=== PATIENT | male | born 1965 | race Caucasian/White ===

== ENCOUNTER 2017-06-16 23:51 | Emergency (ER) | payer OTHER ==
[2017-06-17 00:24] VITALS: BP 129/73; PULSE 87; TEMP 97.7; BMI 37.3
--- NOTE | 2017-06-17 00:50 | PDOC ---
History of Present Illness - General History Source: Patient Exam Limitations: No Limitations, Intoxication - History of Present Illness Initial Comments: 06/17/17 01:20 The patient is a 52 year old male with a significant past medical history of myocardial infarction, bladder cancer, diabetes mellitus, dementia, hypertension , and hyperlipidemia, who presents to the emergency department complaining of nausea, vomiting and diaphoresis s/p alcohol consumption at the bar (approx. 6 or 7 Timoteo Contreras shots at the bar per patient). The patient states he felt fine at the bar but upon arriving home he began feeling nausea and vomited 1x. He reports associated symptoms of diaphoresis. He denies any recent fevers, chills , headache or dizziness. He denies any recent chest pain or shortness of breath. Allergies: Penicillins PCP: Dr. Kylie Moralez <Edu Kirby - Last Filed: 06/17/17 01:20> <Aditi Arguello - Last Filed: 06/17/17 05:11> - General Chief Complaint: Nausea/Vomiting Stated Complaint: NAUSEA/VOMITING Time Seen by Provider: 06/17/17 00:49 Past History <Edu Kirby - Last Filed: 06/17/17 01:20> - Past Medical History Anemia: No Asthma: No Cancer: Yes (bladder) Cardiac Disorders: Yes ([place] with cardiac stents) COPD: No Dementia: Yes Diabetes: Yes HTN: Yes Hypercholesterolemia: Yes Seizures: No - Surgical History Appendectomy: Yes Neurologic Surgery: No - Immunization History Immunization Up to Date: Yes - Suicide/Smoking/Psychosocial Hx Smoking History: Former smoker Have you smoked in the past 12 months: No Number of Cigarettes Smoked Daily: 20 If you are a former smoker, when did you quit?: 2013 Information on smoking cessation initiated: No 'Breaking Loose' booklet given: 05/27/15 Hx Alcohol Use: Yes Drug/Substance Use Hx: No Substance Use Type: None Hx Substance Use Treatment: No <Aditi Arguello - Last Filed: 06/17/17 05:11> - Past Medical History Allergies/Adverse Reactions: Allergies Allergy/AdvReac Type Severity Reaction Status Date / Time Penicillins AdvReac Verified 06/17/17 00:24 Home Medications: Ambulatory Orders Amlodipine Besylate [Norvasc -] 10 mg PO DAILY tablet 01/21/16 Lisinopril [Prinivil] 10 mg PO DAILY tablet 01/21/16 Oxycodone HCl/Acetaminophen [Percocet 5-325 mg Tablet] 1 - 2 tab PO Q6H PRN #20 tablet MDD 40 01/21/16 Review of Systems - Review of Systems Comments:: 06/17/17 01:25 GENERAL/CONSTITUTIONAL: No weakness. HEAD, EYES, EARS, NOSE AND THROAT: No change in vision. No ear pain or discharge. No sore throat. CARDIOVASCULAR: No chest pain or shortness of breath. RESPIRATORY: No cough, wheezing, or hemoptysis. GASTROINTESTINAL: +Nausea. +Vomiting. No diarrhea or constipation. GENITOURINARY: No dysuria, frequency, or change in urination. MUSCULOSKELETAL: No joint or muscle swelling or pain. No neck or back pain. SKIN: No rash NEUROLOGIC: No headache, vertigo, loss of consciousness, or change in strength/ sensation. ENDOCRINE: No increased thirst. No abnormal weight change. HEMATOLOGIC/LYMPHATIC: No anemia, easy bleeding, or history of blood clots. ALLERGIC/IMMUNOLOGIC: No hives or skin allergy. <Edu Kirby - Last Filed: 06/17/17 01:20> *Physical Exam - Vital Signs Last Vital Signs Temp Pulse Resp BP Pulse Ox 97.7 F 87 18 129/73 97 06/17/17 00:17 06/17/17 00:17 06/17/17 00:17 06/17/17 00:17 06/17/17 00:17 - Physical Exam Comments: 06/17/17 01:28 GENERAL: Awake, alert, and fully oriented, in no acute distress HEAD: No signs of trauma EYES: PERRLA, EOMI, sclera anicteric, conjunctiva clear ENT: +Dry mucous membranes. Auricles normal inspection, hearing grossly normal, nares patent, oropharynx clear without exudates. NECK: Normal ROM, supple, no lymphadenopathy, JVD, or masses LUNGS: Breath sounds equal, clear to auscultation bilaterally. No wheezes, and no crackles HEART: Regular rate and rhythm, normal S1 and S2, no murmurs, rubs or gallops ABDOMEN: +Diffuse abdominal tenderness. Soft, normoactive bowel sounds. No guarding, no rebound. No masses EXTREMITIES: Normal range of motion, no edema. No clubbing or cyanosis. No cords, erythema, or tenderness NEUROLOGICAL: Cranial nerves II through XII grossly intact. Normal speech, normal gait SKIN: Warm, Dry, normal turgor, no rashes or lesions noted. <Edu Kirby - Last Filed: 06/17/17 01:20> - Vital Signs Last Vital Signs Temp Pulse Resp BP Pulse Ox 97.7 F 87 18 129/73 97 06/17/17 00:17 06/17/17 00:17 06/17/17 00:17 06/17/17 00:17 06/17/17 00:17 <Aditi Arguello - Last Filed: 06/17/17 05:11> ED Treatment Course - LABORATORY CBC & Chemistry Diagram: 06/17/17 01:33 06/17/17 01:33 <Aditi Arguello - Last Filed: 06/17/17 05:11> Medical Decision Making - Medical Decision Making 06/17/17 05:08 Pt is diabeticc and HTN and states that he went out to a bar with friend and had a lot of alcoholic beverages to drink. Pt hasn't had a drink in 30 yrs, and states that the alcohol didn't agree with him. Pt appears dehydrated. He feels better after a liter of hydration. Labs are normal. Glc is elevated. Pt will be discharged home with suggestion not to drink. Alcohol level was <5 in the ER. <Aditi Arguello - Last Filed: 06/17/17 05:11> *DC/Admit/Observation/Transfer - Attestations Scribe Attestion: 06/17/17 01:30 Documentation prepared by Edu Kirby, acting as director medical writing for Aditi Arguello MD. <Edu Kirby - Last Filed: 06/17/17 01:20> - Discharge Dispostion Admit: No <Aditi Arguello - Last Filed: 06/17/17 05:11> Diagnosis at time of Disposition: Nausea & vomiting, Alcohol poisoning - Discharge Dispostion Disposition: HOME Condition at time of disposition: Improved - Referrals Referrals: Kylie Sanches MD [Primary Care Provider] - - Patient Instructions Printed Discharge Instructions: DI for Nausea -- Adult, DI for Vomiting -- Adult, DI for Alcohol Poisoning
[2017-06-17] MEDS ORDERED: SODIUM CHLORIDE 0.9% 1000 ML INFUS.BAG IV ONE (01:16)
[2017-06-17] MEDS ORDERED: FAMOTIDINE 20 MG/50 ML IVPB 50 ML IVPB ONE (01:17)
[2017-06-17 02:00] LABS: BASOPHIL 0.4 % (0-2.0); EOSINOPHIL 0.6 % (0-4.5); MCHC 33.9 g/dl (32.0-35.9); MEAN CELL VOLUME 85.7 fl (80-96); MEAN PLT VOLUME 8.3 fl (7.5-11.1); NEUTROPHILS 84.3 % (42.8-82.8); PLATELET COUNT 238 K/MM3 (134-434); RDW 13.1 % (11.9-15.9); WHITE BLOOD COUNT 14.2 K/mm3 (4.0-10.0)
[2017-06-17 02:31] LABS: ALBUMIN 3.6 g/dl (3.4-5.0); ANION GAP 10 (8-16); BILIRUBIN,TOTAL 0.5 mg/dL (0.2-1.0); CALCIUM 9.2 mg/dL (8.5-10.1); CO2 25 mmol/L (21-32); CREATININE 1.2 mg/dL (0.7-1.3); GLUCOSE,RANDOM 259 mg/dL (74-106); SGOT/AST 15 U/L (15-37); SGPT/ALT 44 U/L (12-78); TOT PROT 6.5 g/dl (6.4-8.2)
[2017-06-17 02:34] LABS: ALK PHOS 104 U/L (45-117); CPK 58 IU/L (39-308); TROPONIN I < 0.02 ng/ml (0.00-0.05)
[2017-06-17 05:48] LABS: ACETONE SERUM NEGATIVE (NEGATIVE)
--- NOTE | 2017-06-18 08:43 | EKG ---
Test Reason : Blood Pressure : / mmHG Vent. Rate : 084 BPM Atrial Rate : 084 BPM P-R Int : 160 ms QRS Dur : 096 ms QT Int : 374 ms P-R-T Axes : 021 -13 092 degrees QTc Int : 441 ms SINUS RHYTHM WITH PREMATURE ATRIAL COMPLEXES CANNOT RULE OUT ANTERIOR INFARCT (CITED ON OR BEFORE 17-JUN-2017) T WAVE ABNORMALITY, CONSIDER LATERAL ISCHEMIA ABNORMAL ECG Confirmed by MD JER, JM ([id number]) on 06/18/2017 8:43:42 AM Referred By: Confirmed By:JM RANDLE MD
== END 2017-06-17 04:28 | disposition home or self-care (01) ==
LOC: JER 23:51
PROC: 3E033GC Introduction of Other Therapeutic Substance into Peripheral Vein, Percutaneous Approach (ICD-10-PCS; principal; 2017-06-16)
DX: F10.10 Alcohol abuse, uncomplicated (principal); R11.2 Nausea with vomiting, unspecified; I25.10 Atherosclerotic heart disease of native coronary artery without angina pectoris; I10 Essential (primary) hypertension; Z95.5 Presence of coronary angioplasty implant and graft; Z87.891 Personal history of nicotine dependence; E11.9 Type 2 diabetes mellitus without complications; E78.00 Pure hypercholesterolemia, unspecified; F03.90 Unspecified dementia, unspecified severity, without behavioral disturbance, psychotic disturbance, mood disturbance, and anxiety; Z85.51 Personal history of malignant neoplasm of bladder
CPT/HCPCS: 36415; 71010-TC; 80053; 80307; 82009; 84484; 85025; 93005; 93010; 96365; 99283-25

== ENCOUNTER 2017-07-06 00:43 | Emergency (ER) | payer OTHER ==
[2017-07-06 01:02] VITALS: BP 171/98; PULSE 92; TEMP 98.4; BMI 37.3
--- NOTE | 2017-07-06 01:08 | PDOC ---
History of Present Illness - General Chief Complaint: Rash Stated Complaint: RASH Time Seen by Provider: 07/06/17 01:07 History Source: Patient - History of Present Illness Initial Comments: 07/06/17 01:23 52 year old male with itchy rash to b/l hadn arm, buttocks and b/l thigh. reports recently living in basement of house. unsure of any skin contact. patient with multiple medical history. Past History - Past Medical History Allergies/Adverse Reactions: Allergies Allergy/AdvReac Type Severity Reaction Status Date / Time Penicillins AdvReac Verified 07/06/17 01:02 Home Medications: Ambulatory Orders Amlodipine Besylate [Norvasc -] 10 mg PO DAILY tablet 01/21/16 Lisinopril [Prinivil] 10 mg PO DAILY tablet 01/21/16 Permethrin [Elimite] 60 gm TP ONCE #1 cream..g. 07/06/17 Anemia: No Asthma: No Cancer: Yes (bladder) Cardiac Disorders: Yes ([place] with cardiac stents) COPD: No Dementia: Yes Diabetes: Yes HTN: Yes Hypercholesterolemia: Yes Seizures: No - Surgical History Appendectomy: Yes Neurologic Surgery: No - Immunization History Immunization Up to Date: Yes - Suicide/Smoking/Psychosocial Hx Smoking History: Current every day smoker Have you smoked in the past 12 months: Yes Number of Cigarettes Smoked Daily: 10 If you are a former smoker, when did you quit?: 2012 Information on smoking cessation initiated: No 'Breaking Loose' booklet given: 05/27/15 Hx Alcohol Use: No Drug/Substance Use Hx: No Substance Use Type: None Hx Substance Use Treatment: No *Physical Exam - Vital Signs Last Vital Signs Temp Pulse Resp BP Pulse Ox 98.4 F 92 H 18 171/98 97 07/06/17 00:52 07/06/17 00:52 07/06/17 00:52 07/06/17 00:52 07/06/17 00:52 - Physical Exam General Appearance: Yes: Appropriately Dressed Extremity: positive: Other (+ interphalangeal b/l arm, groin abdomen, thigh some lesions scabbed) Neurologic: positive: Fully Oriented, Alert, Normal Mood/Affect Progress Note - Progress Note Progress Note: A; scabies P:permetherin. all precautions reviewed. patient verbalized understanding. *DC/Admit/Observation/Transfer Diagnosis at time of Disposition: Scabies - Discharge Dispostion Disposition: HOME - Prescriptions Prescriptions: Permethrin [Elimite] 60 gm TP ONCE #1 cream..g. - Referrals Referrals: Kylie Sanches MD [Primary Care Provider] - - Patient Instructions Printed Discharge Instructions: DI for Scabies Additional Instructions: apply permetherine as per order. - Post Discharge Activity Forms/Work/School Notes: Back to Work
--- NOTE | 2017-07-06 01:23 | PDOC ---
*Physical Exam - Vital Signs Last Vital Signs Temp Pulse Resp BP Pulse Ox 98.4 F 92 H 18 171/98 97 07/06/17 00:52 07/06/17 00:52 07/06/17 00:52 07/06/17 00:52 07/06/17 00:52 Medical Decision Making - Medical Decision Making 07/06/17 01:23 agree with care from MESERET Belle *DC/Admit/Observation/Transfer Diagnosis at time of Disposition: Scabies - Discharge Dispostion Disposition: HOME - Prescriptions Prescriptions: Permethrin [Elimite] 60 gm TP ONCE #1 cream..g. - Referrals Referrals: Kylie Sanches MD [Primary Care Provider] - - Patient Instructions Printed Discharge Instructions: DI for Scabies Additional Instructions: apply permetherine as per order. - Post Discharge Activity Forms/Work/School Notes: Back to Work
== END 2017-07-06 01:56 | disposition home or self-care (01) ==
LOC: JER 00:43
DX: B86 Scabies (principal); F17.210 Nicotine dependence, cigarettes, uncomplicated; Z88.0 Allergy status to penicillin
CPT/HCPCS: 99281-25

== ENCOUNTER 2017-09-25 15:27 | Emergency (ER) | payer OTHER ==
--- NOTE | 2017-09-25 15:38 | PDOC ---
Rapid Medical Evaluation Time Seen by Provider: 09/25/17 15:35 Medical Evaluation: Allergies Allergy/AdvReac Type Severity Reaction Status Date / Time Penicillins AdvReac Verified 07/06/17 01:02 09/25/17 15:35 I have performed a brief in-person evaluation of this patient. The patient presents with a chief complaint of: H/o DM, neuropathy, CAD, ventral hernia, tob hx, recurrent bladder cancer w/ urinary retention s/p cystoscopy last week. F/u with Dr Ford Pertinent physical exam findings:Exam unremarkable I have ordered the following:cbc/chem/ua/cx The patient will proceed to the ED for further evaluation. 09/25/17 15:42
[2017-09-25 15:40] VITALS: TEMP 98.6; BMI 37.3
[2017-09-25 16:09] LABS: BASO % 1.1 % (0-2.0); EOS % 4.7 % (0-4.5); HEMATOCRIT 44.7 % (35.4-49); HEMOGLOBIN 15.1 GM/dL (11.7-16.9); MCH 28.9 pg (25.7-33.7); MCHC 33.7 g/dl (32.0-35.9); MEAN CELL VOLUME 85.6 fl (80-96); MEAN PLT VOLUME 8.5 fl (7.5-11.1); NEUT % 49.2 % (42.8-82.8); PLATELET COUNT 227 K/MM3 (134-434); RBC 5.22 M/mm3 (4.00-5.60); RDW 12.7 % (11.9-15.9); WHITE BLOOD COUNT 5.7 K/mm3 (4.0-10.0)
[2017-09-25 16:31] LABS: URINE APPEARANCE SLCLOUDY; URINE BILIRUBIN NEGATIVE (NEGATIVE); URINE BLOOD 2+ (NEGATIVE); URINE COLOR DKYELLOW; URINE GLUCOSE (UA) 1+ (NEGATIVE); URINE KETONE TRACE (NEGATIVE); URINE NITRITE NEGATIVE (NEGATIVE)
[2017-09-25 16:32] LABS: ALBUMIN 3.6 g/dl (3.4-5.0); ALK PHOS 123 U/L (45-117); ANION GAP 6 (8-16); BILIRUBIN,TOTAL 0.4 mg/dL (0.2-1.0); BLOOD UREA NITROGEN 18 mg/dL (7-18); CALCIUM 8.7 mg/dL (8.5-10.1); CHLORIDE 109 mmol/L (98-107); CO2 27 mmol/L (21-32); CREATININE 1.1 mg/dL (0.7-1.3); GLUCOSE,RANDOM 172 mg/dL (74-106); POTASSIUM 3.7 mmol/L (3.5-5.1); SGOT/AST 18 U/L (15-37); SGPT/ALT 47 U/L (12-78); SODIUM 142 mmol/L (136-145); TOT PROT 6.7 g/dl (6.4-8.2)
[2017-09-25 16:41] LABS: URINE LEUK ESTERASE 1+ (NEGATIVE); URINE PROTEIN 1+ (NEGATIVE)
[2017-09-25 16:44] LABS: EPI CELLS RARE /HPF (FEW); URINE MUCUS FEW
--- NOTE | 2017-09-25 17:03 | PDOC ---
History of Present Illness - General History Source: Patient Exam Limitations: No Limitations - History of Present Illness Initial Comments: 09/25/17 17:11 The patient is a 52 year old male with history of prostate CA with recurrence discovered several weeks ago, hypertension, hyperlipidemia, IDDM with peripheral neuropathies, CAD s/p [place] s/p stents, cigarette smoking, who presents to the ED complaining of urinary retention that began last night. The patient reports he had a cystoscopy last week and subsequently has had difficulty with urination. He is able to produce small amounts of urine, but reports it feels blocked. He also reports associated sharp pain in his penis. No flank pain. No fever or chills. No hematuria or dysuria. No nausea, vomiting, or diarrhea. Urologist: Dr. Lafleur <Tati Hilton - Last Filed: 09/25/17 18:18> <Stella Belle - Last Filed: 09/25/17 18:23> - General Chief Complaint: Urinary Problem Stated Complaint: POST-SURG/ URINARY RETENTION Time Seen by Provider: 09/25/17 15:35 Past History <Tati Hilton - Last Filed: 09/25/17 18:18> - Past Medical History Anemia: No Asthma: No Cancer: Yes (bladder) Cardiac Disorders: Yes ([place] with cardiac stents) COPD: No Dementia: Yes Diabetes: Yes HTN: Yes Hypercholesterolemia: Yes Seizures: No - Surgical History Appendectomy: Yes Neurologic Surgery: No - Immunization History Immunization Up to Date: Yes - Suicide/Smoking/Psychosocial Hx Smoking History: Current every day smoker Have you smoked in the past 12 months: Yes Number of Cigarettes Smoked Daily: 10 If you are a former smoker, when did you quit?: 2013 Information on smoking cessation initiated: No 'Breaking Loose' booklet given: 05/27/15 Hx Alcohol Use: No Drug/Substance Use Hx: No Substance Use Type: None Hx Substance Use Treatment: No <Stella Belle - Last Filed: 09/25/17 18:23> - Past Medical History Allergies/Adverse Reactions: Allergies Allergy/AdvReac Type Severity Reaction Status Date / Time Penicillins AdvReac Verified 09/25/17 15:40 Home Medications: Ambulatory Orders Aspirin [ASA -] 81 mg PO DAILY 09/25/17 Atorvastatin Ca [Lipitor] 80 mg PO HS 09/25/17 Ciprofloxacin [Cipro -] 500 mg PO Q12H #20 tablet 09/25/17 Duloxetine HCl [Cymbalta -] 30 mg PO DAILY 09/25/17 Furosemide [Lasix -] 40 mg PO DAILY 09/25/17 Gabapentin 600 mg PO TID 09/25/17 Hydralazine HCl [Apresoline -] 25 mg PO BID 09/25/17 Insulin (Novolog 70/30) [Novolog Mix 70/30 Flexpen -] 20 units SQ BIDAC Insulin Glargine,Hum.rec.anlog [Basaglar Kwikpen U-100] 20 unit SQ DAILY Lisinopril [Prinivil -] 40 mg PO DAILY 09/25/17 Metoprolol Tartrate [Lopressor -] 25 mg PO DAILY 09/25/17 Naproxen [Naprosyn -] 500 mg PO BID PRN 09/25/17 Potassium Chloride [K-Dur -] 20 meq PO DAILY 09/25/17 Ranitidine HCl [Zantac 75] 75 mg PO DAILY 09/25/17 Tramadol HCl [Ultram] 100 mg PO Q8H PRN 09/25/17 Review of Systems - Review of Systems Able to Perform ROS?: Yes Comments:: 09/25/17 17:23 CONSTITUTIONAL: Absent: fever, chills, diaphoresis, generalized weakness, malaise, loss of appetite HEENT: Absent: rhinorrhea, nasal congestion, throat pain, throat swelling, difficulty swallowing, mouth swelling, ear pain, eye pain, visual Changes CARDIOVASCULAR: Absent: chest pain, syncope, palpitations, irregular heart rate, lightheadedness , peripheral edema RESPIRATORY: Absent: cough, shortness of breath, dyspnea with exertion, orthopnea, wheezing, stridor, hemoptysis GASTROINTESTINAL: Absent: abdominal pain, abdominal distension, nausea, vomiting, diarrhea, constipation, melena, hematochezia GENITOURINARY: Present: urinary retention, penile pain Absent: dysuria, frequency, urgency, hematuria, flank pain MUSCULOSKELETAL: Absent: myalgia, arthralgia, joint swelling SKIN: Absent: rash, itching, pallor HEMATOLOGIC/IMMUNOLOGIC: Absent: easy bleeding, easy bruising, lymphadenopathy, frequent infections ENDOCRINE: Absent: unexplained weight gain, unexplained weight loss, heat intolerance, cold intolerance NEUROLOGIC: Absent: headache, focal weakness or paresthesias, dizziness, unsteady gait, seizure, mental status changes, bladder or bowel incontinence PSYCHIATRIC: Absent: anxiety, depression, suicidal or homicidal ideation, hallucinations. <Tati Hilton - Last Filed: 09/25/17 18:18> *Physical Exam - Vital Signs Last Vital Signs Temp Pulse Resp BP Pulse Ox 98.6 F 98 H 20 159/87 97 09/25/17 15:35 09/25/17 15:35 09/25/17 15:35 09/25/17 15:35 09/25/17 15:35 - Physical Exam Comments: 09/25/17 17:26 GENERAL: Well developed, well nourished. Awake and alert. No acute distress. +Obesity. HEENT: Normocephalic, atraumatic. PERRLA, EOMI. No conjunctival pallor. Sclera are non- icteric. Moist mucous membranes. Oropharynx is clear. NECK: Supple. Full ROM. No JVD. Carotid pulses 2+ and symmetric, without bruits. No thyromegaly. No lymphadenopathy. CARDIOVASCULAR: Regular rate and rhythm. No murmurs, rubs, or gallops. Distal pulses are 2+ and symmetric. PULMONARY: No evidence of respiratory distress. Lungs clear to auscultation bilaterally. No wheezing, rales or rhonchi. ABDOMINAL: Soft, protuberant abdomen. Non-tender. No rebound or guarding. No organomegaly. Normoactive bowel sounds. MUSCULOSKELETAL Normal range of motion at all joints. No bony deformities or tenderness. No CVA tenderness. EXTREMITIES: No cyanosis. No clubbing. No edema. No calf tenderness. SKIN: Warm and dry. Normal capillary refill. No rashes. No jaundice. NEUROLOGICAL: Alert, awake, appropriate. Cranial nerves 2-12 intact. No motor deficits in the in face, upper extremities and lower extremities. Normoreflexic in the upper and lower extremities. Normal speech. Gait is normal without ataxia. PSYCHIATRIC: Cooperative. Good eye contact. Appropriate mood and affect. <Tati Hilton - Last Filed: 09/25/17 18:18> - Vital Signs Last Vital Signs Temp Pulse Resp BP Pulse Ox 98.6 F 98 H 20 159/87 97 09/25/17 15:35 09/25/17 15:35 09/25/17 15:35 09/25/17 15:35 09/25/17 15:35 <YoshiSunilfernando Desouza - Last Filed: 09/25/17 18:23> ED Treatment Course - LABORATORY CBC & Chemistry Diagram: 09/25/17 15:52 09/25/17 15:52 - ADDITIONAL ORDERS Additional order review: Laboratory Results 09/25/17 09/25/17 16:15 15:52 Sodium 142 Potassium 3.7 Chloride 109 H Carbon Dioxide 27 Anion Gap 6 L BUN 18 Creatinine 1.1 Creat Clearance w eGFR > 60 Random Glucose 172 H D Calcium 8.7 Total Bilirubin 0.4 AST 18 ALT 47 Alkaline Phosphatase 123 H Total Protein 6.7 Albumin 3.6 Urine Color Dkyellow Urine Appearance Slcloudy Urine pH 5.0 Ur Specific [place] 1.027 Urine Protein 1+ H Urine Glucose (UA) 1+ H Urine Ketones Trace H Urine Blood 2+ H Urine Nitrite Negative Urine Bilirubin Negative Urine Urobilinogen 2.0 Urine WBC (Auto) 41 Urine RBC (Auto) 72 Ur Epithelial Cells Rare Urine Mucus Few 09/25/17 15:52 RBC 5.22 MCV 85.6 MCHC 33.7 RDW 12.7 MPV 8.5 Neutrophils % 49.2 D Lymphocytes % 31.0 D Monocytes % 14.0 H D Eosinophils % 4.7 H D Basophils % 1.1 <Tati Hilton - Last Filed: 09/25/17 18:18> - LABORATORY CBC & Chemistry Diagram: 09/25/17 15:52 09/25/17 15:52 - ADDITIONAL ORDERS Additional order review: Laboratory Results 09/25/17 09/25/17 16:15 15:52 Sodium 142 Potassium 3.7 Chloride 109 H Carbon Dioxide 27 Anion Gap 6 L BUN 18 Creatinine 1.1 Creat Clearance w eGFR > 60 Random Glucose 172 H D Calcium 8.7 Total Bilirubin 0.4 AST 18 ALT 47 Alkaline Phosphatase 123 H Total Protein 6.7 Albumin 3.6 Urine Color Dkyellow Urine Appearance Slcloudy Urine pH 5.0 Ur Specific [place] 1.027 Urine Protein 1+ H Urine Glucose (UA) 1+ H Urine Ketones Trace H Urine Blood 2+ H Urine Nitrite Negative Urine Bilirubin Negative Urine Urobilinogen 2.0 Urine WBC (Auto) 41 Urine RBC (Auto) 72 Ur Epithelial Cells Rare Urine Mucus Few 09/25/17 15:52 RBC 5.22 MCV 85.6 MCHC 33.7 RDW 12.7 MPV 8.5 Neutrophils % 49.2 D Lymphocytes % 31.0 D Monocytes % 14.0 H D Eosinophils % 4.7 H D Basophils % 1.1 <Stella Belle - Last Filed: 09/25/17 18:23> Medical Decision Making - Medical Decision Making 09/25/17 18:[address] Jessica, covering physician for pt's urologist. Agreed with plan to d/c pt on antiobiotics and will see patient in office tomorrow. <Tati Hilton - Last Filed: 09/25/17 18:18> *DC/Admit/Observation/Transfer - Attestations Scribe Attestion: 09/25/17 17:27 Documentation prepared by Tati Hilton, acting as medical director occupational health for Stella Belle MD. <Tati Hilton - Last Filed: 09/25/17 18:18> <Stella Belle - Last Filed: 09/25/17 18:23> Diagnosis at time of Disposition: Dysuria UTI (urinary tract infection) Qualifiers: Urinary tract infection type: site unspecified Hematuria presence: without hematuria Qualified Code(s): N39.0 - Urinary tract infection, site not specified - Discharge Dispostion Disposition: HOME Condition at time of disposition: Stable - Prescriptions Prescriptions: Ciprofloxacin [Cipro -] 500 mg PO Q12H #20 tablet - Referrals Referrals: Purnima Chapman MD [Primary Care Provider] - Frandy Ford MD [Staff Physician] - - Patient Instructions Printed Discharge Instructions: DI for Urinary Tract Infection (UTI) Additional Instructions: please order picker your antibiotic prescription at your pharmacy See Dr Ford tomorrow, please call the office in the morning to get an exact time - Post Discharge Activity
[2017-09-25] MEDS ORDERED: LEVOFLOXACIN 500 MG TABLET (FP) PO ONE (18:17)
[2017-09-25] MEDS ORDERED: LEVOFLOXACIN 500 MG TABLET (FP) ONE (18:27)
[2017-09-25 18:31] VITALS: BP 146/82; PULSE 85
--- NOTE | 2017-09-28 07:56 | PDOC ---
Patient Follow-up (Call Back) - Post ED Follow - Up Condition at time of discharge: Stable Disposition at time of original discharge: HOME Reason for Call Back: Abnwl. Microbiology (Urine preliminary shows group D strep or enterococcus greater than 100,000. Patient has a Cerrato catheter and was placed on Cipro upon discharge. Will await final report.)
== END 2017-09-25 18:31 | disposition home or self-care (01) ==
LOC: JER 15:27
DX: N39.0 Urinary tract infection, site not specified (principal); Z98.890 Other specified postprocedural states; N99.89 Other postprocedural complications and disorders of genitourinary system; I25.2 Old myocardial infarction; F17.210 Nicotine dependence, cigarettes, uncomplicated; I25.10 Atherosclerotic heart disease of native coronary artery without angina pectoris; I10 Essential (primary) hypertension; Z95.5 Presence of coronary angioplasty implant and graft; E10.9 Type 1 diabetes mellitus without complications; Z79.4 Long term (current) use of insulin; E78.5 Hyperlipidemia, unspecified; Z85.46 Personal history of malignant neoplasm of prostate; C61 Malignant neoplasm of prostate; G62.9 Polyneuropathy, unspecified
CPT/HCPCS: 36415; 80053; 81003; 81015; 85025; 87086; 87186; 99281-25

== ENCOUNTER 2018-02-06 09:12 | Day surgery (SDC) | payer OTHER ==
[2018-02-06 10:00] VITALS: BMI 38.0
[2018-02-06] MEDS ORDERED: PROPOFOL 20 ML ONE ×2 (10:10)
[2018-02-06] MEDS ORDERED: LIDOCAINE HCL/PF 2% SDV 5ML VIAL ONE (10:10)
[2018-02-06 11:25] VITALS: TEMP 97.5
[2018-02-06 11:45] VITALS: PULSE 72
[2018-02-06 12:43] VITALS: BP 139/63
== END 2018-02-06 12:39 | disposition home or self-care (01) ==
LOC: JASU-ENDO 09:12
PROVIDERS: ATTEND Internal Medicine Gastroenterology
PROC: 0DJD8ZZ Inspection of Lower Intestinal Tract, Via Natural or Artificial Opening Endoscopic (ICD-10-PCS; principal; 2018-02-06 09:45)
DX: Z12.11 Encounter for screening for malignant neoplasm of colon (principal); Z53.8 Procedure and treatment not carried out for other reasons; I10 Essential (primary) hypertension; E11.9 Type 2 diabetes mellitus without complications; E66.01 Morbid (severe) obesity due to excess calories
CPT/HCPCS: 82962

== ENCOUNTER 2018-06-06 14:26 | Observation (INO) | payer OTHER ==
[2018-06-06 14:33] VITALS: BMI 36.6
[2018-06-06 15:01] LABS: BASO % 0.9 % (0-2.0); EOS % 5.7 % (0-4.5); HEMATOCRIT 42.4 % (35.4-49); HEMOGLOBIN 14.7 GM/dL (11.7-16.9); LYMPH % 30.2 % (8-40); MCH 29.7 pg (25.7-33.7); MCHC 34.6 g/dl (32.0-35.9); MEAN CELL VOLUME 85.8 fl (80-96); MEAN PLT VOLUME 8.3 fl (7.5-11.1); MONO % 8.8 % (3.8-10.2); NEUT % 54.4 % (42.8-82.8); PLATELET COUNT 282 K/MM3 (134-434); RBC 4.94 M/mm3 (4.00-5.60); WHITE BLOOD COUNT 7.6 K/mm3 (4.0-10.0)
--- NOTE | 2018-06-06 15:08 | PDOC ---
Attending Attestation - Resident Resident Name: Isabella Moore - ED Attending Attestation I have performed the following: I have examined & evaluated the patient, The case was reviewed & discussed with the resident, I agree w/resident's findings & plan, Exceptions are as noted - HPI HPI: 06/06/18 17:54 53 year old male, with a significant PMH of six myocardial infarctions s/p multiple stents, prostate cancer, diabetes mellitus, peripheral neuropathy, arthritis, sleep apnea, hypertension, hyperlipidemia, hernia presents to the ED from [facility] after rapid response was called due to syncopal episode. Pt had 10/ 10 CP radiating to back while mowing the lawn today, was found down on the lawn by family and rode to the ED on his motorcycle for evaluation. On arrival to hospital [facility], pt c/o severe cp and rapid response was called. Denies SOB, fevers, chills, headache, abd pain, N/V/D, LE edema. - Physicial Exam PE: 06/06/18 17:55 agree with resident exam - Medical Decision Making 06/06/18 15:07 53yo M with significant cardiac hx presents to the ED with 10/10 CP radiating to the back and syncope. Given concern for aortic dissection, CTA chest, abdomen , pelvis w/wo was obtained prior to return of creatinine. Study negative. DDx includes ACS vs PNA vs MSk pain. No large PE seen on CTA imaging and pt with no hypoxia, SOB. Will admit for cardiac work up. During ED stay, pt noted to have brief episodes where he is "unresponsive" with no prodrome or post ictal period. Pt often responds to voice but states he is "sleeping." Given known prostate ca, will scan his head. Pt admitted to hospitalist for further management. Heart Score/ECG Review #1 06/06/18 17:59 Twelve-lead EKG was performed and reviewed by me. Normal sinus rhythm, rate 88. Normal axis and intervals. No ST elevations. T wave inversion in lead aVL.
[2018-06-06 15:23] LABS: ALBUMIN 3.9 g/dl (3.4-5.0); ALK PHOS 113 U/L (45-117); ANION GAP 11 MMOL/L (8-16); BILIRUBIN,TOTAL 0.5 mg/dL (0.2-1.0); BLOOD UREA NITROGEN 23 mg/dL (7-18); CALCIUM 9.7 mg/dL (8.5-10.1); CHLORIDE 107 mmol/L (98-107); CO2 26 mmol/L (21-32); CREATININE 1.2 mg/dL (0.7-1.3); GLUCOSE,RANDOM 139 mg/dL (74-106); INR 0.99 (0.83-1.09); POTASSIUM 3.8 mmol/L (3.5-5.1); PROTHROMBIN TIME (PATIENT) 11.2 SEC (9.7-13.0); SGOT/AST 14 U/L (15-37); SGPT/ALT 36 U/L (12-78); SODIUM 144 mmol/L (136-145); TOT PROT 6.7 g/dl (6.4-8.2)
--- NOTE | 2018-06-06 15:27 | PDOC ---
History of Present Illness - General Chief Complaint: Chest Pain Stated Complaint: CHEST PAIN, SYNCOPE (RAPID RESPONSE) Time Seen by Provider: 06/06/18 14:37 History Source: Patient Exam Limitations: No Limitations - History of Present Illness Initial Comments: 06/06/18 15:27 53 year old w/ a PMH of six myocardial infarctions s/p multiple stents, prostate cancer, diabetes mellitus, peripheral neuropathy, arthritis, sleep apnea, hypertension, hyperlipidemia, hernia, who presents to the ED with sudden onset chest pain that is described as "ripping" and associated with mid-back pain that occurred when he was mowing the lawn. The patient denies nausea, diaphoresis, vomiting, or loss of consciousness. The patient also notes L shoulder pain, shortness of breath but denies abdominal pain, weakness, headache , recent illness or fevers. He has no other complaints at bedside PMHX: as in HPI PSHX: see below Meds: see below Allergies: penicillin Past History - Past Medical History Allergies/Adverse Reactions: Allergies Allergy/AdvReac Type Severity Reaction Status Date / Time Penicillins AdvReac Verified 06/06/18 14:29 Home Medications: Ambulatory Orders Atorvastatin Ca [Lipitor] 80 mg PO HS 09/25/17 Duloxetine HCl [Cymbalta -] 60 mg PO DAILY 09/25/17 Insulin (Novolog 70/30) [Novolog Mix 70/30 Flexpen -] 34 units SQ BIDAC Naproxen [Naprosyn -] 500 mg PO HS PRN 09/25/17 Sitagliptin Phosphate [Januvia] 100 mg PO DAILY 04/24/18 Amlodipine Besylate [Norvasc -] 10 mg PO DAILY tablet 04/25/18 Aspirin [ASA -] 81 mg PO DAILY tab.chew 04/25/18 Clopidogrel Bisulfate [Plavix -] 75 mg PO DAILY tablet 04/25/18 Furosemide [Lasix -] 40 mg PO DAILY tablet 04/25/18 Gabapentin [Neurontin -] 600 mg PO TID capsule 04/25/18 Lisinopril [Prinivil] 40 mg PO DAILY tablet 04/25/18 Metoprolol Tartrate [Lopressor -] 25 mg PO DAILY tablet 04/25/18 hydrALAZINE HCL [Apresoline -] 25 mg PO BID tablet 04/25/18 Metoprolol Tartrate [Lopressor -] 25 mg PO BID 06/06/18 Anemia: No Asthma: No Cancer: Yes (bladder multiple times and at present time) Cardiac Disorders: Yes (SD with cardiac stents) COPD: No Dementia: Yes Diabetes: Yes (IDDM) HTN: Yes Hypercholesterolemia: Yes Seizures: No - Surgical History Abdominal Surgery: Yes (REPAIR UMBILICAL HERNIA) Appendectomy: Yes Neurologic Surgery: No Orthopedic Surgery: (rotator cuff) - Immunization History Immunization Up to Date: Yes - Suicide/Smoking/Psychosocial Hx Smoking History: Current some day smoker Have you smoked in the past 12 months: Yes Number of Cigarettes Smoked Daily: 2 If you are a former smoker, when did you quit?: 2012 Information on smoking cessation initiated: No 'Breaking Loose' booklet given: 02/06/18 Hx Alcohol Use: No Drug/Substance Use Hx: No Substance Use Type: None Hx Substance Use Treatment: No Review of Systems - Review of Systems Able to Perform ROS?: Yes Is the patient limited [place]uran proficient: No Constitutional: No: Chills, Diaphoresis, Fever HEENTM: No: Blurred Vision, Tinnitus Respiratory: No: Cough, Orthopnea, Shortness of Breath Cardiac (ROS): Yes: See HPI, Chest Pain. No: Syncope ABD/GI: No: Constipated, Diarrhea, Nausea, Vomiting : No: Burning, Dysuria, Pain Musculoskeletal: Yes: See HPI, Back Pain Integumentary: No: Flushing Neurological: No: Headache, Numbness, Tingling, Tremors *Physical Exam - Vital Signs Last Vital Signs Temp Pulse Resp BP Pulse Ox 98.7 F 93 H 20 110/66 95 06/06/18 14:30 06/06/18 14:30 06/06/18 14:30 06/06/18 14:30 06/06/18 14:30 - Physical Exam Comments: GENERAL: Awake, alert, and fully oriented, stopped mid conversation to clutch chest in pain, subsequently appearing confused, unresponsive to name, expresses confusion to location HEAD: No signs of trauma, normocephalic, atraumatic EYES: EOMI, sclera anicteric, conjunctiva clear ENT: oropharynx clear without exudates. Moist mucosa NECK: Normal ROM, supple, no lymphadenopathy, JVD, or masses LUNGS: No distress, speaks full sentences, clear to auscultation bilaterally HEART: Regular rate and rhythm, normal S1 and S2, no murmurs, rubs or gallops, peripheral pulses normal and equal bilaterally. ABDOMEN: Soft, nontender, normoactive bowel sounds. No guarding, no rebound. No masses EXTREMITIES : Normal inspection, Normal range of motion, no edema. No clubbing or cyanosis. NEUROLOGICAL: Normal speech, normal gait, no focal sensorimotor deficits SKIN: Warm, Dry, normal turgor, no rashes or lesions noted ED Treatment Course - LABORATORY CBC & Chemistry Diagram: 06/07/18 06:50 06/07/18 06:50 Medical Decision Making - Medical Decision Making 06/06/18 15:52 53 year old w/ a PMH of six myocardial infarctions s/p multiple stents, prostate cancer, diabetes mellitus, peripheral neuropathy, arthritis, sleep apnea, hypertension, hyperlipidemia, hernia, who presents to the ED with sudden onset chest pain that is described as "ripping" and associated with back pain that occurred when he was mowing the lawn. The patient also notes L shoulder pain and shortness of breath. DDX including but not limited to: STEMI vs aortic dissection vs unstable angina vs pericarditis W/U: - cbc, cmp, cardiac profile - CXR - EKG - CTA chest, abd Scores: Heart = 5 ED Course: Patient taken to CT scan for CTA by this press writer and attending. Dissection not apparent on CTA. 06/06/18 16:30 Dr. Chapman (PCP) paged via answering service for admission. 06/06/18 17:06 [facility] contacted for admission. They accepted patient 06/06/18 17:48 patient reassessed. stable. no acute distress. eating at bedside. *DC/Admit/Observation/Transfer Diagnosis at time of Disposition: Chest pain - Discharge Dispostion Condition at time of disposition: Stable Decision to Admit order: Yes - Referrals - Patient Instructions - Post Discharge Activity
--- NOTE | 2018-06-06 15:57 | EKG ---
Test Reason : Blood Pressure : / mmHG Vent. Rate : 088 BPM Atrial Rate : 088 BPM P-R Int : 162 ms QRS Dur : 088 ms QT Int : 366 ms P-R-T Axes : 012 -12 073 degrees QTc Int : 442 ms NORMAL SINUS RHYTHM NORMAL ECG WHEN COMPARED WITH ECG OF 25-APR-2018 11:03, NO SIGNIFICANT CHANGE WAS FOUND Confirmed by ALHAJI LEMUS MD ([id number]) on 06/06/2018 3:57:12 PM Referred By: Confirmed By:ALHAJI LEMUS MD
[2018-06-06] MEDS ORDERED: ALPRAZolam 0.25 MG TABLET PO ONE (17:22)
[2018-06-06] MEDS ORDERED: ALPRAZolam 0.25 MG TABLET ONE (17:32)
--- NOTE | 2018-06-06 17:33 | HP ---
CHIEF COMPLAINT: PCP: HISTORY OF PRESENT ILLNESS: ER course was notable for: (1) (2) (3) Recent Travel: PAST MEDICAL HISTORY: PAST SURGICAL HISTORY: Social History: Smoking: Alcohol: Drugs: Family History: Allergies Penicillins Adverse Reaction (Verified 06/06/18 14:29) HOME MEDICATIONS: Home Medications Medication Instructions Recorded Atorvastatin Ca [Lipitor] 80 mg PO HS 09/25/17 Duloxetine HCl [Cymbalta -] 60 mg PO DAILY 09/25/17 Insulin (Novolog 70/30) [Novolog 34 units SQ BIDAC 09/25/17 Mix 70/30 Flexpen -] Naproxen [Naprosyn -] 500 mg PO HS PRN 09/25/17 Sitagliptin Phosphate [Januvia] 100 mg PO DAILY 04/24/18 Amlodipine Besylate [Norvasc -] 10 mg PO DAILY tablet 04/25/18 Aspirin [ASA -] 81 mg PO DAILY tab.chew 04/25/18 Clopidogrel Bisulfate [Plavix -] 75 mg PO DAILY tablet 04/25/18 Furosemide [Lasix -] 40 mg PO DAILY tablet 04/25/18 Gabapentin [Neurontin -] 600 mg PO TID capsule 04/25/18 Insulin (Levemir) [Levemir Vial] 10 units SQ HS units 04/25/18 Lisinopril [Prinivil] 40 mg PO DAILY tablet 04/25/18 Metoprolol Tartrate [Lopressor -] 25 mg PO DAILY tablet 04/25/18 hydrALAZINE HCL [Apresoline -] 25 mg PO BID tablet 04/25/18 REVIEW OF SYSTEMS CONSTITUTIONAL: Absent: fever, chills, diaphoresis, generalized weakness, malaise, loss of appetite, weight change HEENT: Absent: rhinorrhea, nasal congestion, throat pain, throat swelling, difficulty swallowing, mouth swelling, ear pain, eye pain, visual changes CARDIOVASCULAR: Absent: chest pain, syncope, palpitations, irregular heart rate, lightheadedness , peripheral edema RESPIRATORY: Absent: cough, shortness of breath, dyspnea with exertion, orthopnea, wheezing, stridor, hemoptysis GASTROINTESTINAL: Absent: abdominal pain, abdominal distension, nausea, vomiting, diarrhea, constipation, melena, hematochezia GENITOURINARY: Absent: dysuria, frequency, urgency, hesitancy, hematuria, flank pain, genital pain MUSCULOSKELETAL: Absent: myalgia, arthralgia, joint swelling, back pain, neck pain SKIN: Absent: rash, itching, pallor HEMATOLOGIC/IMMUNOLOGIC: Absent: easy bleeding, easy bruising, lymphadenopathy, frequent infections ENDOCRINE: Absent: unexplained weight gain, unexplained weight loss, heat intolerance, cold intolerance NEUROLOGIC: Absent: headache, focal weakness or paresthesias, dizziness, unsteady gait, seizure, mental status changes, bladder or bowel incontinence PSYCHIATRIC: Absent: anxiety, depression, suicidal or homicidal ideation, hallucinations. PHYSICAL EXAMINATION Vital Signs - 24 hr 06/06/18 06/06/18 14:30 15:38 Temperature 98.7 F 98.1 F Pulse Rate 93 H 67 Pulse Rate [ 68 Left Apical] Respiratory 20 16 Rate Blood Pressure 110/66 Blood Pressure 111/72 [Right Arm] O2 Sat by Pulse 95 95 Oximetry (%) GENERAL: Awake, alert, and fully oriented, in no acute distress. HEAD: Normal with no signs of trauma. EYES: Pupils equal, round and reactive to light, extraocular movements intact, sclera anicteric, conjunctiva clear. No lid lag. EARS, NOSE, THROAT: Ears normal, nares patent, oropharynx clear without exudates. Moist mucous membranes. NECK: Normal range of motion, supple without lymphadenopathy, JVD, or masses. LUNGS: Breath sounds equal, clear to auscultation bilaterally. No wheezes, and no crackles. No accessory muscle use. HEART: Regular rate and rhythm, normal S1 and S2 without murmur, rub or gallop. ABDOMEN: Soft, nontender, not distended, normoactive bowel sounds, no guarding, no rebound, no masses. No hepatomegaly or splenomegaly. MUSCULOSKELETAL: Normal range of motion at all joints. No bony deformities or tenderness. No CVA tenderness. UPPER EXTREMITIES: 2+ pulses, warm, well-perfused. No cyanosis. No clubbing. No peripheral edema. LOWER EXTREMITIES: 2+ pulses, warm, well-perfused. No calf tenderness. No peripheral edema. NEUROLOGICAL: Cranial nerves II-XII intact. Normal speech. Normal gait. PSYCHIATRIC: Cooperative. Good eye contact. Appropriate mood and affect. SKIN: Warm, dry, normal turgor, no rashes or lesions noted, normal capillary refill. Laboratory Results - last 24 hr 06/06/18 06/06/18 06/06/18 14:50 14:50 14:50 WBC RBC Hgb Hct MCV MCH MCHC RDW Plt Count MPV Absolute Neuts (auto) Neutrophils % Lymphocytes % Monocytes % Eosinophils % Basophils % Nucleated RBC % PT with INR 11.20 INR 0.99 PTT (Actin FS) 30.0 Sodium 144 Potassium 3.8 Chloride 107 Carbon Dioxide 26 Anion Gap 11 BUN 23 H Creatinine 1.2 Creat Clearance w eGFR > 60 Random Glucose 139 H D Calcium 9.7 Magnesium 2.0 Total Bilirubin 0.5 AST 14 L ALT 36 Alkaline Phosphatase 113 Creatine Kinase 103 Troponin I < 0.02 B-Natriuretic Peptide Total Protein 6.7 Albumin 3.9 06/06/18 06/06/18 14:52 16:00 WBC 7.6 RBC 4.94 Hgb 14.7 Hct 42.4 MCV 85.8 MCH 29.7 MCHC 34.6 RDW 13.0 Plt Count 282 D MPV 8.3 Absolute Neuts (auto) 4.1 Neutrophils % 54.4 Lymphocytes % 30.2 Monocytes % 8.8 Eosinophils % 5.7 H Basophils % 0.9 Nucleated RBC % 0 PT with INR INR PTT (Actin FS) Sodium Potassium Chloride Carbon Dioxide Anion Gap BUN Creatinine Creat Clearance w eGFR Random Glucose Calcium Magnesium Total Bilirubin AST ALT Alkaline Phosphatase Creatine Kinase Troponin I B-Natriuretic Peptide 121.44 Total Protein Albumin ASSESSMENT/PLAN: Hospitalist Screening - Colonoscopy Questionnaire Colonoscopy Questionnaire: Colonoscopy Questionnaire
[2018-06-06] MEDS ORDERED: SODIUM CHLORIDE 250 ML IV STA (19:34)
[2018-06-06] MEDS ORDERED: SODIUM CHLORIDE 1,000 ML IV SCH (19:45)
[2018-06-06] MEDS ORDERED: INSULIN (LEVEMIR) 100 UNITS/ML UNITS SQ SCH (22:00)
[2018-06-06] MEDS: INSULIN SLIDING SCALE (NOVOLOG) 1 VIAL SQ SCH (22:26)
[2018-06-06] MEDS ORDERED: GABAPENTIN 100 MG CAPSULE (FP) ONE (22:28)
[2018-06-06] MEDS ORDERED: INSULIN (NOVOLOG) ASPART 100 UNITS/ML 10ML VIAL ONE (22:30)
[2018-06-06] MEDS ORDERED: INSULIN (LEVEMIR) 100 UNITS/ML UNITS SQ ONE (22:30)
--- NOTE | 2018-06-06 22:34 | HP ---
CHIEF COMPLAINT: CHEST PAIN PCP: Ari HISTORY OF PRESENT ILLNESS: This is a 53 year old male with a significant past medical history of ID x 6 s/ p multiple stentis, HTN, HLD, DM who presented to the ED with an episode of chest pain while mowing the lawn. He reports that he was feeling fine prior to mowing the lawn. He states that the pain is now resolved and denies any SOB. He described the pain as "ripping" to the ED staff. ER course was notable for: (1) Troponin neg x 1 (2) no acute ECG changes (3) CTA neg for PE and aortic dissection/aneurysm Recent Travel: pt denies PAST MEDICAL HISTORY: ID, CAD, HTN, HLD, ADRI, DM, peripheral neuropathy, Bladder CA, Prostate CA, arthritis PAST SURGICAL HISTORY: cardiac stents, most recent 03/22/18 umbilical hernia repair appendectomy rotator cuff x 2 Social History: Smokin cig/day Alcohol: Monday nights, 9 beverages/shots Drugs: Marijuana on Monday Family History: father and brother with heart disease Allergies Penicillins Adverse Reaction (Verified 06/06/18 14:29) HOME MEDICATIONS: 3 Medication Instructions Recorded Atorvastatin Ca [Lipitor] 80 mg PO HS 09/25/17 Duloxetine HCl [Cymbalta -] 60 mg PO DAILY 09/25/17 Insulin (Novolog 70/30) [Novolog 34 units SQ BIDAC 09/25/17 Mix 70/30 Flexpen -] Naproxen [Naprosyn -] 500 mg PO HS PRN 09/25/17 Sitagliptin Phosphate [Januvia] 100 mg PO DAILY 04/24/18 Amlodipine Besylate [Norvasc -] 10 mg PO DAILY tablet 04/25/18 Aspirin [ASA -] 81 mg PO DAILY tab.chew 04/25/18 Clopidogrel Bisulfate [Plavix -] 75 mg PO DAILY tablet 04/25/18 Furosemide [Lasix -] 40 mg PO DAILY tablet 04/25/18 Gabapentin [Neurontin -] 600 mg PO TID capsule 04/25/18 Lisinopril [Prinivil] 40 mg PO DAILY tablet 04/25/18 Metoprolol Tartrate [Lopressor -] 25 mg PO DAILY tablet 04/25/18 hydrALAZINE HCL [Apresoline -] 25 mg PO BID tablet 04/25/18 Metoprolol Tartrate [Lopressor -] 25 mg PO BID 06/06/18 REVIEW OF SYSTEMS CONSTITUTIONAL: Absent: fever, chills, diaphoresis, generalized weakness, malaise, loss of appetite, weight change HEENT: Absent: rhinorrhea, nasal congestion, throat pain, throat swelling, difficulty swallowing, mouth swelling, ear pain, eye pain, visual changes CARDIOVASCULAR: Present: chest pain Absent: syncope, palpitations, irregular heart rate, lightheadedness, peripheral edema RESPIRATORY: Absent: cough, shortness of breath, dyspnea with exertion, orthopnea, wheezing, stridor, hemoptysis GASTROINTESTINAL: Absent: abdominal pain, abdominal distension, nausea, vomiting, diarrhea, constipation, melena, hematochezia GENITOURINARY: Absent: dysuria, frequency, urgency, hesitancy, hematuria, flank pain, genital pain MUSCULOSKELETAL: Absent: myalgia, arthralgia, joint swelling, back pain, neck pain SKIN: Absent: rash, itching, pallor HEMATOLOGIC/IMMUNOLOGIC: Absent: easy bleeding, easy bruising, lymphadenopathy, frequent infections ENDOCRINE: Absent: unexplained weight gain, unexplained weight loss, heat intolerance, cold intolerance NEUROLOGIC: Absent: headache, focal weakness or paresthesias, dizziness, unsteady gait, seizure, mental status changes, bladder or bowel incontinence PSYCHIATRIC: Absent: anxiety, depression, suicidal or homicidal ideation, hallucinations. PHYSICAL EXAMINATION Vital Signs - 24 hr 3 06/06/18 06/06/18 14:30 15:38 Temperature 98.7 F 98.1 F Pulse Rate 93 H 67 Pulse Rate [ 68 Left Apical] Respiratory 20 16 Rate Blood Pressure 110/66 Blood Pressure 111/72 [Right Arm] O2 Sat by Pulse 95 95 Oximetry (%) GENERAL: Awake, alert, and fully oriented, in no acute distress. HEAD: Normal with no signs of trauma. EYES: Pupils equal, round and reactive to light, extraocular movements intact, sclera anicteric, conjunctiva clear. No lid lag. EARS, NOSE, THROAT: Ears normal, nares patent, oropharynx clear without exudates. Moist mucous membranes. NECK: Normal range of motion, supple without lymphadenopathy, JVD, or masses. LUNGS: Breath sounds equal, clear to auscultation bilaterally. No wheezes, and no crackles. No accessory muscle use. HEART: Regular rate and rhythm, normal S1 and S2 without murmur, rub or gallop. ABDOMEN: Soft, nontender, not distended, normoactive bowel sounds, no guarding, no rebound, no masses. No hepatomegaly or splenomegaly. MUSCULOSKELETAL: Normal range of motion at all joints. No bony deformities or tenderness. No CVA tenderness. UPPER EXTREMITIES: 2+ pulses, warm, well-perfused. No cyanosis. No clubbing. No peripheral edema. LOWER EXTREMITIES: 2+ pulses, warm, well-perfused. No calf tenderness. No peripheral edema. NEUROLOGICAL: Cranial nerves II-XII intact. Normal speech. Normal gait. PSYCHIATRIC: Cooperative. Good eye contact. Appropriate mood and affect. SKIN: Warm, dry, normal turgor, no rashes or lesions noted, normal capillary refill. Laboratory Results - last 24 hr 3 06/06/18 06/06/18 06/06/18 14:50 14:50 14:50 WBC RBC Hgb Hct MCV MCH MCHC RDW Plt Count MPV Absolute Neuts (auto) Neutrophils % Lymphocytes % Monocytes % Eosinophils % Basophils % Nucleated RBC % PT with INR 11.20 INR 0.99 PTT (Actin FS) 30.0 Sodium 144 Potassium 3.8 Chloride 107 Carbon Dioxide 26 Anion Gap 11 BUN 23 H Creatinine 1.2 Creat Clearance w eGFR > 60 Random Glucose 139 H D Calcium 9.7 Magnesium 2.0 Total Bilirubin 0.5 AST 14 L ALT 36 Alkaline Phosphatase 113 Creatine Kinase 103 Troponin I < 0.02 B-Natriuretic Peptide Total Protein 6.7 Albumin 3.9 3 06/06/18 06/06/18 06/06/18 14:52 16:00 21:08 WBC 7.6 RBC 4.94 Hgb 14.7 Hct 42.4 MCV 85.8 MCH 29.7 MCHC 34.6 RDW 13.0 Plt Count 282 D MPV 8.3 Absolute Neuts (auto) 4.1 Neutrophils % 54.4 Lymphocytes % 30.2 Monocytes % 8.8 Eosinophils % 5.7 H Basophils % 0.9 Nucleated RBC % 0 PT with INR INR PTT (Actin FS) Sodium Potassium Chloride Carbon Dioxide Anion Gap BUN Creatinine Creat Clearance w eGFR Random Glucose Calcium Magnesium Total Bilirubin AST ALT Alkaline Phosphatase Creatine Kinase Troponin I 0.32 H D B-Natriuretic Peptide 121.44 Total Protein Albumin ECG Normal sinus rhythm vent rate 88, QTC [address]/T wave changes Radiology Reports CXR portable Since 04/24/2018, there is no significant change. An acute process is not seen. There is a weak inspiration, prominent mediastinum, clear lungs, sharp angles and degenerative changes. There is evidence of previous right shoulder surgery. Correlation recommended. Reported By: Frandy Hunt MD 06/06/18 1722 CTA chest/abd/pel IMPRESSION: 1. No evidence of thoracic or abdominal aortic aneurysm or dissection. 2. No acute pathology within the chest, abdomen or pelvis. Reported By: Marcos Roberts MD 06/06/18 [id number] ADDENDUM: Supplemental multiplanar projection images were obtained for evaluation of possible pulmonary embolism. There is no CT evidence of pulmonary embolism. CT head IMPRESSION: No CT evidence of acute intracranial pathology. Reported By: Marcos Roberts MD 06/06/18 1909 ASSESSMENT/PLAN: 53yM with PMH ID, CAD, HTN, HLD, DM, peripheral neuropathy, Bladder CA ( recurrent), proatate CA, arthritis, ADRI presented to the ED with chest pain while mowing his lawn. Chest pain r/o ACS - trop 0.04-->0.32. DW cardiology, start heparin - cont home plavix, ASA, lipitor, metoprolol - cardiology consult appreciated HTN/HLD - cont home meds. Monitor BP closely DM - will cut home insulin in half given NPO status after MN - monitor BGM AC/HS DVT PPX - on heparin drip FEN - tolerating po fluids - BMP in am - NPO after MN Dispo: pt currently requires further observation. Visit type - Emergency Visit Emergency Visit: Yes ED Registration Date: 06/06/18 Care time: The patient presented to the Emergency Department on the above date and was hospitalized for further evaluation of their emergent condition. - New Patient This patient is new to me today: Yes Date on this admission: 06/06/18 - Critical Care Critical Care patient: No Hospitalist Screening - Colonoscopy Questionnaire Colonoscopy Questionnaire: Colonoscopy Questionnaire - Patient: 50 - 75 years old and never had a screening colonoscopy: Yes History of colon or rectal polyps, or CA: No History of IBD, Crohn's disease or UC: No History of abdominal radiation therapy as a child: No - Relative: 1 with colon or rectal CA, or polyps at age 60 or younger: No Colon or rectal CA diagnosed at age 45 or younger: No Multiple relatives with colon or rectal CA: No - Outcome: Screening Result: Positive Screen
[2018-06-06] MEDS: HEPARIN NA (PORCINE) 5,000 UNITS/ML 1ML VIAL SQ SCH (22:35)
[2018-06-06] MEDS: GABAPENTIN 300 MG CAPSULE (FP) PO SCH (22:35)
[2018-06-06] MEDS: hydrALAZINE HCL 25 MG TABLET (FP) PO SCH (23:14)
[2018-06-06] MEDS ORDERED: HEPARIN NA (PORCINE) 5,000 UNITS/ML 1ML VIAL IVPUSH PRN ×2 (23:37)
[2018-06-07] MEDS: HEPARIN SOD,PORK IN 0.45% NACL 25,000 UNITS/500 ML INFUS.BAG IVPB SCH ×2 (00:21→23:30)
[2018-06-07] MEDS ORDERED: HEPARIN INFUSION - 25,000 UNITS/500 ML INFUS.BAG IVPB ONE (00:30)
[2018-06-07] MEDS ORDERED: hydrALAZINE HCL 25 MG TABLET (FP) ONE (01:03)
[2018-06-07] MEDS: HEPARIN NA (PORCINE) 5,000 UNITS/ML 1ML VIAL SQ SCH (06:05)
[2018-06-07] MEDS: GABAPENTIN 300 MG CAPSULE (FP) PO SCH ×3 (06:05→21:52)
[2018-06-07] MEDS ORDERED: INSULIN (NOVOLOG MIX 70/30) 100 UNITS/ML MDV SQ SCH ×2 (07:00)
[2018-06-07 07:10] LABS: EOS % 5.7 % (0-4.5); HEMATOCRIT 40.2 % (35.4-49); HEMOGLOBIN 13.3 GM/dL (11.7-16.9); LYMPH % 41.1 % (8-40); MCH 28.7 pg (25.7-33.7); MEAN CELL VOLUME 86.9 fl (80-96); MEAN PLT VOLUME 8.2 fl (7.5-11.1); MONO % 8.1 % (3.8-10.2); NEUT % 44.1 % (42.8-82.8); PLATELET COUNT 227 K/MM3 (134-434); RBC 4.63 M/mm3 (4.00-5.60); RDW 12.8 % (11.9-15.9); WHITE BLOOD COUNT 7.5 K/mm3 (4.0-10.0)
[2018-06-07] MEDS ORDERED: HEMOQUE TEST 1 EACH EACH ONE ×2 (07:34→08:35)
[2018-06-07 07:41] LABS: CHLORIDE 108 mmol/L (98-107); POTASSIUM 3.7 mmol/L (3.5-5.1); SODIUM 145 mmol/L (136-145)
[2018-06-07 07:54] LABS: ALBUMIN 3.5 g/dl (3.4-5.0); ALK PHOS 105 U/L (45-117); ANION GAP 9 MMOL/L (8-16); BILIRUBIN,TOTAL 0.4 mg/dL (0.2-1.0); BLOOD UREA NITROGEN 26 mg/dL (7-18); CALCIUM 8.9 mg/dL (8.5-10.1); CO2 28 mmol/L (21-32); GLUCOSE,RANDOM 144 mg/dL (74-106); MAGNESIUM 2.2 mg/dL (1.8-2.4); SGOT/AST 16 U/L (15-37); SGPT/ALT 35 U/L (13-61)
[2018-06-07] MEDS: INSULIN (NOVOLOG MIX 70/30) 100 UNITS/ML MDV SQ SCH ×2 (08:30→18:16)
[2018-06-07] MEDS: INSULIN SLIDING SCALE (NOVOLOG) 1 VIAL SQ SCH ×4 (08:30→21:42)
[2018-06-07] MEDS ORDERED: INSULIN (NOVOLOG MIX 70/30) 100 UNITS/ML MDV SQ ONE ×2 (08:43→18:14)
[2018-06-07] MEDS: DULoxetine HCL 30 MG CAPSULE.DR (FP) PO SCH (09:00)
[2018-06-07] MEDS: hydrALAZINE HCL 25 MG TABLET (FP) PO SCH (09:00)
[2018-06-07] MEDS: ASPIRIN 81 MG CHEWABLE TABLETS PO SCH (09:00)
[2018-06-07] MEDS: METOPROLOL TARTRATE 25 MG TABLET (FP) PO SCH ×2 (09:00→21:52)
[2018-06-07] MEDS: CLOPIDOGREL BISULFATE 75 MG TABLET (FP) PO SCH (09:00)
[2018-06-07] MEDS: ATORVASTATIN CA 80 MG TABLET (FP) PO SCH ×2 (09:00→21:52)
[2018-06-07] MEDS: amLODIPine BESYLATE 10 MG TABLET (FP) PO SCH (09:00)
[2018-06-07] MEDS: LISINOPRIL 20 MG TABLET (FP) PO SCH (09:00)
[2018-06-07] MEDS ORDERED: FUROSEMIDE 40 MG TABLET (FP) PO SCH (10:00)
[2018-06-07] MEDS ORDERED: METOPROLOL TARTRATE 25 MG TABLET (FP) PO SCH (10:00)
--- NOTE | 2018-06-07 11:26 | PN ---
Progress Note, Physician Chief Complaint: patient sitting in bed no distress no more CP NPO for now awaiting cardiology to see if he needs transfer for cath on iv heparin drip echo and carotid doppler ordered - Current Medication List Current Medications: Active Medications Amlodipine Besylate (Norvasc -) 10 mg PO DAILY [facility], [facility] Last Admin: 06/07/18 09:00 Dose: 10 mg Aspirin (Asa -) 81 mg PO DAILY [facility] Last Admin: 06/07/18 09:00 Dose: 81 mg Atorvastatin Calcium (Lipitor -) 80 mg PO HS [facility] Last Admin: 06/07/18 09:00 Dose: 80 mg Clopidogrel Bisulfate (Plavix -) 75 mg PO DAILY [facility] Last Admin: 06/07/18 09:00 Dose: 75 mg Duloxetine HCl (Cymbalta -) 60 mg PO DAILY [facility] Last Admin: 06/07/18 09:00 Dose: 60 mg Gabapentin (Neurontin -) 600 mg PO TID [facility] Last Admin: 06/07/18 06:05 Dose: 600 mg Heparin Sodium (Porcine) (Heparin -) 1,000 unit IVPUSH PRN PRN PRN Reason: Heparin Heparin Sodium (Porcine) (Heparin -) 5,000 unit IVPUSH PRN PRN PRN Reason: Heparin Hydralazine HCl (Apresoline -) 25 mg PO BID [facility] Last Admin: 06/07/18 09:00 Dose: 25 mg HEPARIN SOD,PORK IN 0.45% NACL (Heparin-1/2ns 25,000 Units/500) 25,000 units in 500 mls @ 20 mls/hr IVPB TITR [facility], [facility]; Protocol Last Titration: 06/07/18 08:35 Dose: 1,150 units/hr, 23 mls/hr Insulin Aspart (Novolog Vial Sliding Scale -) 1 vial SQ ACHS [facility], [facility]; Protocol Last Admin: 06/07/18 08:30 Dose: Not Given Insulin Aspart (Novolog Mix 70/30 Vial) 17 units SQ BIDAC [facility] Last Admin: 06/07/18 08:30 Dose: 17 units Lisinopril (Prinivil) 40 mg PO DAILY [facility] Last Admin: 06/07/18 09:00 Dose: 40 mg Metoprolol Tartrate (Lopressor -) 25 mg PO BID [facility] Last Admin: 06/07/18 09:00 Dose: 25 mg - Objective Vital Signs: Vital Signs Temperature 97.8 F 06/07/18 06:42 Pulse Rate 65 06/07/18 06:42 Respiratory Rate 18 06/07/18 06:42 Blood Pressure 136/71 06/07/18 06:42 O2 Sat by Pulse Oximetry (%) 98 06/07/18 06:42 Constitutional: Yes: Calm Cardiovascular: Yes: Regular Rate and Rhythm, S1, S2 Respiratory: Yes: CTA Bilaterally Gastrointestinal: Yes: Normal Bowel Sounds, Soft Edema: No Neurological: Yes: Alert, Oriented Labs: CBC, BMP 06/07/18 06:50 06/07/18 06:50 INR, PTT INR 0.99 (0.83-1.09) 06/06/18 14:50 Problem List - Problems (1) Chest pain Assessment/Plan: iv heparin drip troponin 0.32 ,0.25- third set ordered asprin statin- lipid profile lisinopril and metoprolol Code(s): R07.9 - CHEST PAIN, UNSPECIFIED (2) Diabetes mellitus Assessment/Plan: insulin sliding scale Code(s): E11.9 - TYPE 2 DIABETES MELLITUS WITHOUT COMPLICATIONS Qualifiers: Diabetes mellitus type: type 2 (3) Diabetic neuropathy Assessment/Plan: gabapentin Code(s): E11.40 - TYPE 2 DIABETES MELLITUS WITH DIABETIC NEUROPATHY, UNSP
--- NOTE | 2018-06-07 14:16 | CON.CARD ---
Consult Consult Specialty:: Cardiology Referred by:: Dr. Chapman Reason for Consultation:: NSTEMI - History of Present Illness Chief Complaint: Chest pain History of Present Illness: 53 year old man with a PMHx of CAD, [place] s/p s/p multiple stents (LCx-OM stents 12/31/2014 and mid to distal RCA stentsx3 03/22/2018), HTN, DM, HLD, peripheral neuropathy, prostate cancer, arthritis, sleep apnea, hernia presented to the hospital 06/06/2018 with syncope and severe chest pain after mowing the lawn. Chest pain persistent for 6-7 hours. No acute ECG changes of ischemia. Ruled in for NSTEMI. CT chest and abdomen with contrast 06/06/2018 ruled out for aneurysm and dissection. He has been on IV heparin without recurrent chest pain. 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 History of Recent Travel: No Home Medications - Allergies Allergies/Adverse Reactions: Allergies Allergy/AdvReac Type Severity Reaction Status Date / Time Penicillins AdvReac Verified 06/06/18 14:29 - Home Medications Home Medications: Ambulatory Orders Atorvastatin Ca [Lipitor] 80 mg PO HS 09/25/17 Duloxetine HCl [Cymbalta -] 60 mg PO DAILY 09/25/17 Insulin (Novolog 70/30) [Novolog Mix 70/30 Flexpen -] 34 units SQ BIDAC Naproxen [Naprosyn -] 500 mg PO HS PRN 09/25/17 Sitagliptin Phosphate [Januvia] 100 mg PO DAILY 04/24/18 Amlodipine Besylate [Norvasc -] 10 mg PO DAILY tablet 04/25/18 Aspirin [ASA -] 81 mg PO DAILY tab.chew 04/25/18 Clopidogrel Bisulfate [Plavix -] 75 mg PO DAILY tablet 04/25/18 Furosemide [Lasix -] 40 mg PO DAILY tablet 04/25/18 Gabapentin [Neurontin -] 600 mg PO TID capsule 04/25/18 Lisinopril [Prinivil] 40 mg PO DAILY tablet 04/25/18 Metoprolol Tartrate [Lopressor -] 25 mg PO DAILY tablet 04/25/18 hydrALAZINE HCL [Apresoline -] 25 mg PO BID tablet 04/25/18 Metoprolol Tartrate [Lopressor -] 25 mg PO BID 06/06/18 Family Disease History - Family Disease History Family Disease History: Heart Disease: Father, Brother (CABG, CHF) Review of Systems - Review of Systems Constitutional: reports: No Symptoms Eyes: reports: No Symptoms HENT: reports: No Symptoms Neck: reports: No Symptoms Cardiovascular: reports: Chest Pain Respiratory: reports: SOB Genitourinary: reports: No Symptoms Breasts: reports: No Symptoms Reported Musculoskeletal: reports: No Symptoms Integumentary: reports: No Symptoms Neurological: reports: Syncope Endocrine: reports: No Symptoms Hematology/Lymphatic: reports: No Symptoms Psychiatric: reports: No Symptoms Vital Signs: Vital Signs Temperature 98.0 F 06/07/18 11:57 Pulse Rate 54 L 06/07/18 11:57 Respiratory Rate 18 06/07/18 11:57 Blood Pressure 116/64 06/07/18 11:57 O2 Sat by Pulse Oximetry (%) 98 06/07/18 06:42 General: Well developed. Obese. No acute distress. Head: Normocephalic. Atraumatic, Eyes: PERRLA, EOMI. Sclerae anicteric. Conjunctivae clear. Neck: Supple. No JVD. No bruits. Heart: Normal S1, S2: Regularly regular rhythm and rate. No murmur. No gallop or rub. Lungs: Symmetrical air entry. Clear to auscultation. No crackle. No wheezing or rhonchi. Abdomen: Soft. Bowel sound positive. Non tender. No masses. Extremities: No edema. No clubbing or cyanosis. PD 2+, equal bilaterally. Neuro: Intact, no focal findings. AAO X3. - Other Data Labs, Other Data: CBC, BMP 06/07/18 06:50 06/07/18 06:50 INR, PTT INR 0.99 (0.83-1.09) 06/06/18 14:50 Troponin, BNP 06/06/18 06/06/18 06/06/18 14:50 16:00 21:08 Troponin I < 0.02 0.32 H D B-Natriuretic Peptide 121.44 06/07/18 06/07/18 06/07/18 06:50 06:50 12:40 Troponin I 0.25 H 0.15 H D B-Natriuretic Peptide 100.80 Troponin, BNP 06/06/18 06/06/18 06/06/18 14:50 16:00 21:08 Troponin I < 0.02 0.32 H D B-Natriuretic Peptide 121.44 06/07/18 06/07/18 06/07/18 06:50 06:50 12:40 Troponin I 0.25 H 0.15 H D B-Natriuretic Peptide 100.80 Assessment/Plan 53 year old man with a PMHx of CAD, [place] s/p s/p multiple stents (LCx-OM stents 12/31/2014 and mid to distal RCA stentsx3 03/22/2018), HTN, DM, HLD, peripheral neuropathy, prostate cancer, arthritis, sleep apnea, hernia presented to the hospital 06/06/2018 with syncope and severe chest pain after mowing the lawn. Chest pain persistent for 6-7 hours. No acute ECG changes of ischemia. Ruled in for NSTEMI. CT chest and abdomen with contrast 06/06/2018 ruled out for aneurysm and dissection. He has been on IV heparin without recurrent chest pain. 1) CAD s/p multiple PCI/stents, recurrent angina with evidence of NSTEMI: Cardiac cath with possible PCI is scheduled for tomorrow at [facility]. NPO after midnight. Continue IV heparin. Continue aspirin and Plavix. Continue metoprolol and atorvastatin. 2) HTN: BP is relatively low with mild bradycardia. Continue metoprolol, lisinopril and amlodipine. D/C hydralazine.
--- NOTE | 2018-06-07 14:47 | ECHO ---
Name: UDAY MONTALVO Exam:Adult Echocardiogram Study Date: 06/07/2018 08:51 AM Age: 53 yrs Reason For Study: CHEST PAIN SYNCOPE Height: 70 in Weight: 255 lb BSA: 2.3 m2 MMode/2D Measurements & Calculations IVSd: 1.0 cm Ao root diam: 3.2 cm LVIDd: 5.5 cm LA dimension: 4.0 cm LVIDs: 4.0 cm LVPWd: 0.99 cm EDV(Teich): 149.7 ml ESV(Teich): 69.8 ml Doppler Measurements & Calculations MV E max jayesh: 70.6 cm/sec Med Peak E' Jayesh: 13.9 cm/sec MV A max jayesh: 67.6 cm/sec Med E/e': 5.1 MV E/A: 1.0 Lat Peak E' Jayesh: 12.0 cm/sec MV dec time: 0.15 sec Lat E/e': 5.9 Procedure A complete two-dimensional transthoracic echocardiogram was performed (2D, M-mode, Doppler and color flow Doppler). The study was technically difficult with many images being suboptimal in quality. Left Ventricle The left ventricular size, thickness and function are normal. Ejection Fraction = 60-65%. Left Ventri cular Filling pattern is normal for age. Regional wall motion abnormalities cannot be excluded due to limit ed visualization. Right Ventricle The right ventricle is grossly normal size. The right ventricular systolic function is grossly normal . Atria Normal left and right atrial size and function. Mitral Valve There is no mitral regurgitation noted. Tricuspid Valve There was insufficient TR detected to calculate RV systolic pressure. There is trace tricuspid regurg itation. Aortic Valve No hemodynamically significant valvular aortic stenosis. No aortic regurgitation is present. Pulmonic Valve There is no pulmonic valvular regurgitation. Great Vessels The aortic root is normal size. Pericardium/Pleura There is no pericardial effusion. Interpretation Summary The study was technically difficult . The left ventricular size, thickness and function are normal. The right ventricle is grossly normal size. The right ventricular systolic function is grossly normal. There is trace tricuspid regurgitation. MD Markos Saleem 06/07/2018 02:47 PM
--- NOTE | 2018-06-07 15:36 | EKG ---
Test Reason : Blood Pressure : / mmHG Vent. Rate : 056 BPM Atrial Rate : 056 BPM P-R Int : 174 ms QRS Dur : 090 ms QT Int : 450 ms P-R-T Axes : 020 -04 064 degrees QTc Int : 434 ms SINUS BRADYCARDIA OTHERWISE NORMAL ECG WHEN COMPARED WITH ECG OF 06-JUN-2018 14:31, VENT. RATE HAS DECREASED BY 32 BPM Confirmed by MARIE DIAZ MD ([id number]) on 06/07/2018 3:36:01 PM Referred By: CHAVEZ MILLS Confirmed By:MARIE DIAZ MD
[2018-06-07] MEDS ORDERED: GABAPENTIN 100 MG CAPSULE (FP) ONE (15:42)
[2018-06-07] MEDS ORDERED: INSULIN REGULAR HUMAN 100 UNITS/ML *VIAL ONE (18:14)
[2018-06-07] MEDS ORDERED: oxyCODONE HCL 5 MG TABLET PO ONE ×2 (21:41→22:00)
[2018-06-07] MEDS ORDERED: ACETAMINOPHEN 325 MG TABLET (FP) PO ONE ×2 (22:00)
[2018-06-08] MEDS: INSULIN (NOVOLOG MIX 70/30) 100 UNITS/ML MDV SQ SCH (06:18)
[2018-06-08] MEDS: GABAPENTIN 300 MG CAPSULE (FP) PO SCH (06:18)
[2018-06-08] MEDS: INSULIN SLIDING SCALE (NOVOLOG) 1 VIAL SQ SCH (06:19)
[2018-06-08 07:03] LABS: BASO % 0.8 % (0-2.0); EOS % 5.4 % (0-4.5); HEMOGLOBIN 13.5 GM/dL (11.7-16.9); LYMPH % 40.8 % (8-40); MCH 29.3 pg (25.7-33.7); MCHC 33.7 g/dl (32.0-35.9); MEAN CELL VOLUME 86.8 fl (80-96); MEAN PLT VOLUME 8.3 fl (7.5-11.1); MONO % 8.3 % (3.8-10.2); NEUT % 44.7 % (42.8-82.8); PLATELET COUNT 238 K/MM3 (134-434); RDW 12.8 % (11.9-15.9); WHITE BLOOD COUNT 7.7 K/mm3 (4.0-10.0)
[2018-06-08 07:31] LABS: ALBUMIN 3.6 g/dl (3.4-5.0); ANION GAP 8 MMOL/L (8-16); BILIRUBIN,TOTAL 0.3 mg/dL (0.2-1.0); BLOOD UREA NITROGEN 24 mg/dL (7-18); CALCIUM 8.6 mg/dL (8.5-10.1); CHLORIDE 109 mmol/L (98-107); CO2 29 mmol/L (21-32); CREATININE 0.9 mg/dL (0.55-1.3); GLUCOSE,RANDOM 135 mg/dL (74-106); POTASSIUM 4.1 mmol/L (3.5-5.1); SGOT/AST 16 U/L (15-37); SGPT/ALT 39 U/L (13-61); SODIUM 146 mmol/L (136-145); TOT PROT 6.3 g/dl (6.4-8.2)
[2018-06-08 07:32] LABS: ALK PHOS 110 U/L (45-117)
--- NOTE | 2018-06-08 08:22 | PN ---
Progress Note, Physician - Current Medication List Current Medications: Active Medications Amlodipine Besylate (Norvasc -) 10 mg PO DAILY [facility] Last Admin: 06/07/18 09:00 Dose: 10 mg Aspirin (Asa -) 81 mg PO DAILY [facility] Last Admin: 06/07/18 09:00 Dose: 81 mg Atorvastatin Calcium (Lipitor -) 80 mg PO HS [facility] Last Admin: 06/07/18 21:52 Dose: 80 mg Clopidogrel Bisulfate (Plavix -) 75 mg PO DAILY [facility] Last Admin: 06/07/18 09:00 Dose: 75 mg Duloxetine HCl (Cymbalta -) 60 mg PO DAILY [facility] Last Admin: 06/07/18 09:00 Dose: 60 mg Gabapentin (Neurontin -) 600 mg PO TID [facility] Last Admin: 06/08/18 06:18 Dose: Not Given Heparin Sodium (Porcine) (Heparin -) 1,000 unit IVPUSH PRN PRN PRN Reason: Heparin Heparin Sodium (Porcine) (Heparin -) 5,000 unit IVPUSH PRN PRN PRN Reason: Heparin HEPARIN SOD,PORK IN 0.45% NACL (Heparin-1/2ns 25,000 Units/500) 25,000 units in 500 mls @ 20 mls/hr IVPB TITR [facility]; Protocol Last Admin: 06/07/18 23:30 Dose: 1,150 units/hr, 23 mls/hr Insulin Aspart (Novolog Vial Sliding Scale -) 1 vial SQ ACHS [facility]; Protocol Last Admin: 06/08/18 06:19 Dose: Not Given Insulin Aspart (Novolog Mix 70/30 Vial) 17 units SQ BIDAC [facility] Last Admin: 06/08/18 06:18 Dose: Not Given Lisinopril (Prinivil) 40 mg PO DAILY [facility] Last Admin: 06/07/18 09:00 Dose: 40 mg Metoprolol Tartrate (Lopressor -) 25 mg PO BID [facility] Last Admin: 06/07/18 21:52 Dose: 25 mg - Objective Vital Signs: Vital Signs Temperature 97.9 F 06/08/18 06:00 Pulse Rate 64 06/08/18 06:00 Respiratory Rate 18 06/08/18 06:00 Blood Pressure 120/83 06/08/18 06:00 O2 Sat by Pulse Oximetry (%) 95 06/08/18 00:00 Labs: CBC, BMP 06/08/18 05:45 06/08/18 05:45 INR, PTT INR 0.99 (0.83-1.09) 06/06/18 14:50
[2018-06-08 08:34] VITALS: BP 144/83; PULSE 62; TEMP 98.4
[2018-06-08] MEDS: LISINOPRIL 20 MG TABLET (FP) PO SCH (09:21)
[2018-06-08] MEDS: ASPIRIN 81 MG CHEWABLE TABLETS PO SCH (09:21)
[2018-06-08] MEDS: DULoxetine HCL 30 MG CAPSULE.DR (FP) PO SCH (09:21)
[2018-06-08] MEDS: CLOPIDOGREL BISULFATE 75 MG TABLET (FP) PO SCH (09:21)
[2018-06-08] MEDS: METOPROLOL TARTRATE 25 MG TABLET (FP) PO SCH (09:21)
[2018-06-08] MEDS: amLODIPine BESYLATE 10 MG TABLET (FP) PO SCH (09:21)
== END 2018-06-08 09:46 | disposition short-term general hospital (02) ==
LOC: JER 14:26 → JERBED 19:59 → J4W 06-07 19:03
PROVIDERS: ADMIT Internal Medicine; ATTEND Family Medicine
PROC: 3E033GC Introduction of Other Therapeutic Substance into Peripheral Vein, Percutaneous Approach (ICD-10-PCS; principal; 2018-06-06)
PROC: 3E0337Z Introduction of Electrolytic and Water Balance Substance into Peripheral Vein, Percutaneous Approach (ICD-10-PCS; 2018-06-06)
DX: I10 Essential (primary) hypertension (principal); I25.2 Old myocardial infarction; E11.40 Type 2 diabetes mellitus with diabetic neuropathy, unspecified; M19.90 Unspecified osteoarthritis, unspecified site; G47.30 Sleep apnea, unspecified; C67.9 Malignant neoplasm of bladder, unspecified; F03.90 Unspecified dementia, unspecified severity, without behavioral disturbance, psychotic disturbance, mood disturbance, and anxiety; F17.210 Nicotine dependence, cigarettes, uncomplicated; Z79.01 Long term (current) use of anticoagulants; Z79.4 Long term (current) use of insulin; Z79.82 Long term (current) use of aspirin; Z88.0 Allergy status to penicillin; Z95.5 Presence of coronary angioplasty implant and graft; Z85.46 Personal history of malignant neoplasm of prostate
CPT/HCPCS: 36415; 70450-TC; 71045-TC-FY; 71275-TC; 74174-TC; 80053; 80061; 82550; 82553; 82962; 83721; 83735; 83880; 84484; 85025; 85610; 85730; 86850; 86900; 86901; 93005; 93010; 93306-TC; 93880-TC; 96361; 96374; 96376; 99285-25; G0378; J1644

== ENCOUNTER 2018-07-29 14:15 | Observation (INO) | payer OTHER ==
[2018-07-29 14:20] VITALS: BMI 37.3
[2018-07-29] MEDS ORDERED: ACETAMINOPHEN 325 MG TABLET (FP) PO ONE (15:19)
[2018-07-29] MEDS ORDERED: SODIUM CHLORIDE 1,000 ML IV STA (15:19)
--- NOTE | 2018-07-29 15:21 | PDOC ---
History of Present Illness - General History Source: Patient Exam Limitations: No Limitations - History of Present Illness Initial Comments: 07/29/18 18:24 The patient is a 53 year old male, with a significant PMH of CAD, [place] s/p multiple stents (LCx-OM stents 12/31/2014 and mid to distal RCA stents x3 2017), TIA, HTN, IDDM, HDL, peripheral neuropathy, arthritis, sleep apnea, hernia syncope, prostate and bladder cancer who presents to the emergency department with hematuria and penile pruritus that began approximately 2-3 days ago that has progressively worsened today. The patient states he endorses associated symptoms of intermittent pressure like chest pain located to the mid sternum that is nonradiating and nonexertional , SOB, x 1 week total, no f/ c. The patient mentions he was suppose to have bladder surgery on 07/25/2018 but decided not to go because he is afraid of surgery. He is currently not on any treatment for the bladder and prostate cancer. The patient denies headache and dizziness. Denies fever, nausea, vomit, diarrhea and constipation. Denies dysuria, frequency, and urgency. Allergies: Penicillin Past surgical history: Repair Umbilical hernia, appendectomy, rotator cuff Social history: Admits to smoking cigarettes and marijuana. Denies alcohol use PCP: Dr. Chapman Urologist: Dr. Ford Agricultural Chemist: Dr. Herrera <Azalea Montero - Last Filed: 07/29/18 18:42> <Aditi Arguello - Last Filed: 07/29/18 20:41> - General History Source: Patient Exam Limitations: No Limitations <Esperanza Landers - Last Filed: 07/31/18 10:09> - General Chief Complaint: Urinary Problem Stated Complaint: BLOOD IN URINE Time Seen by Provider: 07/29/18 15:19 Past History <Azalea Montero - Last Filed: 07/29/18 18:42> <Aditi Arguello - Last Filed: 07/29/18 20:41> - Past Medical History Anemia: No Asthma: No Cancer: Yes (bladder multiple times and at present time) Cardiac Disorders: Yes (AZ with cardiac stents) COPD: No Dementia: Yes Diabetes: Yes (IDDM) HTN: Yes Hypercholesterolemia: Yes Seizures: No - Surgical History Abdominal Surgery: Yes (REPAIR UMBILICAL HERNIA) Appendectomy: Yes Neurologic Surgery: No Orthopedic Surgery: (rotator cuff) - Immunization History Immunization Up to Date: Yes - Suicide/Smoking/Psychosocial Hx Smoking History: Current some day smoker Have you smoked in the past 12 months: Yes Number of Cigarettes Smoked Daily: 2 If you are a former smoker, when did you quit?: 2012 Information on smoking cessation initiated: No 'Breaking Loose' booklet given: 06/07/18 Hx Alcohol Use: No Drug/Substance Use Hx: No Substance Use Type: None Hx Substance Use Treatment: No <LandersEsperanzatani Gordillosayra - Last Filed: 07/31/18 10:09> - Past Medical History Allergies/Adverse Reactions: Allergies Allergy/AdvReac Type Severity Reaction Status Date / Time Penicillins AdvReac Verified 07/29/18 14:20 Home Medications: Ambulatory Orders Atorvastatin Ca [Lipitor] 80 mg PO HS 09/25/17 Duloxetine HCl [Cymbalta -] 30 mg PO DAILY 09/25/17 Insulin (Novolog 70/30) [Novolog Mix 70/30 Flexpen -] 34 units SQ BIDAC Naproxen [Naprosyn -] 500 mg PO HS PRN 09/25/17 Sitagliptin Phosphate [Januvia] 100 mg PO DAILY 04/24/18 Amlodipine Besylate [Norvasc -] 10 mg PO DAILY tablet 04/25/18 Aspirin [ASA -] 81 mg PO DAILY tab.chew 04/25/18 Clopidogrel Bisulfate [Plavix -] 75 mg PO DAILY tablet 04/25/18 Furosemide [Lasix -] 40 mg PO DAILY tablet 04/25/18 Gabapentin [Neurontin -] 600 mg PO TID capsule 04/25/18 Lisinopril [Prinivil] 40 mg PO DAILY tablet 04/25/18 Metoprolol Tartrate [Lopressor -] 25 mg PO DAILY tablet 04/25/18 hydrALAZINE HCL [Apresoline -] 25 mg PO BID tablet 04/25/18 Review of Systems - Review of Systems Able to Perform ROS?: Yes Comments:: 07/29/18 18:25 Constitutional: +Chills. No fevers. HEENT: no headache or dizziness. No congestion. No visual/hearing disturbances. CVS: + chest pain. No syncope. Resp: +sob. No cough. Abdomen: +abdominal pain. No nausea or vomiting. Genitourinary: +Hematuria. No urinary sx MUSCULOSKELETAL: No joint pain and swelling. No neck or back pain. SKIN: +Penile itch. No redness or skin changes, no discharge, no rash. No wounds. Hematologic: no easy bruising/bleeding. NEUROLOGIC: No headache, dizziness, LOC or altered mental status. No weakness, numbness or tingling. All other systems reviewed and negative, or as documented in HPI. <Azalea Montero - Last Filed: 07/29/18 18:42> *Physical Exam - Vital Signs Last Vital Signs Temp Pulse Resp BP Pulse Ox 98 F 71 18 150/80 97 07/29/18 14:16 07/29/18 14:16 07/29/18 14:16 07/29/18 14:16 07/29/18 14:16 - Physical Exam Comments: 07/29/18 18:26 General:Well appearing, awake and alert, NAD. HEENT: NCAT, PERRL, EOMI, clear conjunctiva, anicteric, moist mucus membranes, clear oropharynx, no oral lesions.. Neck: neck supple, FROM Resp: CTAB, normal and even respirations, no respiratory distress CVS: RRR, no murmurs, 2+ peripheral pulses throughout, no peripheral edema Abdomen: No CVA tenderness. Obese, soft ventral hernia on Valsalva Back: nontender, normal inspection and ROM MSK: no edema, MAK x4, ROM intact. No clubbing or cyanosis. normal bulk and tone. Extrem: no calf tenderness Neuro: alert, oriented appropriately; no focal neurologic deficits Skin: warm and well perfused, cap refill <2 sec, normal color Male : normal external genitalia, no lesions, normal testicular lie, no scrotal or testicular edema or tenderness. +cremaster reflex bilaterally. no hernia. <Azalea Montero - Last Filed: 07/29/18 18:42> - Vital Signs Last Vital Signs Temp Pulse Resp BP Pulse Ox 98 F 71 18 150/80 97 07/29/18 14:16 07/29/18 14:16 07/29/18 14:16 07/29/18 14:16 07/29/18 14:16 <Aditi Arguello - Last Filed: 07/29/18 20:41> - Vital Signs Last Vital Signs Temp Pulse Resp BP Pulse Ox 98 F 71 18 150/80 97 07/29/18 14:16 07/29/18 14:16 07/29/18 14:16 07/29/18 14:16 07/29/18 14:16 <Esperanza Landers - Last Filed: 07/31/18 10:09> ED Treatment Course - LABORATORY CBC & Chemistry Diagram: 07/29/18 16:04 07/29/18 16:25 - ADDITIONAL ORDERS Additional order review: Laboratory Results 07/29/18 07/29/18 07/29/18 16:25 16:25 16:04 PT with INR 12.20 INR 1.03 Sodium 143 Potassium 4.2 Chloride 107 Carbon Dioxide 30 Anion Gap 6 L BUN 18 Creatinine 1.1 Creat Clearance w eGFR > 60 Random Glucose 136 H Calcium 8.7 Total Bilirubin 0.4 AST 11 L ALT 28 Alkaline Phosphatase 137 H Troponin I < 0.02 Total Protein 6.7 Albumin 3.6 Urine Color Red Urine Appearance Cloudy Urine pH 5.0 Ur Specific Dudley 1.026 Urine Protein 2+ H Urine Glucose (UA) 1+ H Urine Ketones Negative Urine Blood 3+ H Urine Nitrite Negative Urine Bilirubin Negative Urine Urobilinogen Negative Ur Leukocyte Esterase Negative Urine WBC (Auto) 222 Urine RBC (Auto) 6942 Urine Mucus Rare 07/29/18 16:04 RBC 4.63 MCV 87.3 MCHC 34.4 RDW 12.7 MPV 7.9 Neutrophils % 61.4 D Lymphocytes % 27.0 D Monocytes % 6.7 Eosinophils % 4.0 Basophils % 0.9 - Medications Given in the ED: ED Medications Discontinued Medications Generic Name Dose Route Start Last Admin Trade Name Freq PRN Reason Stop Dose Admin Acetaminophen 975 mg 07/29/18 15:19 07/29/18 16:34 Tylenol - PO 07/29/18 15:20 975 mg ONCE ONE Administration Sodium Chloride 1,000 mls @ 1,000 mls/hr 07/29/18 15:19 07/29/18 16:33 Normal Saline - IV 07/29/18 16:18 1,000 mls/hr ASDIR STA Administration Ceftriaxone Sodium 1,000 mg/ 50 mls @ 100 mls/hr 07/29/18 17:44 07/29/18 18: 15 Dextrose IVPB 07/29/18 18:13 100 mls/hr ONCE ONE Administration <Azalea Montero - Last Filed: 07/29/18 18:42> - LABORATORY CBC & Chemistry Diagram: 07/29/18 16:04 07/29/18 16:25 - ADDITIONAL ORDERS Additional order review: Laboratory Results 07/29/18 07/29/18 07/29/18 16:25 16:25 16:04 PT with INR 12.20 INR 1.03 Sodium 143 Potassium 4.2 Chloride 107 Carbon Dioxide 30 Anion Gap 6 L BUN 18 Creatinine 1.1 Creat Clearance w eGFR > 60 Random Glucose 136 H Calcium 8.7 Total Bilirubin 0.4 AST 11 L ALT 28 Alkaline Phosphatase 137 H Troponin I < 0.02 Total Protein 6.7 Albumin 3.6 Urine Color Red Urine Appearance Cloudy Urine pH 5.0 Ur Specific Dudley 1.026 Urine Protein 2+ H Urine Glucose (UA) 1+ H Urine Ketones Negative Urine Blood 3+ H Urine Nitrite Negative Urine Bilirubin Negative Urine Urobilinogen Negative Ur Leukocyte Esterase Negative Urine WBC (Auto) 222 Urine RBC (Auto) 6942 Urine Mucus Rare 07/29/18 16:04 RBC 4.63 MCV 87.3 MCHC 34.4 RDW 12.7 MPV 7.9 Neutrophils % 61.4 D Lymphocytes % 27.0 D Monocytes % 6.7 Eosinophils % 4.0 Basophils % 0.9 - Medications Given in the ED: ED Medications Discontinued Medications Generic Name Dose Route Start Last Admin Trade Name Freq PRN Reason Stop Dose Admin Acetaminophen 975 mg 07/29/18 15:19 07/29/18 16:34 Tylenol - PO 07/29/18 15:20 975 mg ONCE ONE Administration Sodium Chloride 1,000 mls @ 1,000 mls/hr 07/29/18 15:19 07/29/18 16:33 Normal Saline - IV 07/29/18 16:18 1,000 mls/hr ASDIR STA Administration Ceftriaxone Sodium 1,000 mg/ 50 mls @ 100 mls/hr 07/29/18 17:44 07/29/18 18: 15 Dextrose IVPB 07/29/18 18:13 100 mls/hr ONCE ONE Administration <Aditi Arguello - Last Filed: 07/29/18 20:41> - LABORATORY CBC & Chemistry Diagram: 07/31/18 06:40 07/31/18 06:40 <Esperanza Landers Robbi - Last Filed: 07/31/18 10:09> Medical Decision Making - Medical Decision Making 07/29/18 20:40 Patient Name: UDAY MONTALVO THIS IS A PRELIMINARY REPORT FROM [facility] [employer] EXAM: CT abdomen and pelvis with contrast IMAGES:647 DATE OF EXAM: 2018-07-29 18:55:03 REASON FOR EXAM: Mass or hernia COMPARISON: None Findings: Atelectasis and scarring in the lung bases. No pleural effusions. The liver, gallbladder, pancreas, adrenal glands, and spleen are unremarkable. Bilateral renal cysts. No renal or urinary calculi. No AAA. Surgical changes around the cecum are suggestive of prior appendectomy. No evidence for diverticulitis, small bowel obstruction, free fluid, or free air. There are small bilateral inguinal hernias containing fat. No evidence for abdominal mass or ventral hernia. THIS DOCUMENT HAS BEEN ELECTRONICALLY SIGNED <Aditi Arguello - Last Filed: 07/29/18 20:41> - Medical Decision Making 07/29/18 18:23 Urvashi 53 YOM PMHx of CAD, [place] s/p s/p multiple stents (LCx-OM stents 12/31/2014 and mid to distal RCA stentsx3 03/22/2018), HTN, IDDM, HLD, peripheral neuropathy , prostate and bladder cancer, arthritis, sleep apnea, hernia, syncope presenting with hematuria and penile itch x 2-3 days, worse today. +cp and sob. Vital signs reviewed, wnl. Prior notes reviewed, including admissions, discharges and consultations. laboratory results and imaging reviewed, basic labs and lytes wnl, notable for_ . UA_with blood and WBCs, could be hemorrhagic cystitis. will treat as infection as he has urinary sx; IV ceftriaxone given. Cardiac panel_neg trop x1. less likely cardiac chest pain with x 1 week sx. remains ambulatory, chest pain free in the ED. EKG normal sinus rhythm, no interval abnormalities, narrow QRS, ST and T wave segments and morphology normal. Nonspecific T wave abnormalities ED course: no acute events, remained stable and well appearing. Clinically improved after interventions, including analgesia and IVF. stable, well appearing and ambulatory in dept. Dispo: admit for further medical management, urology cs given poor follow up for his bladder ca. 07/31/18 10:08 <Esperanza Landers - Last Filed: 07/31/18 10:09> *DC/Admit/Observation/Transfer - Attestations Scribe Attestion: 07/29/18 18:28 Documentation prepared by Azalea Montero, acting as medical writer for Esperanza Landers MD, . <Azalea Montero - Last Filed: 07/29/18 18:42> - Discharge Dispostion Decision to Admit order: Yes <Aditi Arguello - Last Filed: 07/29/18 20:41> - Discharge Dispostion Decision to Admit order: Yes Decision to Admit order Date/Time: 07/31/18 10:09 <Esperanza Landers - Last Filed: 07/31/18 10:09> Diagnosis at time of Disposition: Hematuria - Discharge Dispostion Condition at time of disposition: Guarded
[2018-07-29] MEDS ORDERED: ACETAMINOPHEN 325 MG TABLET (FP) ONE (16:25)
[2018-07-29 16:44] LABS: URINE APPEARANCE CLOUDY; URINE BILIRUBIN NEGATIVE (<2.0 mg/dL); URINE COLOR RED; URINE GLUCOSE (UA) 1+ (NEGATIVE); URINE KETONE NEGATIVE (NEGATIVE); URINE LEUK ESTERASE NEGATIVE (NEGATIVE); URINE NITRITE NEGATIVE (NEGATIVE); URINE PROTEIN 2+ (NEGATIVE); URINE UROBILINOGEN NEGATIVE mg/dL (0.2-1.0)
[2018-07-29 16:48] LABS: BASO % 0.9 % (0-2.0); HEMATOCRIT 40.4 % (35.4-49); HEMOGLOBIN 13.9 GM/dL (11.7-16.9); MCHC 34.4 g/dl (32.0-35.9); MEAN CELL VOLUME 87.3 fl (80-96); MEAN PLT VOLUME 7.9 fl (7.5-11.1); MONO % 6.7 % (3.8-10.2); NEUT % 61.4 % (42.8-82.8); PLATELET COUNT 274 K/MM3 (134-434); RBC 4.63 M/mm3 (4.00-5.60); RDW 12.7 % (11.9-15.9)
[2018-07-29 16:50] LABS: URINE MUCUS RARE
[2018-07-29 16:56] LABS: INR 1.03 (0.83-1.09); PROTHROMBIN TIME (PATIENT) 12.2 SEC (9.7-13.0)
[2018-07-29 17:11] LABS: ALBUMIN 3.6 g/dl (3.4-5.0); ALK PHOS 137 U/L (45-117); ANION GAP 6 MMOL/L (8-16); BILIRUBIN,TOTAL 0.4 mg/dL (0.2-1); BLOOD UREA NITROGEN 18 mg/dL (7-18); CALCIUM 8.7 mg/dL (8.5-10.1); CHLORIDE 107 mmol/L (98-107); CO2 30 mmol/L (21-32); CREATININE 1.1 mg/dL (0.55-1.3); GLUCOSE,RANDOM 136 mg/dL (74-106); POTASSIUM 4.2 mmol/L (3.5-5.1); SGOT/AST 11 U/L (15-37); SGPT/ALT 28 U/L (13-61); SODIUM 143 mmol/L (136-145); TOT PROT 6.7 g/dl (6.4-8.2)
[2018-07-29] MEDS ORDERED: CEFTRIAXONE 1,000 MG in DEXTROSE 5%-WATER - 50 ML IVPB ONE (17:44)
[2018-07-29] MEDS ORDERED: cefTRIAXone SODIUM 1 GM VIAL ONE (18:12)
[2018-07-29] MEDS ORDERED: CEFTRIAXONE 1 GM/50 ML BAG ONE (18:13)
--- NOTE | 2018-07-29 21:35 | HP ---
CHIEF COMPLAINT: PCP: Ari HISTORY OF PRESENT ILLNESS: This is a 53 year old male with a significant past medical history of [place] s/p 11 stents, most recently 05/2018, HTN, DM, bladder and prostate CA who presented to the ED with hematuria since Monday (6 days ago). He reports that at first it was pinkish and now is jaison blood with clots. He denies any difficulty passing urine. He also c/o right flank pain, chronic midsternal chest pain. He denies N/ V/D. ER course was notable for: (1) CT abd/pel without acut findings (2) Troponin neg x 1 Recent Travel: pt denies PAST MEDICAL HISTORY: MA, CAD, HTN, HLD, ADRI, DM, peripheral neuropathy, Bladder CA, Prostate CA, arthritis PAST SURGICAL HISTORY: cardiac stents, most recent 05/2018 umbilical hernia repair appendectomy rotator cuff x 2 Social History: Smokin-2 cig/week Alcohol: Monday nights, 9 beverages/shots Drugs: Marijuana on Monday Family History: father and brother with heart disease Allergies Penicillins Adverse Reaction (Verified 07/29/18 14:20) HOME MEDICATIONS: 3 Medication Instructions Recorded Atorvastatin Ca [Lipitor] 80 mg PO HS 09/25/17 Duloxetine HCl [Cymbalta -] 60 mg PO DAILY 09/25/17 Insulin (Novolog 70/30) [Novolog 34 units SQ BIDAC 09/25/17 Mix 70/30 Flexpen -] Naproxen [Naprosyn -] 500 mg PO HS PRN 09/25/17 Sitagliptin Phosphate [Januvia] 100 mg PO DAILY 04/24/18 Amlodipine Besylate [Norvasc -] 10 mg PO DAILY tablet 04/25/18 Aspirin [ASA -] 81 mg PO DAILY tab.chew 04/25/18 Clopidogrel Bisulfate [Plavix -] 75 mg PO DAILY tablet 04/25/18 Furosemide [Lasix -] 40 mg PO DAILY tablet 04/25/18 Gabapentin [Neurontin -] 600 mg PO TID capsule 04/25/18 Lisinopril [Prinivil] 40 mg PO DAILY tablet 04/25/18 Metoprolol 25 mg PO DAILY tablet 04/25/18 hydrALAZINE HCL [Apresoline -] 25 mg PO BID tablet 04/25/18 REVIEW OF SYSTEMS CONSTITUTIONAL: Absent: fever, chills, diaphoresis, generalized weakness, malaise, loss of appetite, weight change HEENT: Absent: rhinorrhea, nasal congestion, throat pain, throat swelling, difficulty swallowing, mouth swelling, ear pain, eye pain, visual changes CARDIOVASCULAR: Absent: chest pain, syncope, palpitations, irregular heart rate, lightheadedness , peripheral edema RESPIRATORY: Absent: cough, shortness of breath, dyspnea with exertion, orthopnea, wheezing, stridor, hemoptysis GASTROINTESTINAL: Absent: abdominal pain, abdominal distension, nausea, vomiting, diarrhea, constipation, melena, hematochezia GENITOURINARY: Absent: dysuria, frequency, urgency, hesitancy, hematuria, flank pain, genital pain MUSCULOSKELETAL: Absent: myalgia, arthralgia, joint swelling, back pain, neck pain SKIN: Absent: rash, itching, pallor HEMATOLOGIC/IMMUNOLOGIC: Absent: easy bleeding, easy bruising, lymphadenopathy, frequent infections ENDOCRINE: Absent: unexplained weight gain, unexplained weight loss, heat intolerance, cold intolerance NEUROLOGIC: Absent: headache, focal weakness or paresthesias, dizziness, unsteady gait, seizure, mental status changes, bladder or bowel incontinence PSYCHIATRIC: Absent: anxiety, depression, suicidal or homicidal ideation, hallucinations. PHYSICAL EXAMINATION Vital Signs - 24 hr 3 07/29/18 14:16 Temperature 98 F Pulse Rate 71 Respiratory 18 Rate Blood Pressure 150/80 O2 Sat by Pulse 97 Oximetry (%) GENERAL: Awake, alert, and fully oriented, in no acute distress. HEAD: Normal with no signs of trauma. EYES: Pupils equal, round and reactive to light, extraocular movements intact, sclera anicteric, conjunctiva clear. No lid lag. EARS, NOSE, THROAT: Ears normal, nares patent, oropharynx clear without exudates. Moist mucous membranes. NECK: Normal range of motion, supple without lymphadenopathy, JVD, or masses. LUNGS: Breath sounds equal, clear to auscultation bilaterally. No wheezes, and no crackles. No accessory muscle use. HEART: Regular rate and rhythm, normal S1 and S2 without murmur, rub or gallop. ABDOMEN: Soft, nontender, not distended, normoactive bowel sounds, no guarding, no rebound, no masses. No hepatomegaly or splenomegaly. MUSCULOSKELETAL: Normal range of motion at all joints. No bony deformities or tenderness. mild right CVA tenderness. UPPER EXTREMITIES: 2+ pulses, warm, well-perfused. No cyanosis. No clubbing. No peripheral edema. LOWER EXTREMITIES: 2+ pulses, warm, well-perfused. No calf tenderness. No peripheral edema. NEUROLOGICAL: Cranial nerves II-XII intact. Normal speech. Normal gait. PSYCHIATRIC: Cooperative. Good eye contact. Appropriate mood and affect. SKIN: Warm, dry, normal turgor, no rashes or lesions noted, normal capillary refill. Laboratory Results - last 24 hr 3 07/29/18 07/29/18 07/29/18 16:04 16:04 16:25 WBC 9.0 RBC 4.63 Hgb 13.9 Hct 40.4 MCV 87.3 MCH 30.0 MCHC 34.4 RDW 12.7 Plt Count 274 MPV 7.9 Absolute Neuts (auto) 5.5 Neutrophils % 61.4 D Lymphocytes % 27.0 D Monocytes % 6.7 Eosinophils % 4.0 Basophils % 0.9 Nucleated RBC % 0 PT with INR 12.20 INR 1.03 Sodium 143 Potassium 4.2 Chloride 107 Carbon Dioxide 30 Anion Gap 6 L BUN 18 Creatinine 1.1 Creat Clearance w eGFR > 60 Random Glucose 136 H Calcium 8.7 Total Bilirubin 0.4 AST 11 L ALT 28 Alkaline Phosphatase 137 H Troponin I < 0.02 Total Protein 6.7 Albumin 3.6 Urine Color Red Urine Appearance Cloudy Urine pH 5.0 Ur Specific [place] 1.026 Urine Protein 2+ H Urine Glucose (UA) 1+ H Urine Ketones Negative Urine Blood 3+ H Urine Nitrite Negative Urine Bilirubin Negative Urine Urobilinogen Negative Ur Leukocyte Esterase Negative Urine WBC (Auto) 222 Urine RBC (Auto) 6942 Urine Mucus Rare ECG Normal sinus rhythm Vent rate 66, QTC [address] / T wave changes Radiology Reports CT abd/pel with IV contrast THIS IS A PRELIMINARY REPORT FROM IMAGING RECYCLING SPECIALIST Findings: Atelectasis and scarring in the lung bases. No pleural effusions. The liver, gallbladder, pancreas, adrenal glands, and spleen are unremarkable. Bilateral renal cysts. No renal or urinary calculi. No AAA. Surgical changes around the cecum are suggestive of prior appendectomy. No evidence for diverticulitis, small bowel obstruction, free fluid, or free air. There are small bilateral inguinal hernias containing fat. No evidence for abdominal mass or ventral hernia. One or more of the following dose reduction techniques were used: automated exposure control, adjustment of the mA and/or kV according to patient size, use of iterative reconstructive technique. THIS DOCUMENT HAS BEEN ELECTRONICALLY SIGNED Joshua Biswas MD 07/29/2018 20:24 EST ASSESSMENT/PLAN: 53yM with PMH MA/CAD s/p 11 stents, most recent 05/2018, HTN, HLD, ADRI, DM, peripheral neuropathy, Bladder CA, Prostate CA, arthritis presented to the ED with gross hematuria. hematuria, likely due to bladder CA - urology consult - cardiology consult regarding ASA/Plavix use - if any difficulty urinating, pt advised to notify RN as would then need de [place] torre and CBI - monitor H/H CAD/HTN/HLD - cont home meds for now including plavix and ASA as high risk for stenosis of stents - hydralazine was DC by cardiology on prior visit; pt unsure of meds has in his phone but phone is . will not continue hydralazine - pt adamant that metoprolol is QD not BID, will change to succinate QC DM - cont home meds - BGM AC/HS with novolog ss peripheral neuropathy due to DM - cont home gabapentin DVT PPX - deferred for now, anticipated LOS <48h FEN - tolerating po - BMP in am - low sodium/low fat diet as tolerated Dispo: Pt currently requires further observation for management of his emergent condition. Visit type - Emergency Visit Emergency Visit: Yes ED Registration Date: 07/29/18 Care time: The patient presented to the Emergency Department on the above date and was hospitalized for further evaluation of their emergent condition. - New Patient This patient is new to me today: Yes Date on this admission: 07/29/18 - Critical Care Critical Care patient: No
[2018-07-29] MEDS ORDERED: ATORVASTATIN CA 80 MG TABLET (FP) ONE (23:58)
[2018-07-29] MEDS: ATORVASTATIN CA 80 MG TABLET (FP) PO SCH (23:59)
[2018-07-29] MEDS: GABAPENTIN 300 MG CAPSULE (FP) PO SCH (23:59)
[2018-07-30] MEDS ORDERED: oxyCODONE HCL 5 MG TABLET PO ONE (00:21)
[2018-07-30] MEDS ORDERED: oxyCODONE HCL 5 MG TABLET ONE (00:56)
[2018-07-30 06:13] LABS: BASO % 0.7 % (0-2.0); EOS % 4.4 % (0-4.5); HEMATOCRIT 37.9 % (35.4-49); HEMOGLOBIN 13.1 GM/dL (11.7-16.9); LYMPH % 36.5 % (8-40); MCH 30.3 pg (25.7-33.7); MCHC 34.7 g/dl (32.0-35.9); MEAN CELL VOLUME 87.6 fl (80-96); MEAN PLT VOLUME 7.8 fl (7.5-11.1); NEUT % 49.4 % (42.8-82.8); PLATELET COUNT 228 K/MM3 (134-434); RBC 4.32 M/mm3 (4.00-5.60); RDW 12.7 % (11.9-15.9); WHITE BLOOD COUNT 6.9 K/mm3 (4.0-10.0)
[2018-07-30 06:40] LABS: ANION GAP 9 MMOL/L (8-16); BLOOD UREA NITROGEN 18 mg/dL (7-18); CALCIUM 8.3 mg/dL (8.5-10.1); CHLORIDE 108 mmol/L (98-107); CO2 28 mmol/L (21-32); GLUCOSE,RANDOM 149 mg/dL (74-106); MAGNESIUM 2.1 mg/dL (1.8-2.4); PHOSPHOROUS 3.8 mg/dL (2.5-4.9); POTASSIUM 3.7 mmol/L (3.5-5.1); SODIUM 145 mmol/L (136-145)
[2018-07-30] MEDS ORDERED: sitaGLIPtin PHOSPHATE 50 MG TABLET ONE (06:51)
[2018-07-30] MEDS ORDERED: INSULIN (NOVOLOG MIX 70/30) 100 UNITS/ML MDV SQ ONE ×2 (06:52→17:22)
[2018-07-30] MEDS ORDERED: INSULIN (NOVOLOG) ASPART 100 UNITS/ML 10ML VIAL ONE ×2 (06:53→17:22)
[2018-07-30] MEDS ORDERED: sitaGLIPtin PHOSPHATE 100 MG TABLET (FP) PO SCH (07:00)
[2018-07-30] MEDS ORDERED: INSULIN (NOVOLOG MIX 70/30) 100 UNITS/ML MDV SQ SCH (07:00)
[2018-07-30] MEDS ORDERED: INSULIN SLIDING SCALE (NOVOLOG) 1 VIAL SQ SCH (07:00)
[2018-07-30] MEDS: sitaGLIPtin PHOSPHATE 100 MG TABLET (FP) PO SCH (07:20)
[2018-07-30] MEDS: INSULIN (NOVOLOG MIX 70/30) 100 UNITS/ML MDV SQ SCH ×2 (07:25→17:13)
[2018-07-30] MEDS: INSULIN SLIDING SCALE (NOVOLOG) 1 VIAL SQ SCH ×4 (07:38→21:24)
[2018-07-30] MEDS ORDERED: PT OWN MED DRAWER 7, Y5N ONE (10:11)
[2018-07-30] MEDS ORDERED: FUROSEMIDE 40 MG TABLET (FP) ONE (10:17)
[2018-07-30] MEDS ORDERED: ASPIRIN 81 MG CHEWABLE TABLETS ONE (10:17)
[2018-07-30] MEDS ORDERED: LISINOPRIL 20 MG TABLET (FP) ONE (10:18)
[2018-07-30] MEDS ORDERED: amLODIPine BESYLATE 5 MG TABLET (FP) ONE (10:18)
[2018-07-30] MEDS ORDERED: CLOPIDOGREL BISULFATE 75 MG TABLET (FP) ONE (10:18)
[2018-07-30] MEDS ORDERED: DULoxetine HCL 30 MG CAPSULE.DR (FP) PO ONE (10:19)
[2018-07-30] MEDS: ASPIRIN 81 MG CHEWABLE TABLETS PO SCH (10:20)
[2018-07-30] MEDS: amLODIPine BESYLATE 10 MG TABLET (FP) PO SCH (10:21)
[2018-07-30] MEDS: FUROSEMIDE 40 MG TABLET (FP) PO SCH (10:21)
[2018-07-30] MEDS: LISINOPRIL 20 MG TABLET (FP) PO SCH (10:21)
[2018-07-30] MEDS: DULoxetine HCL 30 MG CAPSULE.DR (FP) PO SCH (10:21)
[2018-07-30] MEDS: metoPROLOL SUCCINATE 25 MG TAB.SR.24H (FP) PO SCH (10:21)
[2018-07-30] MEDS: CLOPIDOGREL BISULFATE 75 MG TABLET (FP) PO SCH (10:21)
[2018-07-30] MEDS: GABAPENTIN 300 MG CAPSULE (FP) PO SCH ×4 (10:29→21:24)
--- NOTE | 2018-07-30 10:31 | EKG ---
Test Reason : Blood Pressure : / mmHG Vent. Rate : 066 BPM Atrial Rate : 066 BPM P-R Int : 184 ms QRS Dur : 090 ms QT Int : 444 ms P-R-T Axes : 072 -18 082 degrees QTc Int : 465 ms NORMAL SINUS RHYTHM NORMAL ECG WHEN COMPARED WITH ECG OF 07-JUN-2018 13:46, NO SIGNIFICANT CHANGE WAS FOUND Confirmed by GUNJAN HANSON MD ([id number]) on 07/30/2018 10:30:48 AM Referred By: Confirmed By:GUNJAN HANSON MD
--- NOTE | 2018-07-30 12:58 | CON.GU ---
Consult - History of Present Illness History of Present Illness: 53 yo male with h/o bladd CA, poorly complaint and has refused follow cystoscopy in the office. Now presents with gross hematuria and suspected uti. 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 History of Recent Travel: No Home Medications - Allergies Allergies/Adverse Reactions: Allergies Allergy/AdvReac Type Severity Reaction Status Date / Time Penicillins AdvReac Verified 07/29/18 14:20 - Home Medications Home Medications: Ambulatory Orders Atorvastatin Ca [Lipitor] 80 mg PO HS 09/25/17 Duloxetine HCl [Cymbalta -] 60 mg PO DAILY 09/25/17 Insulin (Novolog 70/30) [Novolog Mix 70/30 Flexpen -] 34 units SQ BIDAC Naproxen [Naprosyn -] 500 mg PO HS PRN 09/25/17 Sitagliptin Phosphate [Januvia] 100 mg PO DAILY 04/24/18 Amlodipine Besylate [Norvasc -] 10 mg PO DAILY tablet 04/25/18 Aspirin [ASA -] 81 mg PO DAILY tab.chew 04/25/18 Clopidogrel Bisulfate [Plavix -] 75 mg PO DAILY tablet 04/25/18 Furosemide [Lasix -] 40 mg PO DAILY tablet 04/25/18 Gabapentin [Neurontin -] 600 mg PO TID capsule 04/25/18 Lisinopril [Prinivil] 40 mg PO DAILY tablet 04/25/18 Metoprolol Tartrate [Lopressor -] 25 mg PO DAILY tablet 04/25/18 hydrALAZINE HCL [Apresoline -] 25 mg PO BID tablet 04/25/18 Metoprolol Tartrate [Lopressor -] 25 mg PO BID 06/06/18 Family Disease History - Family Disease History Family Disease History: Heart Disease: Father, Brother (CABG, CHF) Review of Systems - Review of Systems Genitourinary: reports: Hematuria Physical Exam- Vital Signs: Vital Signs Temperature 97.6 F 07/30/18 11:29 Pulse Rate 80 07/30/18 11:29 Respiratory Rate 16 07/30/18 11:29 Blood Pressure 155/77 07/30/18 11:29 O2 Sat by Pulse Oximetry (%) 97 07/30/18 11:29 Renal/: Yes: Hematuria Labs: CBC, BMP 07/30/18 06:00 07/30/18 06:00 Imaging - Results Cat Scan: Report Reviewed Problem List - Problems (1) Hematuria Assessment/Plan: await urine culture will need f/u cystoscopy if agreeable may be done as outpt if urine clears Code(s): R31.9 - HEMATURIA, UNSPECIFIED
--- NOTE | 2018-07-30 13:02 | PN ---
Progress Note, Physician Chief Complaint: patient seen and examined in ER awake alert complaning of hematuria with clots h/o bladder cancer and cad s/p stents on Aspirin and plavix - Current Medication List Current Medications: Active Medications Amlodipine Besylate (Norvasc -) 10 mg PO DAILY [facility] Last Admin: 07/30/18 10:21 Dose: 10 mg Aspirin (Asa -) 81 mg PO DAILY [facility] Last Admin: 07/30/18 10:20 Dose: 81 mg Atorvastatin Calcium (Lipitor -) 80 mg PO HS [facility] Last Admin: 07/29/18 23:59 Dose: 80 mg Clopidogrel Bisulfate (Plavix -) 75 mg PO DAILY [facility] Last Admin: 07/30/18 10:21 Dose: 75 mg Duloxetine HCl (Cymbalta -) 60 mg PO DAILY [facility] Last Admin: 07/30/18 10:21 Dose: 60 mg Furosemide (Lasix -) 40 mg PO DAILY [facility] Last Admin: 07/30/18 10:21 Dose: 40 mg Gabapentin (Neurontin -) 600 mg PO TID [facility] Last Admin: 07/30/18 10:29 Dose: 600 mg Insulin Aspart (Novolog Mix 70/30 Vial) 34 units SQ BIDAC [facility] Last Admin: 07/30/18 07:25 Dose: 34 unit Insulin Aspart (Novolog Vial Sliding Scale -) 1 vial SQ ACHS [facility]; Protocol Last Admin: 07/30/18 12:29 Dose: 2 unit Lisinopril (Prinivil) 40 mg PO DAILY [facility] Last Admin: 07/30/18 10:21 Dose: 40 mg Metoprolol Succinate (Toprol Xl -) 25 mg PO DAILY [facility] Last Admin: 07/30/18 10:21 Dose: 25 mg Sitagliptin Phosphate (Januvia -) 100 mg PO DAILY@0700 [facility] Last Admin: 07/30/18 07:20 Dose: 100 mg - Objective Vital Signs: Vital Signs Temperature 97.6 F 07/30/18 11:29 Pulse Rate 80 07/30/18 11:29 Respiratory Rate 16 07/30/18 11:29 Blood Pressure 155/77 07/30/18 11:29 O2 Sat by Pulse Oximetry (%) 97 07/30/18 11:29 Constitutional: Yes: Calm Cardiovascular: Yes: Regular Rate and Rhythm, S1, S2 Respiratory: Yes: CTA Bilaterally Gastrointestinal: Yes: Normal Bowel Sounds, Soft Edema: No Labs: CBC, BMP 07/30/18 06:00 07/30/18 06:00 INR, PTT INR 1.03 (0.83-1.09) 07/29/18 16:25 Assessment/Plan hematuria monitor h/h urology consult regarding possible bladder cancer recurrence cardiology regarding AC as last stent was in may 2018 on aspirin and plavix DM on insulin and januvia CASD on aspirin plavix statin
--- NOTE | 2018-07-30 14:21 | CON.CARD ---
Consult Consult Specialty:: Cardiology Reason for Consultation:: CAD - History of Present Illness History of Present Illness: 53 year old male with a l history of [place] s/p stents, most recently 05/2018, HTN, DM, bladder and prostate CA who presented to the ED with hematuria. There is no dyspnea or chest pain. Has been compliant with dual antiplatelet therapy. Cath 06/08/18 [facility]: Severe proximal and mid LAD and subtotal diagonal ( culprit lesion) sp LAD and diag stenting in setting of NSTEMI. EF 60% with EDP 29mmHg. 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 History of Recent Travel: No Home Medications - Allergies Allergies/Adverse Reactions: Allergies Allergy/AdvReac Type Severity Reaction Status Date / Time Penicillins AdvReac Verified 07/29/18 14:20 - Home Medications Home Medications: Ambulatory Orders Atorvastatin Ca [Lipitor] 80 mg PO HS 09/25/17 Duloxetine HCl [Cymbalta -] 60 mg PO DAILY 09/25/17 Insulin (Novolog 70/30) [Novolog Mix 70/30 Flexpen -] 34 units SQ BIDAC Naproxen [Naprosyn -] 500 mg PO HS PRN 09/25/17 Sitagliptin Phosphate [Januvia] 100 mg PO DAILY 04/24/18 Amlodipine Besylate [Norvasc -] 10 mg PO DAILY tablet 04/25/18 Aspirin [ASA -] 81 mg PO DAILY tab.chew 04/25/18 Clopidogrel Bisulfate [Plavix -] 75 mg PO DAILY tablet 04/25/18 Furosemide [Lasix -] 40 mg PO DAILY tablet 04/25/18 Gabapentin [Neurontin -] 600 mg PO TID capsule 04/25/18 Lisinopril [Prinivil] 40 mg PO DAILY tablet 04/25/18 Metoprolol Tartrate [Lopressor -] 25 mg PO DAILY tablet 04/25/18 hydrALAZINE HCL [Apresoline -] 25 mg PO BID tablet 04/25/18 Metoprolol Tartrate [Lopressor -] 25 mg PO BID 06/06/18 Family Disease History - Family Disease History Family Disease History: Heart Disease: Father, Brother (CABG, CHF) Review of Systems - Review of Systems Constitutional: reports: No Symptoms Eyes: reports: No Symptoms HENT: reports: No Symptoms Neck: reports: No Symptoms Cardiovascular: denies: Chest Pain, Edema, Palpitations, Shortness of Breath Respiratory: reports: No Symptoms Genitourinary: reports: Burning Vital Signs: Vital Signs Temperature 97.6 F 07/30/18 11:29 Pulse Rate 80 07/30/18 11:29 Respiratory Rate 16 07/30/18 11:29 Blood Pressure 155/77 07/30/18 11:29 O2 Sat by Pulse Oximetry (%) 97 07/30/18 11:29 Constitutional: Yes: Well Nourished, No Distress, Calm Eyes: Yes: Conjunctiva Clear, EOM Intact HENT: Yes: Atraumatic, Normocephalic Neck: Yes: Supple, Trachea Midline Respiratory: Yes: Regular, CTA Bilaterally Gastrointestinal: Yes: Normal Bowel Sounds, Soft Cardiovascular: Yes: Regular Rate and Rhythm JVD: No Carotid Bruit: No Heart Sounds: Yes: S1, S2 Murmur: No: Systolic Murmur, Diastolic Murmur Edema: No - Other Data Labs, Other Data: CBC, BMP 07/30/18 06:00 07/30/18 06:00 INR, PTT INR 1.03 (0.83-1.09) 07/29/18 16:25 Troponin, BNP 07/29/18 07/29/18 16:25 21:22 Troponin I < 0.02 < 0.02 Troponin, BNP 07/29/18 07/29/18 16:25 21:22 Troponin I < 0.02 < 0.02 Imaging - Results EKG: Image Reviewed (NSR no STTT changes) Problem List - Problems (1) CAD (coronary artery disease) Code(s): I25.10 - ATHSCL HEART DISEASE OF [place] CORONARY ARTERY W/O ANG PCTRS Assessment/Plan 53 M Bladder Ca and severe CAD sp repeated PCI last was in 05/2018 in setting of a NSTEMI. Continue Dual antiplatelet therapy CAD is stable. No contraindication to cystoscopy Will see as needed.
[2018-07-30] MEDS: ATORVASTATIN CA 80 MG TABLET (FP) PO SCH (21:24)
[2018-07-31] MEDS: INSULIN (NOVOLOG MIX 70/30) 100 UNITS/ML MDV SQ SCH (06:17)
[2018-07-31] MEDS: GABAPENTIN 300 MG CAPSULE (FP) PO SCH ×2 (06:17→13:54)
[2018-07-31] MEDS: sitaGLIPtin PHOSPHATE 100 MG TABLET (FP) PO SCH (06:17)
[2018-07-31] MEDS: INSULIN SLIDING SCALE (NOVOLOG) 1 VIAL SQ SCH ×2 (06:18→11:15)
[2018-07-31 07:29] LABS: BASO % 0.6 % (0-2.0); EOS % 3.7 % (0-4.5); HEMATOCRIT 39.5 % (35.4-49); HEMOGLOBIN 13.1 GM/dL (11.7-16.9); LYMPH % 27.6 % (8-40); MCH 28.7 pg (25.7-33.7); MCHC 33.1 g/dl (32.0-35.9); MEAN CELL VOLUME 86.6 fl (80-96); MONO % 7.4 % (3.8-10.2); NEUT % 60.7 % (42.8-82.8); PLATELET COUNT 223 K/MM3 (134-434); RBC 4.56 M/mm3 (4.00-5.60); RDW 12.3 % (11.9-15.9); WHITE BLOOD COUNT 6.4 K/mm3 (4.0-10.0)
--- NOTE | 2018-07-31 08:31 | PN ---
Progress Note, Physician - Current Medication List Current Medications: Active Medications Amlodipine Besylate (Norvasc -) 10 mg PO DAILY [facility] Last Admin: 07/30/18 10:21 Dose: 10 mg Aspirin (Asa -) 81 mg PO DAILY [facility] Last Admin: 07/30/18 10:20 Dose: 81 mg Atorvastatin Calcium (Lipitor -) 80 mg PO HS [facility] Last Admin: 07/30/18 21:24 Dose: 80 mg Clopidogrel Bisulfate (Plavix -) 75 mg PO DAILY [facility] Last Admin: 07/30/18 10:21 Dose: 75 mg Duloxetine HCl (Cymbalta -) 60 mg PO DAILY [facility] Last Admin: 07/30/18 10:21 Dose: 60 mg Furosemide (Lasix -) 40 mg PO DAILY [facility] Last Admin: 07/30/18 10:21 Dose: 40 mg Gabapentin (Neurontin -) 600 mg PO TID [facility] Last Admin: 07/31/18 06:17 Dose: 600 mg Insulin Aspart (Novolog Mix 70/30 Vial) 34 units SQ BIDAC [facility] Last Admin: 07/31/18 06:17 Dose: 34 unit Insulin Aspart (Novolog Vial Sliding Scale -) 1 vial SQ ACHS [facility]; Protocol Last Admin: 07/31/18 06:18 Dose: Not Given Lisinopril (Prinivil) 40 mg PO DAILY [facility] Last Admin: 07/30/18 10:21 Dose: 40 mg Metoprolol Succinate (Toprol Xl -) 25 mg PO DAILY [facility] Last Admin: 07/30/18 10:21 Dose: 25 mg Sitagliptin Phosphate (Januvia -) 100 mg PO DAILY@0700 [facility] Last Admin: 07/31/18 06:17 Dose: 100 mg - Objective Vital Signs: Vital Signs Temperature 97.7 F 07/31/18 07:38 Pulse Rate 73 07/31/18 07:38 Respiratory Rate 20 07/31/18 07:38 Blood Pressure 150/86 07/31/18 07:38 O2 Sat by Pulse Oximetry (%) 96 07/30/18 23:25 Labs: CBC, BMP 07/31/18 06:40 INR, PTT INR 1.03 (0.83-1.09) 07/29/18 16:25 Problem List - Problems (1) Hematuria Assessment/Plan: - likely due to bladder CA - urology consult noted -culture pending -agrees to Cysto - monitor H/H Code(s): R31.9 - HEMATURIA, UNSPECIFIED (2) Sleep apnea Code(s): G47.30 - SLEEP APNEA, UNSPECIFIED (3) CAD (coronary artery disease) Assessment/Plan: - cont home meds for now including plavix and ASA as high risk for stenosis of stents - hydralazine was DC by cardiology on prior visit D Code(s): I25.10 - ATHSCL HEART DISEASE OF [place] CORONARY ARTERY W/O ANG PCTRS (4) Diabetes mellitus Assessment/Plan: - cont home meds - BGM AC/HS with novolog ss Code(s): E11.9 - TYPE 2 DIABETES MELLITUS WITHOUT COMPLICATIONS Qualifiers: Diabetes mellitus type: type 2
[2018-07-31 08:35] LABS: ALBUMIN 3.3 g/dl (3.4-5.0); ALK PHOS 120 U/L (45-117); ANION GAP 9 MMOL/L (8-16); BILIRUBIN,TOTAL 0.7 mg/dL (0.2-1); BLOOD UREA NITROGEN 16 mg/dL (7-18); CALCIUM 8.8 mg/dL (8.5-10.1); CHLORIDE 106 mmol/L (98-107); CO2 28 mmol/L (21-32); GLUCOSE,RANDOM 182 mg/dL (74-106); POTASSIUM 3.8 mmol/L (3.5-5.1); SGOT/AST 14 U/L (15-37); SGPT/ALT 29 U/L (13-61); SODIUM 143 mmol/L (136-145)
[2018-07-31 09:14] VITALS: BP 133/58; PULSE 71; TEMP 97.8
[2018-07-31] MEDS: CLOPIDOGREL BISULFATE 75 MG TABLET (FP) PO SCH (09:51)
[2018-07-31] MEDS: DULoxetine HCL 30 MG CAPSULE.DR (FP) PO SCH (09:51)
[2018-07-31] MEDS: amLODIPine BESYLATE 10 MG TABLET (FP) PO SCH (09:52)
[2018-07-31] MEDS: FUROSEMIDE 40 MG TABLET (FP) PO SCH (09:52)
[2018-07-31] MEDS: LISINOPRIL 20 MG TABLET (FP) PO SCH (09:52)
[2018-07-31] MEDS: ASPIRIN 81 MG CHEWABLE TABLETS PO SCH (09:52)
[2018-07-31] MEDS: metoPROLOL SUCCINATE 25 MG TAB.SR.24H (FP) PO SCH (09:52)
[2018-07-31] MEDS ORDERED: INSULIN (NOVOLOG) ASPART 100 UNITS/ML 10ML VIAL ONE (10:57)
--- NOTE | 2018-07-31 15:00 | DS ---
Physical Examination Vital Signs: Vital Signs Temperature 97.8 F 07/31/18 09:14 Pulse Rate 71 07/31/18 09:14 Respiratory Rate 20 07/31/18 09:14 Blood Pressure 133/58 L 07/31/18 09:14 O2 Sat by Pulse Oximetry (%) 96 07/31/18 08:00 Labs: CBC, BMP 07/31/18 06:40 07/31/18 06:40 Discharge Summary Reason For Visit: HEMATURIA, MALIGNANT NEOPLASM OF URINARY BLADDER Current Active Problems Hematuria (Acute) Sleep apnea (Acute) Condition: Improved - Instructions Referrals: Purnima Chapman MD [Primary Care Provider] - 1 Week Frandy Ford MD [Staff Physician] - 1 Week - Home Medications Comprehensive Discharge Medication List: Ambulatory Orders Atorvastatin Ca [Lipitor] 80 mg PO HS 09/25/17 Duloxetine HCl [Cymbalta -] 30 mg PO DAILY 09/25/17 Insulin (Novolog 70/30) [Novolog Mix 70/30 Flexpen -] 34 units SQ BIDAC Naproxen [Naprosyn -] 500 mg PO HS PRN 09/25/17 Sitagliptin Phosphate [Januvia] 100 mg PO DAILY 04/24/18 Amlodipine Besylate [Norvasc -] 10 mg PO DAILY tablet 04/25/18 Aspirin [ASA -] 81 mg PO DAILY tab.chew 04/25/18 Clopidogrel Bisulfate [Plavix -] 75 mg PO DAILY tablet 04/25/18 Furosemide [Lasix -] 40 mg PO DAILY tablet 04/25/18 Gabapentin [Neurontin -] 600 mg PO TID capsule 04/25/18 Lisinopril [Prinivil] 40 mg PO DAILY tablet 04/25/18 Metoprolol Tartrate [Lopressor -] 25 mg PO DAILY tablet 04/25/18 hydrALAZINE HCL [Apresoline -] 25 mg PO BID tablet 04/25/18
== END 2018-07-31 15:42 | disposition home or self-care (01) ==
LOC: JER 14:15 → JERBED 20:41 → J6S 07-30 15:33
PROVIDERS: ADMIT Internal Medicine; ATTEND Family Medicine
PROC: 3E03329 Introduction of Other Anti-infective into Peripheral Vein, Percutaneous Approach (ICD-10-PCS; principal; 2018-07-29)
PROC: 3E0337Z Introduction of Electrolytic and Water Balance Substance into Peripheral Vein, Percutaneous Approach (ICD-10-PCS; 2018-07-29)
PROC: 3E013VG Introduction of Insulin into Subcutaneous Tissue, Percutaneous Approach (ICD-10-PCS; 2018-07-29)
DX: R31.9 Hematuria, unspecified (principal); I10 Essential (primary) hypertension; E78.5 Hyperlipidemia, unspecified; E11.9 Type 2 diabetes mellitus without complications; I25.10 Atherosclerotic heart disease of native coronary artery without angina pectoris; I25.2 Old myocardial infarction; G62.9 Polyneuropathy, unspecified; M19.90 Unspecified osteoarthritis, unspecified site; G47.33 Obstructive sleep apnea (adult) (pediatric); F03.90 Unspecified dementia, unspecified severity, without behavioral disturbance, psychotic disturbance, mood disturbance, and anxiety; C61 Malignant neoplasm of prostate; C67.9 Malignant neoplasm of bladder, unspecified; F17.210 Nicotine dependence, cigarettes, uncomplicated; Z79.82 Long term (current) use of aspirin; Z79.4 Long term (current) use of insulin; Z86.73 Personal history of transient ischemic attack (TIA), and cerebral infarction without residual deficits; Z95.5 Presence of coronary angioplasty implant and graft; Z88.0 Allergy status to penicillin; Z91.19 Patient's noncompliance with other medical treatment and regimen; Z79.84 Long term (current) use of oral hypoglycemic drugs
CPT/HCPCS: 36415; 74177-TC; 80048; 80053; 81003; 81015; 82962; 83036; 83735; 84100; 84484; 85025; 85610; 87086; 93005; 93010; 99285-25; G0378; J7030

== ENCOUNTER 2018-09-10 15:58 | Observation (INO) | payer OTHER ==
--- NOTE | 2018-09-10 16:17 | PDOC ---
Rapid Medical Evaluation Chief Complaint: Shortness of Breath Medical Evaluation: Allergies Allergy/AdvReac Type Severity Reaction Status Date / Time Penicillins AdvReac Verified 07/29/18 14:20 09/10/18 16:12 I have performed a brief in-person evaluation of this patient. The patient presents with a chief complaint of: CP, SOB, moist cough and non productive, + CP presently, with fevers seen by Ari today and EKG "OK". with activity became worse. Pertinent physical exam findings: pale, ? LOC this afternoon- didnt call EMS , son brought to ER for evaluation. I have ordered the following: EKG, taken to ER bed The patient will proceed to the ED for further evaluation. 09/10/18 16:13 09/10/18 16:17 Discharge Disposition - Diagnosis Chest pain Qualifiers: Chest pain type: unspecified Qualified Code(s): R07.9 - Chest pain, unspecified - Referrals - Patient Instructions - Post Discharge Activity
--- NOTE | 2018-09-10 17:40 | PDOC ---
History of Present Illness - General Chief Complaint: Shortness of Breath Stated Complaint: CHEST THIGHTNESS SYNCOPE Time Seen by Provider: 09/10/18 16:52 History Source: Patient Exam Limitations: No Limitations - History of Present Illness Initial Comments: 09/10/18 17:38 Patient is a 53 year old male with a PMHx of multiple SC's s/p multiple stents, HTN, IDDMII w/ Peripheral Neuropathy, HLD, COPD, arthritis, prostate cancer, bladder who presents here s/p syncopal episode this afternoon. Patient reports he started experiencing worsening shortness of breath when walking a few steps that started Monday (09/07/18) associated with substernal, throbbing, constant, nonradiating chest pain. Patient states the level of pain is 6/10. He then reports going to his PCP, Dr. Chapman this morning and had an EKG done with no abnormal changes. He then went home and when he got up to do the dishes, he lost consciousness and does not remember what happened since then. Unable to recall if he had any palpitations, chest pain or shortness of breath before, during, or after syncopal episode. States that his brother in laws 90 year old mother witnessed his syncopal episode and told him he was on the floor for 15- 20 minutes unconscious. She then called her son and brought him in the ED. Patient reports compliance wit has been compliant with dual antiplatelet therapy. Last stent was done at [facility] 06/08/2018 and was found to have severe proximal and mid LAD with subtotal diagonal sp LAD and stenting in setting of NSTEMI. EF was 60% Otherwise, patient denies any fever, chills, nausea, vomiting, palpitations, diaphoresis, acute pack pain, acute abdominal pain, acute vision changes, headaches, diarrhea, constipation. Upon further questioning, patient states he had a heated debate with his granddaughter this afternoon, right before he lost consciousness. States that he feels incredibly depressed and hopeless and thinks about but no active active States he owns guns at home but has no plans to use them at this moment. States he wants to stay alive for his grandchildren. Otherwise denies any homicidal or suidical ideations. PMHx: HTN HLD IDDMII w/ Peripheral Neuropathy Multiple SC's s/p multiple stents COPD Arthritis Prostate cancer PSHx: Multiple Cardiac stents Umbilical hernia repair Appendectomy Rotator cuff x2 Cardiac Catherization (last one 06/08/2018) Social Hx Quit smoking 2 months ago. Smoked 20+ years ago Drinks every Charli between 4-10 shots of elizabeth amadeo One joint of Marijuana every Charli Family Hx: Father- History of CAD and SC Brother- History of CAD and SC Medications: Amlodipine 10mg daily Hydralazine 25mg BID Atorvastatin 80mg daily Lasix 40mg daily Novolog 70/30. 34 units BID Gabapentin 600mg TID Lisinopril 40mg daily Duloxetine 30mg daily Clopidogrol 75mg daily Metoprolol 25mg daily Baby ASA 81mg daily Allergies: Penicillins Past History - Travel Traveled outside of the country in the last 30 days: No Close contact w/someone who was outside of country & ill: No - Past Medical History Allergies/Adverse Reactions: Allergies Allergy/AdvReac Type Severity Reaction Status Date / Time Penicillins AdvReac Verified 07/29/18 14:20 Home Medications: Ambulatory Orders Insulin (Novolog 70/30) [Novolog Mix 70/30 Flexpen -] 34 units SQ BIDAC Naproxen [Naprosyn -] 500 mg PO HS PRN 09/25/17 Sitagliptin Phosphate [Januvia] 100 mg PO DAILY 04/24/18 Amlodipine Besylate [Norvasc -] 10 mg PO DAILY #30 tablet 09/12/18 Aspirin [ASA -] 81 mg PO DAILY #30 tab.chew 09/12/18 Atorvastatin Ca [Lipitor] 80 mg PO HS #30 tablet 09/12/18 Clopidogrel Bisulfate [Plavix -] 75 mg PO DAILY #30 tablet 09/12/18 Duloxetine HCl [Cymbalta -] 30 mg PO DAILY #30 capsule.dr 09/12/18 Furosemide [Lasix -] 40 mg PO DAILY #30 tablet 09/12/18 Gabapentin [Neurontin -] 600 mg PO TID #180 capsule 09/12/18 Lisinopril [Prinivil] 40 mg PO DAILY #60 tablet 09/12/18 Metoprolol Tartrate [Lopressor -] 25 mg PO BID #60 tablet 09/12/18 Anemia: No Asthma: No Cancer: Yes (bladder multiple times and at present time) Cardiac Disorders: Yes (SC with cardiac stents) CVA: Yes (TIA 03/2018) COPD: No Dementia: Yes Diabetes: Yes (IDDM) Disorders: Yes (kidney stones) HTN: Yes Hypercholesterolemia: Yes Seizures: No Thyroid Disease: No - Surgical History Abdominal Surgery: Yes (REPAIR UMBILICAL HERNIA) Appendectomy: Yes Neurologic Surgery: No Orthopedic Surgery: (rotator cuff) - Immunization History Immunization Up to Date: Yes - Suicide/Smoking/Psychosocial Hx Smoking History: Never smoked Have you smoked in the past 12 months: No Number of Cigarettes Smoked Daily: 2 If you are a former smoker, when did you quit?: 2012 Information on smoking cessation initiated: No 'Breaking Loose' booklet given: 06/07/18 Hx Alcohol Use: No Drug/Substance Use Hx: No Substance Use Type: None Hx Substance Use Treatment: No Review of Systems - Review of Systems Able to Perform ROS?: Yes Is the patient limited Beninese proficient: No Constitutional: No: Chills, Diaphoresis, Fever, Malaise, Night Sweats HEENTM: No: Blurred Vision, Nose Congestion, Throat Pain Respiratory: Yes: Shortness of Breath, SOB with Exertion, SOB at Rest. No: Stridor, Wheezing, Productive cough, Hemoptysis Cardiac (ROS): Yes: Syncope, Chest Tightness. No: Edema, Lightheadedness, Palpitations ABD/GI: No: Abdominal Distended, Abd. Pain w/ defecation, Blood Streaked Bowels , Constipated, Diarrhea, Nausea, Rectal Bleeding, Vomiting, Abdominal cramping, Tarry Stools : No: Burning, Dysuria, Discharge, Flank Pain, Hematuria Musculoskeletal: No: Joint Pain, Joint Swelling, Joint Stiffness Integumentary: No: Bruising, Dryness, Erythema Neurological: Yes: Numbness (LE ) Psychiatric: No: Frequent Crying, Sleep Pattern Change *Physical Exam - Vital Signs Last Vital Signs Temp Pulse Resp BP Pulse Ox 98.2 F 79 18 133/87 96 09/10/18 16:13 09/10/18 16:13 09/10/18 16:13 09/10/18 16:13 09/10/18 16:13 - Physical Exam General Appearance: Yes: Nourished (Awake, Alert, in no acute distress ), Appropriately Dressed HEENT: positive: EOMI, HAZEL, Symmetrical. negative: Pharyngeal Erythema, Tonsillar Exudate, Tonsillar Erythema, Rhinorrhea, Sinus Tenderness Neck: positive: Trachea midline, Supple. negative: Carotid bruit, Decreased range of motion, Lymphadenopathy (R), Lymphadenopathy (L) Respiratory/Chest: positive: Lungs Clear, Normal Breath Sounds. negative: Chest Tender, Respiratory Distress, Accessory Muscle Use, Labored Respiration, Crackles, Rales, Rhonchi, Stridor, Wheezing, Hyperresonant Cardiovascular: positive: Regular Rhythm, Regular Rate, S1, S2, Edema (trace ). negative: Diastolic Murmur, Systolic Murmur, Gallop/S4, Irregularly Irregular Vascular Pulses: Dorsalis-Pedis (R): 2+, Doralis-Pedis (L): 2+ Gastrointestinal/Abdominal: positive: Normal Bowel Sounds, Soft, Hernia ( Periumbilical ). negative: Organomegaly, Pulsatile Mass, Increased Bowel Sounds , Guarding, Rebound, Tenderness Musculoskeletal: positive: Normal Inspection, CVA Tenderness. negative: CVA Tenderness (R), CVA Tenderness (L), Decreased Range of Motion Extremity: positive: Pedal Edema (b/l LE ), Swelling (B/L LE). negative: Calf Tenderness, Erythema Integumentary: positive: Dry, Warm. negative: Jaundice, Pale, Cold, Ecchymosis Neurologic: positive: speech language pathologist travel II-XII NML intact, Fully Oriented, Alert, Normal Mood/ Affect, Normal Response, Motor Strength 5/5, Sensory Deficit (B/L LE ) Moderate Sedation - Procedure Monitoring Vital Signs: Procedure Monitoring Vital Signs Temperature 98.2 F 09/10/18 16:13 Pulse Rate 79 09/10/18 16:13 Respiratory Rate 18 09/10/18 16:13 Blood Pressure 133/87 09/10/18 16:13 O2 Sat by Pulse Oximetry (%) 96 09/10/18 16:13 Heart Score/ECG Review - History History: Highly suspicious - Electrocardiogram EKG: Normal - Age Age: </= 45 - Risk Factors Risk Factors Heart Score: Yes Hx Hypercholesterolemia, Yes Hx Hypertension, Yes Hx Diabetes, Yes Smoking History, Yes Positive family hx of cardiac disease, Yes Hx Obesity Based on the list above the patient has:: >/=3 risk factors or Hx atherosclerotic disease - ECG Intrepretation Rhythm: Regular Rhythm - [place]: Normal - P and TN Prominent R with upright T in V1 (true posterior SC): No Delta Wave(s) Present: No WPW: No - ECG Impressions Normal ECG: Yes ED Treatment Course - LABORATORY CBC & Chemistry Diagram: 09/11/18 05:15 09/11/18 05:15 - RADIOLOGY Radiology Studies Ordered: Category Date Time Status CHEST X-RAY PORTABLE* [RAD] Stat Radiology 09/10/18 17:32 Ordered Medical Decision Making - Medical Decision Making 09/10/18 18:13 Patient presents with a 4 day history of Shortness of breath and dyspnea on exertion associated with chest pain and one syncopal episode this afternoon. Due to patients risk factor, which includes multiple SC's with stenting, HTN, HLD, IDDMII, and recent stenting 05/2018, differential diagnosis may include, but not limited to NSTEMI/UA, STEMI, stenosis of stents, Arrythmias. -CBC, CMP, Cardiac troponins -EKG NSR @79 BPM with no std or francisco javier -Chest X-Ray ordered -Cardiac monitoring -ASA 81mg once ordered. Patient reports taking 81mg this morning 09/10/18 18:24 -Consult placed and call made out to Dr. Portillo who agrees with admission and will see him in the morning. -Will consult cardiology once cardiac workup is back -Difficulty placing a line on patient 09/10/18 18:55 -Positive Orthostats BP sitting 139/82 BP standing 119/57 -IV LINE placed -Will give 1L IV NS -Patient reports improvement with shortness of breath and chest pain. -Awaiting for labs -Will likely require admission for tele obs due to his high risk and extensive cardiac history -Will sign out to night team 09/10/18 18:59 *DC/Admit/Observation/Transfer Diagnosis at time of Disposition: Chest pain Qualifiers: Chest pain type: unspecified Qualified Code(s): R07.9 - Chest pain, unspecified - Discharge Dispostion Disposition: HOME Condition at time of disposition: Improved - Prescriptions - Referrals - Patient Instructions - Post Discharge Activity
--- NOTE | 2018-09-10 17:46 | PDOC ---
Attending Attestation - HPI HPI: 09/10/18 18:39 The patient is a 53 year old male with a past medical multiple IN, HLD, HTN, bladder ca, prostate ca, and peripheral neuropathy who presents to the emergency department for evaluation s/p syncopal event this afternoon. Patient reports losing consciousness after getting into a stressful argument with his grand daughter. He states a family member saw him lying on the floor for 15-20 minutes. Patient reports intermittent episodes of chest pain with worsening shortness of breath since Monday. The patient had an EKG done with no abnormal changes this morning. The patient denies back pain, abdominal pain, palpitations, headache, fever, chills, nausea, vomiting, diarrhea, and constipation. - Physicial Exam PE: GENERAL: Awake, alert, and fully oriented, in no acute distress HEAD: No signs of trauma EYES: PERRLA, EOMI, sclera anicteric, conjunctiva clear NECK: Normal ROM. LUNGS: Breath sounds equal, clear to auscultation bilaterally. No wheezes, and no crackles HEART: Regular rate and rhythm, normal S1 and S2, no murmurs, rubs or gallops ABDOMEN: Soft, nontender, normoactive bowel sounds. No guarding, no rebound. No masses EXTREMITIES: Normal range of motion, no edema. No clubbing or cyanosis. No cords, erythema, or tenderness NEUROLOGICAL: Cranial nerves II through XII grossly intact. Normal speech, normal gait SKIN: Warm, Dry, normal turgor, no rashes or lesions noted. <Constanza Vazquez - Last Filed: 09/10/18 18:39> - Resident Resident Name: Tigist Mooney - ED Attending Attestation I have performed the following: I have examined & evaluated the patient, The case was reviewed & discussed with the resident, I agree w/resident's findings & plan, Exceptions are as noted - Medical Decision Making 09/10/18 18:47 A portion of this note was documented by scribe services under my direction. I have reviewed the details of the note, within reason, and agree with the documentation with the following case summary and management plan written by me. Patient treated in the ED. Nursing notes are reviewed and incorporated into the medical decision-making. Vital signs reviewed. Peripheral IV access obtained by the nurse, laboratory studies are drawn and sent, reviewed and interpreted by myself. Vital Signs Temp Pulse Resp BP Pulse Ox 98.2 F 79 18 133/87 96 09/10/18 16:13 09/10/18 16:13 09/10/18 16:13 09/10/18 16:13 09/10/18 16:13 53-year-old male with past medical history bladder cancer, coronary disease status post multiple's chronic stents presents with chest pain and syncope. Today, patient started endorsing some chest tightness and saw his primary care physician where he obtain an EKG that was reportedly negative. The patient went home and noted that he persistent chest discomfort. However, the patient had an argument with his granddaughter subsequently went to the bathroom where he had a syncopal episode. Patient denies head trauma or injuries. Does report persistence of chest tightness reminiscent of his prior IN. Patient last had a cardiac catheterization in May 2018 which had a stent placed in the LAD as per patient. Denies recent illnesses fevers or chills. Reports parents his medications. We'll need to rule out IN. We'll obtain labs, troponin and a chest x-ray. However, patient will need to be admitted given his high risk. As of note, the patient also endorse to me feeling depressed. He stated that he's been undergoing many multiple medical problems as well as having social issues at home where he feels that his lack of support. Patient endorses passive suicidal ideation to me but denies any active suicidal or homicidal ideation. Reports that his grandchildren is what he some alive. Patient states that sometimes he jokes around how hopeless he feels. However he denies doing any injury or harm to himself or to others at this time. Patient is agreeable to see psychiatrist or his admission. The patient also notes that he does have guns at home. I had consulted Dr. Portillo who states that he will see the patient as a project consultant. <Martínez Arellano - Last Filed: 09/10/18 18:50> Heart Score/ECG Review #1 ECG reviewed & interpreted by me at: 16:05 09/10/18 17:45 NSR 79, no std/francisco javier, normal axis, normal intervals, QTC 442 msec <Martínez Arellano - Last Filed: 09/10/18 18:50> Attestations - Attestations Documentation prepared by Constanza Vazquez, acting as medical staffing coordinator for Martínez Arellano MD. <Constanza Vazquez - Last Filed: 09/10/18 18:39>
[2018-09-10] MEDS ORDERED: SODIUM CHLORIDE 1,000 ML IV STA (18:56)
[2018-09-10 19:00] LABS: BASO % 0.8 % (0-2.0); EOS % 4.2 % (0-4.5); HEMATOCRIT 40.4 % (35.4-49); LYMPH % 25.4 % (8-40); MCH 29.5 pg (25.7-33.7); MCHC 34.7 g/dl (32.0-35.9); MEAN PLT VOLUME 8.4 fl (7.5-11.1); MONO % 11.1 % (3.8-10.2); NEUT % 58.5 % (42.8-82.8); PLATELET COUNT 227 K/MM3 (134-434); RBC 4.75 M/mm3 (4.00-5.60); RDW 12.8 % (11.9-15.9); WHITE BLOOD COUNT 6.6 K/mm3 (4.0-10.0)
[2018-09-10] MEDS: ASPIRIN 81 MG CHEWABLE TABLETS PO ONE (19:13)
[2018-09-10 19:17] LABS: PROTHROMBIN TIME (PATIENT) 11.8 SEC (9.7-13.0)
[2018-09-10 20:03] LABS: ALBUMIN 3.7 g/dl (3.4-5.0); ALK PHOS 137 U/L (45-117); ANION GAP 7 MMOL/L (8-16); BILIRUBIN,TOTAL 0.4 mg/dL (0.2-1); BLOOD UREA NITROGEN 12 mg/dL (7-18); CALCIUM 8.6 mg/dL (8.5-10.1); CHLORIDE 106 mmol/L (98-107); CO2 28 mmol/L (21-32); CREATININE 1.1 mg/dL (0.55-1.3); GLUCOSE,RANDOM 131 mg/dL (74-106); POTASSIUM 3.7 mmol/L (3.5-5.1); SGOT/AST 15 U/L (15-37); SGPT/ALT 34 U/L (13-61); SODIUM 141 mmol/L (136-145); TOT PROT 6.8 g/dl (6.4-8.2)
[2018-09-10] MEDS ORDERED: GABAPENTIN 300 MG CAPSULE (FP) PO ONE (20:57)
[2018-09-10] MEDS ORDERED: oxyCODONE HCL 5 MG TABLET PO ONE (20:57)
[2018-09-10] MEDS ORDERED: oxyCODONE HCL 5 MG TABLET ONE (20:58)
--- NOTE | 2018-09-10 21:08 | PDOC ---
*Physical Exam - Vital Signs Last Vital Signs Temp Pulse Resp BP Pulse Ox 98.2 F 79 18 133/87 96 09/10/18 16:13 09/10/18 16:13 09/10/18 16:13 09/10/18 16:13 09/10/18 16:13 - Physical Exam Comments: 09/10/18 23:58 General Appearance: Nourished. No Apparent Distress HEENT: No Pharyngeal Erythema, Tonsillar Exudate, Tonsillar Erythema Neck: No Cervical Lymphadenopathy Respiratory/Chest: Lungs Clear, Normal Breath Sounds. No Crackles, Rales, Rhonchi, Wheezing Cardiovascular: Regular Rhythm, Regular Rate. No Murmur, Gallops, Rubs Gastrointestinal/Abdominal: Normal Bowel Sounds, Soft. No Guarding, Rebound, Tenderness Musculoskeletal: No CVA Tenderness Extremity: Normal Capillary Refill Integumentary: Normal Color, Dry, Warm Neurologic: Fully Oriented, Alert, Normal Mood/Affect, Normal Response, ED Treatment Course - LABORATORY CBC & Chemistry Diagram: 09/10/18 17:53 09/10/18 17:53 - ADDITIONAL ORDERS Additional order review: Laboratory Results 09/10/18 09/10/18 17:53 17:53 PT with INR 11.80 INR 1.00 Sodium 141 Potassium 3.7 Chloride 106 Carbon Dioxide 28 Anion Gap 7 L BUN 12 Creatinine 1.1 Creat Clearance w eGFR > 60 Random Glucose 131 H Calcium 8.6 Total Bilirubin 0.4 AST 15 ALT 34 Alkaline Phosphatase 137 H Creatine Kinase 114 Troponin I < 0.02 Total Protein 6.8 Albumin 3.7 09/10/18 17:53 RBC 4.75 MCV 85.0 MCHC 34.7 RDW 12.8 MPV 8.4 Neutrophils % 58.5 Lymphocytes % 25.4 Monocytes % 11.1 H Eosinophils % 4.2 Basophils % 0.8 - Medications Given in the ED: ED Medications Discontinued Medications Generic Name Dose Route Start Last Admin Trade Name Freq PRN Reason Stop Dose Admin Aspirin 81 mg 09/10/18 19:15 09/10/18 19:13 Asa - PO 09/10/18 19:16 81 mg ONCE ONE Administration Sodium Chloride 1,000 mls @ 1,000 mls/hr 09/10/18 18:56 09/10/18 19:13 Normal Saline - IV 09/10/18 19:55 1,000 mls/hr ASDIR STA Administration Oxycodone HCl 5 mg 09/10/18 20:57 09/10/18 21:00 Roxicodone - PO 09/10/18 20:58 5 mg ONCE ONE Administration Progress Note - Progress Note Progress Note: The patient is a 53 year old male with a history of multiple MIs, HTN, HLD, DM who presents for evaluation of chest pain and following a syncopal episode. The patient has also endorsed passive SI here in the ED. Psych has been consulted and will evaluate the patient tomorrow. The patient is pending lab results and likely admission for syncope and chest pain. Medical Decision Making - Medical Decision Making 09/11/18 00:00 cbc, cmp, troponin are unremarkable. We discussed the case with the hospitalist team who accepted the patient for admission. *DC/Admit/Observation/Transfer Diagnosis at time of Disposition: Chest pain Qualifiers: Chest pain type: unspecified Qualified Code(s): R07.9 - Chest pain, unspecified - Discharge Dispostion Condition at time of disposition: Stable Decision to Admit order: Yes - Referrals - Patient Instructions - Post Discharge Activity
--- NOTE | 2018-09-10 22:23 | HP ---
CHIEF COMPLAINT: chest pain, syncope PCP: Ari HISTORY OF PRESENT ILLNESS: 53 year old male with a PMHx of multiple KS's s/p multiple stents, HTN, IDDMII w / Peripheral Neuropathy, HLD, COPD, arthritis, prostate cancer, bladder ca presented s/p syncopal episode this afternoon on 09/10 in the afternoon, witnessed, lasted about 15min. Uncertain whether trauma to head, but patient does c/o some intermittent vertigo. Prior to this patient was c/o substernal chest pain for the past 2-[address] Chapman in office just prior to syncope episode. ER course was notable for: (1) ASA (2) NS (3) oxycodone Recent Travel: none PAST MEDICAL HISTORY: HTN HLD IDDMII w/ Peripheral Neuropathy Multiple KS's s/p multiple stents COPD Arthritis Prostate cancer bladder ca PSHx: Multiple Cardiac stents Umbilical hernia repair Appendectomy Rotator cuff x2 Cardiac Catherization (last one 06/08/2018) Social Hx Quit smoking 2 months ago. Smoked 20+ years ago Drinks every Monday between 4-10 shots of elizabeth amadeo One joint of Marijuana every Monday Family Hx: Father- History of CAD and KS Brother- History of CAD and KS Allergies Penicillins Adverse Reaction (Verified 07/29/18 14:20) HOME MEDICATIONS: Home Medications Medication Instructions Recorded Atorvastatin Ca [Lipitor] 80 mg PO HS 09/25/17 Duloxetine HCl [Cymbalta -] 30 mg PO DAILY 09/25/17 Insulin (Novolog 70/30) [Novolog 34 units SQ BIDAC 09/25/17 Mix 70/30 Flexpen -] Naproxen [Naprosyn -] 500 mg PO HS PRN 09/25/17 Sitagliptin Phosphate [Januvia] 100 mg PO DAILY 04/24/18 Amlodipine Besylate [Norvasc -] 10 mg PO DAILY tablet 04/25/18 Aspirin [ASA -] 81 mg PO DAILY tab.chew 04/25/18 Clopidogrel Bisulfate [Plavix -] 75 mg PO DAILY tablet 04/25/18 Furosemide [Lasix -] 40 mg PO DAILY tablet 04/25/18 Gabapentin [Neurontin -] 600 mg PO TID capsule 04/25/18 Lisinopril [Prinivil] 40 mg PO DAILY tablet 04/25/18 Metoprolol Tartrate [Lopressor -] 25 mg PO DAILY tablet 04/25/18 hydrALAZINE HCL [Apresoline -] 25 mg PO BID tablet 04/25/18 REVIEW OF SYSTEMS CONSTITUTIONAL: Absent: fever, chills, diaphoresis, generalized weakness, malaise, loss of appetite, weight change HEENT: Absent: rhinorrhea, nasal congestion, throat pain, throat swelling, difficulty swallowing, mouth swelling, ear pain, eye pain, visual changes CARDIOVASCULAR: Absent:, palpitations, irregular heart rate, lightheadedness, peripheral edema Present- chest pain, syncope RESPIRATORY: Absent: cough, shortness of breath, dyspnea with exertion, orthopnea, wheezing, stridor, hemoptysis GASTROINTESTINAL: Absent: abdominal pain, abdominal distension, nausea, vomiting, diarrhea, constipation, melena, hematochezia GENITOURINARY: Absent: dysuria, frequency, urgency, hesitancy, hematuria, flank pain, genital pain MUSCULOSKELETAL: Absent: myalgia, arthralgia, joint swelling, back pain, neck pain SKIN: Absent: rash, itching, pallor HEMATOLOGIC/IMMUNOLOGIC: Absent: easy bleeding, easy bruising, lymphadenopathy, frequent infections ENDOCRINE: Absent: unexplained weight gain, unexplained weight loss, heat intolerance, cold intolerance NEUROLOGIC: Absent: headache, focal weakness or paresthesias, dizziness, unsteady gait, seizure, mental status changes, bladder or bowel incontinence PSYCHIATRIC: Absent: anxiety, depression, suicidal or homicidal ideation, hallucinations. PHYSICAL EXAMINATION Vital Signs - 24 hr 09/10/18 16:13 Temperature 98.2 F Pulse Rate 79 Respiratory 18 Rate Blood Pressure 133/87 O2 Sat by Pulse 96 Oximetry (%) GENERAL: Awake, alert, and fully oriented, in no acute distress, obese HEAD: Normal with no signs of trauma. EYES: Pupils equal, round and reactive to light, extraocular movements intact, sclera anicteric, conjunctiva clear. No lid lag. EARS, NOSE, THROAT: Ears normal, nares patent, oropharynx clear without exudates. Moist mucous membranes. NECK: Normal range of motion, supple without lymphadenopathy, JVD, or masses. LUNGS: Breath sounds equal, clear to auscultation bilaterally. No wheezes, and no crackles. No accessory muscle use. HEART: Regular rate and rhythm, normal S1 and S2 without murmur, rub or gallop. ABDOMEN: Soft, obese, nontender, not distended, normoactive bowel sounds, no guarding, no rebound, no masses. No hepatomegaly or splenomegaly. MUSCULOSKELETAL: Normal range of motion at all joints. No bony deformities or tenderness. No CVA tenderness. UPPER EXTREMITIES: 2+ pulses, warm, well-perfused. No cyanosis. No clubbing. No peripheral edema. LOWER EXTREMITIES: 2+ pulses, warm, well-perfused. No calf tenderness. No peripheral edema. NEUROLOGICAL: Cranial nerves II-XII intact. Normal speech. PSYCHIATRIC: Cooperative. Good eye contact. Appropriate mood and affect. SKIN: Warm, dry, normal turgor, no rashes or lesions noted, normal capillary refill. Laboratory Results - last 24 hr 09/10/18 09/10/18 09/10/18 17:53 17:53 17:53 WBC 6.6 RBC 4.75 Hgb 14.0 Hct 40.4 MCV 85.0 MCH 29.5 MCHC 34.7 RDW 12.8 Plt Count 227 MPV 8.4 Absolute Neuts (auto) 3.9 Neutrophils % 58.5 Lymphocytes % 25.4 Monocytes % 11.1 H Eosinophils % 4.2 Basophils % 0.8 Nucleated RBC % 0 PT with INR 11.80 INR 1.00 Sodium 141 Potassium 3.7 Chloride 106 Carbon Dioxide 28 Anion Gap 7 L BUN 12 Creatinine 1.1 Creat Clearance w eGFR > 60 Random Glucose 131 H Calcium 8.6 Total Bilirubin 0.4 AST 15 ALT 34 Alkaline Phosphatase 137 H Creatine Kinase 114 Troponin I < 0.02 Total Protein 6.8 Albumin 3.7 ekg reviewed ASSESSMENT/PLAN: #53yo man with extensive cardiac disease with syncopal episode with constant chest pain, possibly unstable angina. Troponin negative no acute ischemic changes visible on his EKG. Recent echo performed. -tele-observation -trend troponins -fall precautions -head CT - unknown if trauma to head -check orthostatics -gentle IV fluid hydration -nitroglycerin SL prn -cardiology evaluation - cardiac stress test vs cardiac cath ? -recent echo already performed -counseled on smoking cessation #HTN -amlodipine -lisinopril -metoprolol -2g Na diet #CAD -ASA -Plavix -dvt ppx -heparin sc Visit type - Emergency Visit Emergency Visit: Yes ED Registration Date: 09/10/18 Care time: The patient presented to the Emergency Department on the above date and was hospitalized for further evaluation of their emergent condition. - New Patient This patient is new to me today: Yes Date on this admission: 09/11/18 - Critical Care Critical Care patient: No
[2018-09-11] MEDS: INSULIN (NOVOLOG MIX 70/30) 100 UNITS/ML MDV SQ SCH ×2 (06:14→18:18)
[2018-09-11] MEDS: GABAPENTIN 300 MG CAPSULE (FP) PO SCH ×3 (06:15→21:48)
[2018-09-11 06:58] LABS: HEMATOCRIT 39.1 % (35.4-49); HEMOGLOBIN 13.7 GM/dL (11.7-16.9); MCH 30.1 pg (25.7-33.7); MCHC 35.1 g/dl (32.0-35.9); MEAN CELL VOLUME 85.7 fl (80-96); MEAN PLT VOLUME 8.7 fl (7.5-11.1); PLATELET COUNT 212 K/MM3 (134-434); RBC 4.56 M/mm3 (4.00-5.60); RDW 13.2 % (11.9-15.9); WHITE BLOOD COUNT 5.6 K/mm3 (4.0-10.0)
[2018-09-11 07:34] LABS: ANION GAP 5 MMOL/L (8-16); BLOOD UREA NITROGEN 12 mg/dL (7-18); CALCIUM 8.6 mg/dL (8.5-10.1); CHLORIDE 105 mmol/L (98-107); CO2 30 mmol/L (21-32); GLUCOSE,RANDOM 163 mg/dL (74-106); POTASSIUM 3.9 mmol/L (3.5-5.1); SODIUM 140 mmol/L (136-145)
[2018-09-11] MEDS: hydrALAZINE HCL 25 MG TABLET (FP) PO SCH ×2 (09:02→21:47)
[2018-09-11] MEDS: FUROSEMIDE 40 MG TABLET (FP) PO SCH (09:02)
[2018-09-11] MEDS: DULoxetine HCL 30 MG CAPSULE.DR (FP) PO SCH (09:02)
[2018-09-11] MEDS: CLOPIDOGREL BISULFATE 75 MG TABLET (FP) PO SCH (09:02)
[2018-09-11] MEDS: LISINOPRIL 20 MG TABLET (FP) PO SCH (09:02)
[2018-09-11] MEDS: amLODIPine BESYLATE 10 MG TABLET (FP) PO SCH (09:02)
[2018-09-11] MEDS: METOPROLOL TARTRATE 25 MG TABLET (FP) PO SCH (09:02)
[2018-09-11] MEDS: ASPIRIN 81 MG CHEWABLE TABLETS PO ONE (09:03)
[2018-09-11] MEDS: ASPIRIN 81 MG CHEWABLE TABLETS PO SCH (09:03)
[2018-09-11] MEDS: HEPARIN NA (PORCINE) 5,000 UNITS/ML 1ML VIAL SQ SCH ×2 (09:03→21:47)
--- NOTE | 2018-09-11 12:55 | CON.CARD ---
Consult Consult Specialty:: Cadiology Referred by:: Dr. Purnima Chapman Reason for Consultation:: Cardiac evaluation - History of Present Illness Chief Complaint: Syncope History of Present Illness: Patient is a 53 year old male with underlying history of HTN, hypercholesterolemia, DM and neuropathy in addition to CAD, history of NSTEMI in 05/2018 resulting in transfer to [facility] and PCI/stent to diagonal branch, prior PCI/stent to RCA and LCx/OM now presents after a syncopal episode. He was yelling and arguing with his granddaughter when he suddenly fell losing consciousness. He denies chest pain, SOB or palpitations. He denies paroxysmal nocturnal dyspnea or orthopnea. He denies headache or lightheadedness. He denies nausea, vomiting, diarrhea or abdominal pain. He denies fever or chills. Troponins were negative 3 sets. 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 History of Recent Travel: No Home Medications - Allergies Allergies/Adverse Reactions: Allergies Allergy/AdvReac Type Severity Reaction Status Date / Time Penicillins AdvReac Verified 07/29/18 14:20 - Home Medications Home Medications: Ambulatory Orders Atorvastatin Ca [Lipitor] 80 mg PO HS 09/25/17 Duloxetine HCl [Cymbalta -] 30 mg PO DAILY 09/25/17 Insulin (Novolog 70/30) [Novolog Mix 70/30 Flexpen -] 34 units SQ BIDAC Naproxen [Naprosyn -] 500 mg PO HS PRN 09/25/17 Sitagliptin Phosphate [Januvia] 100 mg PO DAILY 04/24/18 Amlodipine Besylate [Norvasc -] 10 mg PO DAILY tablet 04/25/18 Aspirin [ASA -] 81 mg PO DAILY tab.chew 04/25/18 Clopidogrel Bisulfate [Plavix -] 75 mg PO DAILY tablet 04/25/18 Furosemide [Lasix -] 40 mg PO DAILY tablet 04/25/18 Gabapentin [Neurontin -] 600 mg PO TID capsule 04/25/18 Lisinopril [Prinivil] 40 mg PO DAILY tablet 04/25/18 Metoprolol Tartrate [Lopressor -] 25 mg PO DAILY tablet 04/25/18 hydrALAZINE HCL [Apresoline -] 25 mg PO BID tablet 04/25/18 Family Disease History - Family Disease History Family Disease History: Heart Disease: Father, Brother (CABG, CHF) Review of Systems - Review of Systems Constitutional: denies: Chills, Fever Cardiovascular: denies: Chest Pain, Palpitations, Shortness of Breath Respiratory: denies: Cough, Hemoptysis, Orthopnea, PND, SOB, SOB on Exertion Gastrointestinal: denies: Abdominal Pain, Constipation, Diarrhea, Melena, Nausea , Rectal Bleeding, Vomiting Genitourinary: denies: Dysuria, Hematuria Musculoskeletal: denies: Back Pain, Joint Pain Neurological: reports: Headache, Syncope. denies: Confusion, Dizziness, Numbness, Parasthesia, Seizure, Unsteady Gait, Weakness Vital Signs: Vital Signs Temperature 98 F 09/11/18 10:10 Pulse Rate 74 09/11/18 10:10 Respiratory Rate 18 09/11/18 10:10 Blood Pressure 175/80 H 09/11/18 10:10 O2 Sat by Pulse Oximetry (%) 96 09/11/18 10:10 Constitutional: Yes: Well Nourished Eyes: Yes: PERRL HENT: Yes: Atraumatic Neck: Yes: Supple Respiratory: Yes: CTA Bilaterally Gastrointestinal: Yes: Normal Bowel Sounds, Soft. No: Tenderness Cardiovascular: Yes: Regular Rate and Rhythm JVD: No Carotid Bruit: No PMI: Non-Displaced Heart Sounds: Yes: S1, S2. No: Gallop Edema: No - Other Data Labs, Other Data: CBC, BMP 09/11/18 05:15 09/11/18 05:15 INR, PTT INR 1.00 (0.83-1.09) 09/10/18 17:53 Troponin, BNP 09/10/18 09/10/18 09/11/18 17:53 22:18 05:15 Troponin I < 0.02 0.02 0.02 Normal sinus rhythm, normal ECG Imaging - Results Chest X-ray: Report Reviewed (Unremarkable) Cat Scan: Report Reviewed (Head CT unremarkable) EKG: Report Reviewed Problem List - Problems (1) HTN (hypertension) Code(s): I10 - ESSENTIAL (PRIMARY) HYPERTENSION (2) Hypercholesterolemia Code(s): E78.00 - PURE HYPERCHOLESTEROLEMIA, UNSPECIFIED (3) CAD (coronary artery disease) Code(s): I25.10 - ATHSCL HEART DISEASE OF [place] CORONARY ARTERY W/O ANG PCTRS Qualifiers: Coronary Disease-Associated Artery/Lesion type: [place] artery [place] vs. transplanted heart: [place] heart Associated angina: without angina Qualified Code(s): I25.10 - Atherosclerotic heart disease of [place] coronary artery without angina pectoris (4) Diabetes mellitus Code(s): E11.9 - TYPE 2 DIABETES MELLITUS WITHOUT COMPLICATIONS Qualifiers: Diabetes mellitus type: type 2 Diabetes mellitus terminal manager insulin use: without terminal manager use Diabetes mellitus complication status: without complication Qualified Code(s): E11.9 - Type 2 diabetes mellitus without complications (5) Diabetic neuropathy Code(s): E11.40 - TYPE 2 DIABETES MELLITUS WITH DIABETIC NEUROPATHY, UNSP Assessment/Plan 1. CAD with history of NSTEMI, s/p PCI/stent, angina 2. HTN 3. DM 4. Hypercholesterolemia 5. Syncope, etiology to be determined PLAN: 1. Serial cardiac enzymes are negative 2. Doubt arrhythmia but continue monitor on tele 3. Consider echocardiography to assess LV/RV and valvular function 4. Continue Amlodipine, Atorvastatin, Hydralazine, Metoprolol and Prinivil 5. ASA and Plavix 6. Would not recommend any elective surgical procedures at this time or in the near future due to the use of ASA and Plavix and last stent implantation less than 1 year. Further plans are to follow Eliezer Sanchez MD
--- NOTE | 2018-09-11 13:47 | PN ---
Progress Note, Physician Chief Complaint: SYNCOPAL EPISODE History of Present Illness: PREVIOUS NOTES AND EVENTS REVIEWED AOX3, NAD COMPLAIN OF L AND R SIDED CHEST PRESSURE WITH DEEP INSPIRATION, TROPONIN NEG X 3 - Current Medication List Current Medications: Active Medications Amlodipine Besylate (Norvasc -) 10 mg PO DAILY [facility] Last Admin: 09/11/18 09:02 Dose: 10 mg Aspirin (Asa -) 81 mg PO DAILY [facility] Last Admin: 09/11/18 09:03 Dose: 81 mg Atorvastatin Calcium (Lipitor -) 80 mg PO [facility] Clopidogrel Bisulfate (Plavix -) 75 mg PO DAILY [facility] Last Admin: 09/11/18 09:02 Dose: 75 mg Duloxetine HCl (Cymbalta -) 30 mg PO DAILY [facility] Last Admin: 09/11/18 09:02 Dose: 30 mg Furosemide (Lasix -) 40 mg PO DAILY [facility] Last Admin: 09/11/18 09:02 Dose: 40 mg Gabapentin (Neurontin -) 600 mg PO TID [facility] Last Admin: 09/11/18 13:11 Dose: 600 mg Heparin Sodium (Porcine) (Heparin -) 5,000 unit SQ BID [facility] Last Admin: 09/11/18 09:03 Dose: 5,000 unit Hydralazine HCl (Apresoline -) 25 mg PO BID [facility] Last Admin: 09/11/18 09:02 Dose: 25 mg Insulin Aspart (Novolog Mix 70/30 Vial) 34 units SQ BIDAC [facility] Last Admin: 09/11/18 06:14 Dose: 34 units Lisinopril (Prinivil) 40 mg PO DAILY [facility] Last Admin: 09/11/18 09:02 Dose: 40 mg Metoprolol Tartrate (Lopressor -) 25 mg PO DAILY [facility] Last Admin: 09/11/18 09:02 Dose: 25 mg - Objective Vital Signs: Vital Signs Temperature 98 F 09/11/18 10:10 Pulse Rate 74 09/11/18 10:10 Respiratory Rate 18 09/11/18 10:10 Blood Pressure 175/80 H 09/11/18 10:10 O2 Sat by Pulse Oximetry (%) 96 09/11/18 10:10 Constitutional: Yes: Well Nourished, No Distress Eyes: Yes: Conjunctiva Clear Cardiovascular: Yes: WNL, Regular Rate and Rhythm Respiratory: Yes: Regular, CTA Bilaterally Gastrointestinal: Yes: Soft, Abdomen, Obese Extremities: Yes: WNL Edema: Yes Edema: LLE: 1+, RLE: 1+ Neurological: Yes: Alert, Oriented Labs: CBC, BMP 09/11/18 05:15 09/11/18 05:15 INR, PTT INR 1.00 (0.83-1.09) 09/10/18 17:53 Problem List - Problems (1) Chest pain Code(s): R07.9 - CHEST PAIN, UNSPECIFIED Qualifiers: Chest pain type: unspecified Qualified Code(s): R07.9 - Chest pain, unspecified (2) HTN (hypertension) Code(s): I10 - ESSENTIAL (PRIMARY) HYPERTENSION (3) CAD (coronary artery disease) Code(s): I25.10 - ATHSCL HEART DISEASE OF [place] CORONARY ARTERY W/O ANG PCTRS Qualifiers: Coronary Disease-Associated Artery/Lesion type: [place] artery [place] vs. transplanted heart: [place] heart Associated angina: without angina Qualified Code(s): I25.10 - Atherosclerotic heart disease of [place] coronary artery without angina pectoris (4) Diabetes mellitus Code(s): E11.9 - TYPE 2 DIABETES MELLITUS WITHOUT COMPLICATIONS Qualifiers: Diabetes mellitus type: type 2 Diabetes mellitus longterm insulin use: without terminal clerk use Diabetes mellitus complication status: without complication Qualified Code(s): E11.9 - Type 2 diabetes mellitus without complications Assessment/Plan ECHOCARDIOGRAM ORDERED CARDIOLOGY RECOMMENDATIONS APPRECIATED CONTINUE TELEMETRY MONITORING BGM DVT PPX
--- NOTE | 2018-09-11 15:04 | CON.PSY ---
Psychiatry Consult Chief Complaint: Patient seen for Psych eval for Suicidal ideas,,, Patient denies any suicidal thoughts or plans but feels depressed due to chronic medical problems. Symptoms: reports: Depressed Mood - Previous Psychiatric Treatment Outpatient: More than 6 mos ago Inpatient: None - Previous Substance Abuse Treatment Outpatient: None Inpatient: None - Reason for Previous Treatment Reason for Previous Treatment: Major Depression - Current Medications Current Medications: Active Medications Amlodipine Besylate (Norvasc -) 10 mg PO DAILY [facility] Last Admin: 09/11/18 09:02 Dose: 10 mg Aspirin (Asa -) 81 mg PO DAILY [facility] Last Admin: 09/11/18 09:03 Dose: 81 mg Atorvastatin Calcium (Lipitor -) 80 mg PO HS [facility] Clopidogrel Bisulfate (Plavix -) 75 mg PO DAILY [facility] Last Admin: 09/11/18 09:02 Dose: 75 mg Duloxetine HCl (Cymbalta -) 30 mg PO DAILY [facility] Last Admin: 09/11/18 09:02 Dose: 30 mg Furosemide (Lasix -) 40 mg PO DAILY [facility] Last Admin: 09/11/18 09:02 Dose: 40 mg Gabapentin (Neurontin -) 600 mg PO TID [facility] Last Admin: 09/11/18 13:11 Dose: 600 mg Heparin Sodium (Porcine) (Heparin -) 5,000 unit SQ BID [facility] Last Admin: 09/11/18 09:03 Dose: 5,000 unit Hydralazine HCl (Apresoline -) 25 mg PO BID [facility] Last Admin: 09/11/18 09:02 Dose: 25 mg Insulin Aspart (Novolog Mix 70/30 Vial) 34 units SQ BIDAC [facility] Last Admin: 09/11/18 06:14 Dose: 34 units Lisinopril (Prinivil) 40 mg PO DAILY [facility] Last Admin: 09/11/18 09:02 Dose: 40 mg Metoprolol Tartrate (Lopressor -) 25 mg PO DAILY [facility] Last Admin: 09/11/18 09:02 Dose: 25 mg - Allergies Allergies: Allergies Allergy/AdvReac Type Severity Reaction Status Date / Time Penicillins AdvReac Verified 07/29/18 14:20 - Current Living Status Usual Living Arrangement: Alone - Current Mental Status Evaluation Appearance: Disheveled Attitude: Cooperative - Affect Affect: Constrictive Appropriateness: Appropriate to Content - Mood Mood: Depressed - Speech/Language Expressive: Coherent - Psychomotor Activity Psychomotor Activity: Normal - Thought Process Thought Process: Intact - Thought Content Hallucinations: Absent Delusions: Absent - Self Perception Self Perception: No Impairment - Cognition Attention: Alert Orientation: Time Memory, Immediate Recall: Intact Memory, Short Term: 2/3 Memory, Remote with Promptin/3 - Concentration Serial Sevens Intact: No Simple Calculations Intact: Yes - Abstraction Proverb Interpretation: Intact Judgement: Intact - Insight Insight: Intact - Impulse Control Impulse Control: Good Control - Suicidal Ideation Suicidal Ideation: No - Homicidal Ideation Homicidal Ideation: No Assessment/Plan 1) cymbalta 20mg po od. 2) Patient has mental capacity if he wants to sign out AMA.
--- NOTE | 2018-09-11 16:09 | ECHO ---
Name: UDAY MONTALVO Exam:Adult Echocardiogram Study Date: 09/11/2018 03:27 PM Age: 53 yrs Reason For Study: SYNCOPE CAD HX OF M Height: 70 in Weight: 283 lb BSA: 2.4 m2 MMode/2D Measurements & Calculations IVSd: 1.0 cm Ao root diam: 3.3 cm LVIDd: 5.2 cm LA dimension: 3.9 cm LVIDs: 3.7 cm LVPWd: 0.99 cm EDV(Teich): 130.7 ml ESV(Teich): 58.9 ml Doppler Measurements & Calculations MV E max jayesh: 79.8 cm/sec Med Peak E' Jayesh: 8.3 cm/sec MV A max jayesh: 60.5 cm/sec Med E/e': 9.6 MV E/A: 1.3 Lat Peak E' Jayesh: 8.2 cm/sec MV dec time: 0.25 sec Lat E/e': 9.7 Procedure The study was technically difficult with many images being suboptimal in quality. Left Ventricle The left ventricle is normal in size. The left ventricle is normal in structure and function. LVEF = 60-65%. E/A reversal consistent with but not diagnostic of poor LV compliance. Right Ventricle The right ventricle is normal in size and function. Atria Normal left and right atrial size and function. Mitral Valve The mitral valve is grossly normal. Tricuspid Valve The tricuspid valve is not well visualized, but is grossly normal. There was insufficient TR detected to calculate RV systolic pressure. Aortic Valve The aortic valve is normal in structure and function. Pulmonic Valve The pulmonic valve is not well visualized. Great Vessels The aortic root is normal size. Pericardium/Pleura There is no pericardial effusion. Interpretation Summary This was essentially a normal study. The study was technically difficult with many images being suboptimal in quality. MD Hermelinda Berger 09/11/2018 04:08 PM
--- NOTE | 2018-09-11 16:29 | EKG ---
Test Reason : Blood Pressure : / mmHG Vent. Rate : 079 BPM Atrial Rate : 079 BPM P-R Int : 160 ms QRS Dur : 090 ms QT Int : 386 ms P-R-T Axes : 005 -11 064 degrees QTc Int : 442 ms NORMAL SINUS RHYTHM NORMAL ECG Confirmed by MD JER, JM ([id number]) on 09/11/2018 4:29:24 PM Referred By: Confirmed By:JM RANDLE MD
[2018-09-11] MEDS ORDERED: ATORVASTATIN CA 80 MG TABLET (FP) PO SCH (22:00)
[2018-09-12] MEDS ORDERED: oxyCODONE HCL 5 MG TABLET PO ONE (00:02)
[2018-09-12] MEDS: GABAPENTIN 300 MG CAPSULE (FP) PO SCH (06:47)
[2018-09-12] MEDS: INSULIN (NOVOLOG MIX 70/30) 100 UNITS/ML MDV SQ SCH (06:48)
[2018-09-12] MEDS ORDERED: DULoxetine HCL 20 MG CAPSULE.DR (FP) PO SCH (10:00)
[2018-09-12 10:23] VITALS: BP 159/86; PULSE 75; TEMP 97
[2018-09-12] MEDS: FUROSEMIDE 40 MG TABLET (FP) PO SCH (10:23)
[2018-09-12] MEDS: HEPARIN NA (PORCINE) 5,000 UNITS/ML 1ML VIAL SQ SCH (10:23)
[2018-09-12] MEDS: CLOPIDOGREL BISULFATE 75 MG TABLET (FP) PO SCH (10:23)
[2018-09-12] MEDS: LISINOPRIL 20 MG TABLET (FP) PO SCH (10:24)
[2018-09-12] MEDS: METOPROLOL TARTRATE 25 MG TABLET (FP) PO SCH (10:24)
[2018-09-12] MEDS: amLODIPine BESYLATE 10 MG TABLET (FP) PO SCH (10:24)
[2018-09-12] MEDS: DULoxetine HCL 30 MG CAPSULE.DR (FP) PO SCH (10:25)
[2018-09-12] MEDS: hydrALAZINE HCL 25 MG TABLET (FP) PO SCH (10:25)
[2018-09-12] MEDS: ASPIRIN 81 MG CHEWABLE TABLETS PO SCH (10:25)
--- NOTE | 2018-09-12 10:27 | PN ---
Progress Note, Physician History of Present Illness: No further near or true syncope - Current Medication List Current Medications: Active Medications Amlodipine Besylate (Norvasc -) 10 mg PO DAILY [facility] Last Admin: 09/12/18 10:24 Dose: 10 mg Aspirin (Asa -) 81 mg PO DAILY [facility] Last Admin: 09/12/18 10:25 Dose: 81 mg Atorvastatin Calcium (Lipitor -) 80 mg PO HS [facility] Last Admin: 09/11/18 21:48 Dose: 80 mg Clopidogrel Bisulfate (Plavix -) 75 mg PO DAILY [facility] Last Admin: 09/12/18 10:23 Dose: 75 mg Duloxetine HCl (Cymbalta -) 30 mg PO DAILY [facility] Last Admin: 09/12/18 10:25 Dose: 30 mg Furosemide (Lasix -) 40 mg PO DAILY [facility] Last Admin: 09/12/18 10:23 Dose: 40 mg Gabapentin (Neurontin -) 600 mg PO TID [facility] Last Admin: 09/12/18 06:47 Dose: 600 mg Heparin Sodium (Porcine) (Heparin -) 5,000 unit SQ BID [facility] Last Admin: 09/12/18 10:23 Dose: 5,000 unit Hydralazine HCl (Apresoline -) 25 mg PO BID [facility] Last Admin: 09/12/18 10:25 Dose: 25 mg Insulin Aspart (Novolog Mix 70/30 Vial) 34 units SQ BIDAC [facility] Last Admin: 09/12/18 06:48 Dose: 34 units Lisinopril (Prinivil) 40 mg PO DAILY [facility] Last Admin: 09/12/18 10:24 Dose: 40 mg Metoprolol Tartrate (Lopressor -) 25 mg PO DAILY [facility] Last Admin: 09/12/18 10:24 Dose: 25 mg - Objective Vital Signs: Vital Signs Temperature 97 F L 09/12/18 10:22 Pulse Rate 75 09/12/18 10:22 Respiratory Rate 20 09/12/18 10:22 Blood Pressure 159/86 09/12/18 10:22 O2 Sat by Pulse Oximetry (%) 96 09/12/18 02:00 Constitutional: Yes: No Distress, Calm, Thin Neck: Yes: Supple Cardiovascular: Yes: Regular Rate and Rhythm Respiratory: Yes: Regular, CTA Bilaterally Gastrointestinal: Yes: Normal Bowel Sounds, Soft Edema: No Labs: CBC, BMP 09/11/18 05:15 09/11/18 05:15 INR, PTT INR 1.00 (0.83-1.09) 09/10/18 17:53 - ....Imaging EKG: Report Reviewed (Tele: SR, no events) Problem List - Problems (1) History of coronary artery stent placement Code(s): Z95.5 - PRESENCE OF CORONARY ANGIOPLASTY IMPLANT AND GRAFT (2) Syncope Code(s): R55 - SYNCOPE AND COLLAPSE Qualifiers: Syncope type: unspecified Qualified Code(s): R55 - Syncope and collapse (3) Diastolic dysfunction without heart failure Code(s): I51.89 - OTHER ILL-DEFINED HEART DISEASES (4) HTN (hypertension) Code(s): I10 - ESSENTIAL (PRIMARY) HYPERTENSION Qualifiers: Hypertension type: essential hypertension Qualified Code(s): I10 - Essential (primary) hypertension (5) Hypercholesterolemia Code(s): E78.00 - PURE HYPERCHOLESTEROLEMIA, UNSPECIFIED (6) CAD (coronary artery disease) Code(s): I25.10 - ATHSCL HEART DISEASE OF [place] CORONARY ARTERY W/O ANG PCTRS Qualifiers: Coronary Disease-Associated Artery/Lesion type: [place] artery [place] vs. transplanted heart: [place] heart Associated angina: without angina Qualified Code(s): I25.10 - Atherosclerotic heart disease of [place] coronary artery without angina pectoris (7) Diabetes mellitus Code(s): E11.9 - TYPE 2 DIABETES MELLITUS WITHOUT COMPLICATIONS Qualifiers: Diabetes mellitus type: type 2 Diabetes mellitus buttermaker helper insulin use: without buttermaker helper use Diabetes mellitus complication status: without complication Qualified Code(s): E11.9 - Type 2 diabetes mellitus without complications Assessment/Plan Cath 06/08/18 [facility]: Severe proximal and mid LAD and subtotal diagonal ( culprit lesion) sp LAD and diag stenting in setting of NSTEMI. EF 60% with EDP 29mmHg. Echo 09/11/2018 Normal LV size and fxn without sig valve abnl 1. CAD with history of NSTEMI, s/p PCI/stent, angina 2. HTN 3. DM 4. Hypercholesterolemia 5. Syncope w/o recurrence 6. Diastolic dysfunction PLAN: 1. Ruled out for OR 2. No events on telemetry thus far 3. Continue Amlodipine 10 qd, Atorvastatin 80 qhs, Lasix 40 qd, d/c Hydralazine , increase Metoprolol 25 bid and Prinivil 40 qd 4. ASA 81 qd and Plavix 75 qd 5. May d/c home with f/u with his mechanics supervisor Dr. Alexandre Briggs [facility]
[2018-09-12 10:48] VITALS: BMI 40.6
--- NOTE | 2018-09-12 11:56 | DS ---
Physical Examination Vital Signs: Vital Signs Temperature 97 F L 09/12/18 10:22 Pulse Rate 75 09/12/18 10:22 Respiratory Rate 20 09/12/18 10:22 Blood Pressure 159/86 09/12/18 10:22 O2 Sat by Pulse Oximetry (%) 96 09/12/18 02:00 Findings/Remarks: PATIENT ADMITTED FOR SYNCOPAL EPISODE TROPONIN NEG, ECHO NORMAL STUDY WITH LVEF 60-65% CARDIO ON BOARD Constitutional: Yes: Well Nourished, No Distress, Calm Eyes: Yes: Conjunctiva Clear HENT: Yes: Normocephalic Neck: Yes: Supple Cardiovascular: Yes: Regular Rate and Rhythm Respiratory: Yes: Regular, CTA Bilaterally Gastrointestinal: Yes: Soft, Abdomen, Obese Musculoskeletal: Yes: WNL Extremities: Yes: WNL Edema: No Neurological: Yes: Alert, Oriented ...Motor Strength: WNL Psychiatric: Yes: Alert, Oriented Labs: CBC, BMP 09/11/18 05:15 09/11/18 05:15 Discharge Summary Reason For Visit: SYNCOPE CHEST PAIN Current Active Problems Chest pain (Acute) Diastolic dysfunction without heart failure (Acute) HTN (hypertension) (Acute) History of coronary artery stent placement (Acute) Hypercholesterolemia (Acute) Syncope (Acute) Procedures: Principal: ECHO Hospital Course: PATIENT ADMITTED FOR SYNCOPAL EPISODE, NO FURTHER EPISODES SINCE ADMISSION ALERT AND AWAKE, NAD DENIES CHEST PAIN, DENIES SOB TROPONIN NEG, ECHO PERFORMED WITH NORMAL STUDY Condition: Improved - Instructions Diet, Activity, Other Instructions: FOLLOW UP WITH DOVETAILER DR. KINGSTON AND PCP WITHIN 4 DAYS LOW SODIUM DIET CONT TAKING MEDS PRESCRIBED Disposition: HOME - Home Medications Comprehensive Discharge Medication List: Ambulatory Orders Atorvastatin Ca [Lipitor] 80 mg PO HS 09/25/17 Duloxetine HCl [Cymbalta -] 30 mg PO DAILY 09/25/17 Insulin (Novolog 70/30) [Novolog Mix 70/30 Flexpen -] 34 units SQ BIDAC Naproxen [Naprosyn -] 500 mg PO HS PRN 09/25/17 Sitagliptin Phosphate [Januvia] 100 mg PO DAILY 04/24/18 Amlodipine Besylate [Norvasc -] 10 mg PO DAILY tablet 04/25/18 Aspirin [ASA -] 81 mg PO DAILY tab.chew 04/25/18 Clopidogrel Bisulfate [Plavix -] 75 mg PO DAILY tablet 04/25/18 Furosemide [Lasix -] 40 mg PO DAILY tablet 04/25/18 Gabapentin [Neurontin -] 600 mg PO TID capsule 04/25/18 Lisinopril [Prinivil] 40 mg PO DAILY tablet 04/25/18 Metoprolol Tartrate [Lopressor -] 25 mg PO DAILY tablet 04/25/18 hydrALAZINE HCL [Apresoline -] 25 mg PO BID tablet 04/25/18
== END 2018-09-12 13:52 | disposition home or self-care (01) ==
LOC: JER 15:58 → JERBED 21:57 → J4W 09-11 02:46
PROVIDERS: ADMIT Internal Medicine; ATTEND Family Medicine
PROC: 3E0337Z Introduction of Electrolytic and Water Balance Substance into Peripheral Vein, Percutaneous Approach (ICD-10-PCS; principal; 2018-09-10)
PROC: 3E013VG Introduction of Insulin into Subcutaneous Tissue, Percutaneous Approach (ICD-10-PCS; 2018-09-10)
PROC: 3E033GC Introduction of Other Therapeutic Substance into Peripheral Vein, Percutaneous Approach (ICD-10-PCS; 2018-09-10)
DX: R07.9 Chest pain, unspecified (principal); R55 Syncope and collapse; I11.0 Hypertensive heart disease with heart failure; I25.2 Old myocardial infarction; I25.10 Atherosclerotic heart disease of native coronary artery without angina pectoris; I51.89 Other ill-defined heart diseases; E11.40 Type 2 diabetes mellitus with diabetic neuropathy, unspecified; E78.5 Hyperlipidemia, unspecified; J44.9 Chronic obstructive pulmonary disease, unspecified; Z85.46 Personal history of malignant neoplasm of prostate; Z85.51 Personal history of malignant neoplasm of bladder; Z87.891 Personal history of nicotine dependence; Z79.4 Long term (current) use of insulin; Z79.82 Long term (current) use of aspirin; Z95.5 Presence of coronary angioplasty implant and graft
CPT/HCPCS: 36415; 70450-TC; 71045-TC-FY; 80048; 80053; 82550; 82962; 84484; 85025; 85027; 85610; 93005; 93010; 93306-TC; 99284-25; 99285-25; G0378; J1644; J7030

== ENCOUNTER 2019-05-18 13:00 | Emergency (ER) | payer OTHER ==
[2019-05-18 13:14] VITALS: BMI 38.7
[2019-05-18] MEDS ORDERED: ASPIRIN 81 MG CHEWABLE TABLETS PO ONE ×2 (14:35→15:50)
--- NOTE | 2019-05-18 14:41 | PDOC ---
History of Present Illness - General Chief Complaint: Lightheaded Stated Complaint: CHEST TIGHT WHILE BREATHING Time Seen by Provider: 05/18/19 14:04 - History of Present Illness Initial Comments: 05/18/19 14:40 54 year old male with underlying history of HTN, hypercholesterolemia, DM and neuropathy in addition to CAD, history of NSTEMI in 05/2018 resulting in transfer to [facility] and PCI/stent to diagonal branch, prior PCI/stent to RCA and LCx/OM presents to the ED for 3-7 days of chest pressure and pain and sob. He saw his PCP Dr. Chapman today who told him to come to the ED if his chest pain didn;'t get better. According to the patient he recently decided to switch cardiologists and has an appointment with Dr. Saleem/Harmony/Ata this week Cath 06/08/18 [facility]: Severe proximal and mid LAD and subtotal diagonal ( culprit lesion) sp LAD and diag stenting in setting of NSTEMI. EF 60% with EDP 29mmHg. Echo 09/11/2018 Normal LV size and fxn without sig valve abnl Past History - Past Medical History Allergies/Adverse Reactions: Allergies Allergy/AdvReac Type Severity Reaction Status Date / Time Penicillins AdvReac Verified 05/18/19 13:14 Home Medications: Ambulatory Orders Insulin (Novolog 70/30) [Novolog Mix 70/30 Flexpen -] 34 units SQ BIDAC Naproxen [Naprosyn -] 500 mg PO HS PRN 09/25/17 Sitagliptin Phosphate [Januvia] 100 mg PO DAILY 04/24/18 Amlodipine Besylate [Norvasc -] 10 mg PO DAILY #30 tablet 09/12/18 Aspirin [ASA -] 81 mg PO DAILY #30 tab.chew 09/12/18 Atorvastatin Ca [Lipitor] 80 mg PO HS #30 tablet 09/12/18 Clopidogrel Bisulfate [Plavix -] 75 mg PO DAILY #30 tablet 09/12/18 Duloxetine HCl [Cymbalta -] 30 mg PO DAILY #30 capsule. 09/12/18 Furosemide [Lasix -] 40 mg PO DAILY #30 tablet 09/12/18 Gabapentin [Neurontin -] 600 mg PO TID #180 capsule 09/12/18 Lisinopril [Prinivil] 40 mg PO DAILY #60 tablet 09/12/18 Metoprolol Tartrate [Lopressor -] 25 mg PO BID #60 tablet 09/12/18 Anemia: No Asthma: No Cancer: Yes (bladder multiple times and at present time) Cardiac Disorders: Yes (IA with cardiac stents) CVA: Yes (TIA 03/2018) COPD: No Dementia: Yes Diabetes: Yes Disorders: Yes (kidney stones) HTN: Yes Hypercholesterolemia: Yes Seizures: No Thyroid Disease: No - Surgical History Abdominal Surgery: Yes (REPAIR UMBILICAL HERNIA) Appendectomy: Yes Cardiac Surgery: Yes (pacemaker) Neurologic Surgery: No Orthopedic Surgery: (rotator cuff) - Immunization History Immunization Up to Date: Yes - Suicide/Smoking/Psychosocial Hx Smoking History: Current every day smoker Have you smoked in the past 12 months: No Number of Cigarettes Smoked Daily: 6 If you are a former smoker, when did you quit?: 2012 Information on smoking cessation initiated: No 'Breaking Loose' booklet given: 06/07/18 Hx Alcohol Use: No Drug/Substance Use Hx: No Substance Use Type: None Hx Substance Use Treatment: No Review of Systems - Review of Systems Able to Perform ROS?: Yes Is the patient limited Greek proficient: No Constitutional: No: Symptoms Reported HEENTM: No: Symptoms Reported Respiratory: Yes: See HPI Cardiac (ROS): Yes: See HPI ABD/GI: No: Symptoms Reported : No: Symptoms Reported Musculoskeletal: No: Symptoms Reported Integumentary: No: Symptoms Reported Neurological: No: Symptoms reported All Other Systems: Reviewed and Negative *Physical Exam - Vital Signs Last Vital Signs Temp Pulse Resp BP Pulse Ox 97.9 F 68 20 162/89 98 05/18/19 13:11 05/18/19 16:54 05/18/19 16:54 05/18/19 16:54 05/18/19 16:54 - Physical Exam General Appearance: Yes: Nourished, Appropriately Dressed. No: Apparent Distress HEENT: positive: EOMI, HAZEL, Normal ENT Inspection Respiratory/Chest: positive: Lungs Clear, Normal Breath Sounds. negative: Chest Tender, Respiratory Distress Cardiovascular: positive: Regular Rhythm, Regular Rate, S1, S2 Gastrointestinal/Abdominal: positive: Normal Bowel Sounds, Soft, Protuberent. negative: Tender Extremity: positive: Normal Capillary Refill, Normal Inspection, Delayed Capillary Refill Integumentary: positive: Normal Color, Dry, Warm Neurologic: positive: Fully Oriented, Alert, Normal Response, Motor Strength 5/ 5. negative: Normal Mood/Affect (Strange affect: facetious, short tempered and abruptly placid. ) Heart Score/ECG Review - History History: Highly suspicious - Electrocardiogram EKG: Normal - Age Age: 45-65 - Risk Factors Risk Factors Heart Score: Yes Hx Hypercholesterolemia, Yes Hx Hypertension, Yes Positive family hx of cardiac disease, Yes Hx Obesity Based on the list above the patient has:: >/=3 risk factors or Hx atherosclerotic disease - Troponin Troponin: >/=3x normal limit - Score Heart Score - Total: 7 ED Treatment Course - LABORATORY CBC & Chemistry Diagram: 05/18/19 14:31 05/18/19 14:31 - ADDITIONAL ORDERS Additional order review: Laboratory Results 05/18/19 05/18/19 14:31 14:31 PT with INR 11.50 INR 0.97 Sodium 142 Potassium 3.9 Chloride 107 Carbon Dioxide 27 Anion Gap 8 BUN 16.2 Creatinine 1.1 Est GFR (CKD-EPI)AfAm 87.13 Est GFR (CKD-EPI)NonAf 75.17 Random Glucose 262 H Calcium 9.2 Magnesium 1.9 Total Bilirubin 0.3 AST 24 ALT 36 Alkaline Phosphatase 121 H Troponin I 1.40 H* Total Protein 6.7 Albumin 3.5 05/18/19 14:31 RBC 4.63 MCV 86.7 MCHC 34.5 RDW 13.8 MPV 8.3 Neutrophils % 58.3 Lymphocytes % 29.2 Monocytes % 7.7 Eosinophils % 4.2 Basophils % 0.6 - RADIOLOGY Radiology Studies Ordered: Category Date Time Status CHEST X-RAY PORTABLE* [RAD] Stat Radiology 05/18/19 14:36 Completed - Medications Given in the ED: ED Medications Discontinued Medications Generic Name Dose Route Start Last Admin Trade Name Freq PRN Reason Stop Dose Admin Aspirin 162 mg 05/18/19 14:35 05/18/19 14:50 Asa - PO 05/18/19 14:36 162 mg ONCE ONE Administration Aspirin 162 mg 05/18/19 15:50 05/18/19 16:00 Asa - PO 05/18/19 15:51 162 mg ONCE ONE Administration Heparin Sodium (Porcine) 5,000 unit 05/18/19 16:18 05/18/19 16:48 Heparin - IVPUSH 5,000 unit PRN PRN Administration Heparin Heparin Sodium/Dextrose 25,000 units in 500 mls @ 20 mls/hr 05/18/19 16:30 16:48 Heparin Infusion - IVPB 1,000 units/hr TITR HANANE 20 mls/hr Administration Protocol 1,000 UNITS/HR Metoprolol Succinate 25 mg 05/18/19 16:17 05/18/19 16:27 Toprol Xl - PO 05/18/19 16:18 25 mg ONCE ONE Administration Medical Decision Making - Medical Decision Making 05/18/19 15:28 54m with multiple NSTEMI (last May 2018) presents with chest pain adn sob for a weel cxr: no acute chest pathology EKGSinus rhtyhm with PVC's, possible anterior infarct, age undetermined . 05/18/19 16:22 Troponin elevated at 1.4 05/18/19 17:[address] 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 Saleem, who requested the patient be started on Heparin drip and transferred to [facility]. Spoke to Dr. Chavarria at [facility] who will see the patient in the [facility]. Gigi Wild NP came down to check in with patient for Dr. Chapman. Patient transferred. *DC/Admit/Observation/Transfer Diagnosis at time of Disposition: NSTEMI (non-ST elevated myocardial infarction) - Discharge Dispostion Disposition: TRANSFER ACUTE CARE/OTHER HOSP - Referrals Referrals: Purnima Chapman MD [Primary Care Provider] - - Patient Instructions - Post Discharge Activity - Transfer to Acute Care Facility Receiving Facility: [facility] Accepting Physician:: Aura
[2019-05-18] MEDS ORDERED: ASPIRIN 81 MG CHEWABLE TABLETS ONE (14:44)
[2019-05-18 14:55] LABS: BASO % 0.6 % (0-2.0); EOS % 4.2 % (0-4.5); HEMATOCRIT 40.1 % (35.4-49); HEMOGLOBIN 13.8 GM/dL (11.7-16.9); LYMPH % 29.2 % (8-40); MCH 29.9 pg (25.7-33.7); MCHC 34.5 g/dl (32.0-35.9); MEAN CELL VOLUME 86.7 fl (80-96); MEAN PLT VOLUME 8.3 fl (7.5-11.1); MONO % 7.7 % (3.8-10.2); NEUT % 58.3 % (42.8-82.8); RBC 4.63 M/mm3 (4.00-5.60); RDW 13.8 % (11.9-15.9); WHITE BLOOD COUNT 7.9 K/mm3 (4.0-10.0)
[2019-05-18 15:03] LABS: PLATELET COUNT 226 K/MM3 (134-434)
[2019-05-18 15:05] LABS: INR 0.97 (0.83-1.09); PROTHROMBIN TIME (PATIENT) 11.5 SEC (9.7-13.0)
[2019-05-18 15:25] LABS: ALBUMIN 3.5 g/dl (3.4-5.0); BILIRUBIN,TOTAL 0.3 mg/dL (0.2-1); BLOOD UREA NITROGEN 16.2 mg/dL (7-18); CALCIUM 9.2 mg/dL (8.5-10.1); CREATININE 1.1 mg/dL (0.55-1.3); MAGNESIUM 1.9 mg/dL (1.8-2.4); POTASSIUM 3.9 mmol/L (3.5-5.1); TOT PROT 6.7 g/dl (6.4-8.2)
[2019-05-18] MEDS ORDERED: metoPROLOL SUCCINATE 25 MG TAB.SR.24H (FP) PO ONE (16:17)
[2019-05-18] MEDS ORDERED: HEPARIN INFUSION - 25,000 UNITS/500 ML INFUS.BAG IVPB ONE (16:18)
[2019-05-18] MEDS ORDERED: HEPARIN NA (PORCINE) 5,000 UNITS/ML 1ML VIAL IVPUSH PRN ×2 (16:18)
[2019-05-18] MEDS ORDERED: METOPROLOL TARTRATE 25 MG TABLET (FP) ONE (16:18)
[2019-05-18] MEDS ORDERED: HEPARIN NA (PORCINE) 5,000 UNITS/ML 1ML VIAL ONE (16:18)
--- NOTE | 2019-05-18 16:28 | PDOC ---
Documentation entered by David Armenta SCRIBE, acting as scribe for Catarina Wheeler MD. Catarina Wheeler MD: This documentation has been prepared by the Geovany godoy Elijah, SCRIBE, under my direction and personally reviewed by me in its entirety. I confirm that the documentation accurately reflects all work, treatment, procedures, and medical decision making performed by me. Attending Attestation - Resident Resident Name: Yimi Torres - ED Attending Attestation I have performed the following: I have examined & evaluated the patient, The case was reviewed & discussed with the resident, I agree w/resident's findings & plan - HPI HPI: 05/18/19 15:08 Patient is a 54 year old male with a significant past medical history of multiple WA, HLD, HTN, bladder ca, prostate ca, and peripheral neuropathy who presents to the ED with x1 week of chest pain and dizziness. Patient reports that the pain is like a pressure is worse than the pain he usually feels at baseline. Patient was seen by PCP x2 days ago and was told if his symptoms worsened to come into the ED which prompted the visit today. Allergies: Penicillins PCP: Dr. Chapman - Physicial Exam PE: 05/18/19 15:11 CONSTITUTIONAL: Well-appearing; well-nourished; in no apparent distress HEAD: Normocephalic; atraumatic EYES: PERRL; EOM intact ENMT: External appears normal; normal oropharynx NECK: Supple; non-tender; no cervical lymphadenopathy CARD: Normal S1, S2; no murmurs, rubs, or gallops RESP: Normal chest excursion with respiration; breath sounds clear and equal bilaterally; no wheezes, rhonchi, or rales ABD: Soft, non-distended; non-tender; no palpable organomegaly, no palpable hernias EXT: Normal ROM in all four extremities; non-tender to palpation; distal pulses intact SKIN: Warm, dry, no rash. Tattoo noted to L-Arm NEURO: No focal neurological deficiencies. - Medical Decision Making 05/18/19 16:15 54 y/o male here in ED c/o chest pain constant x 1 week. Pt seen by PCP 3 days ago and told everything was ok but if pain persists to come in for evaluation. Yesterday the pain was present but better back to baseline. Pt says the pain was worse today so he came in for evaluation. Pt currently does not have pain. No ekg changes. PT reports history of sleep apnea and keeps falling alseep during exam not able to give more history but wakes up and continues talking with no gap in conversation. Unclear if he is truly falling asleep. Pt's troponin is currently positive at 1.4, case discussed with cardiology who recommends transfer for cath. Pt with history of NSTEMI in past, with previous stents, has h/o diabetes, obesity, elevated lipids and h/o of bladder CA. Pt stable for transfer , will contact cath lab tech for probale transfer,pt agrees to transfer.
[2019-05-18] MEDS ORDERED: HEPARIN INFUSION - 25,000 UNITS/500 ML INFUS.BAG IVPB SCH (16:30)
[2019-05-19 07:34] VITALS: BP 143/90; PULSE 71; TEMP 98.2
--- NOTE | 2019-05-20 08:17 | EKG ---
Test Reason : Blood Pressure : / mmHG Vent. Rate : 078 BPM Atrial Rate : 078 BPM P-R Int : 190 ms QRS Dur : 088 ms QT Int : 384 ms P-R-T Axes : 034 -21 066 degrees QTc Int : 437 ms SINUS RHYTHM WITH PREMATURE SUPRAVENTRICULAR COMPLEXES POOR R WAVE PROGRESSION ABNORMAL ECG WHEN COMPARED WITH ECG OF 10-SEP-2018 16:05, PREMATURE SUPRAVENTRICULAR COMPLEXES ARE NOW PRESENT Confirmed by VIET RODRIGUEZ, MATA ([id number]) on 05/20/2019 8:17:09 AM Referred By: Confirmed By:MATA LLANOS MD
== END 2019-05-18 20:39 | disposition short-term general hospital (02) ==
LOC: JER 13:00
PROC: 3E033GC Introduction of Other Therapeutic Substance into Peripheral Vein, Percutaneous Approach (ICD-10-PCS; principal; 2019-05-18)
DX: I21.4 Non-ST elevation (NSTEMI) myocardial infarction (principal); I25.2 Old myocardial infarction; I23.7 Postinfarction angina; I25.118 Atherosclerotic heart disease of native coronary artery with other forms of angina pectoris; I10 Essential (primary) hypertension; Z95.5 Presence of coronary angioplasty implant and graft; E11.9 Type 2 diabetes mellitus without complications; Z79.4 Long term (current) use of insulin; E78.00 Pure hypercholesterolemia, unspecified; C67.9 Malignant neoplasm of bladder, unspecified; Z86.73 Personal history of transient ischemic attack (TIA), and cerebral infarction without residual deficits; Z87.442 Personal history of urinary calculi
CPT/HCPCS: 36415; 71045-TC-FY; 80053; 83735; 84484; 85025; 85610; 93005; 93010; 96374; 99285-25; J1644